=== PATIENT | male | born 1930 | race Hispanic/Latino ===

== ENCOUNTER 2018-04-12 00:31 | Inpatient (IN) | payer MEDICARE, OTHER ==
[2018-04-12] MEDS ORDERED: Sodium Chloride 0.9% 1,000 ML IV ONE ×2 (00:53→05:50)
--- NOTE | 2018-04-12 00:53 | C.PDOC ---
History Of Present Illness 87 year old male presents to the ED c/o nausea, vomit, and abdominal pain that started today. Patient reports symptoms started after he ate mussels and spinach for dinner tonight. Patient also c/o cough, able to speak in complete sentences. Patient denies fever, chills, diarrhea, CP, SOB, rash, sick contacts. Time Seen by Provider: 04/12/18 00:53 Chief Complaint (Nursing): Abdominal Pain History Per: Patient History/Exam Limitations: no limitations Onset/Duration Of Symptoms: Hrs Current Symptoms Are (Timing): Still Present Context: Food Severity: Moderate Pain Scale Rating Of: 5 Location Of Pain/Discomfort: Diffuse Radiation Of Pain To:: None Quality Of Discomfort: Dull, Cramping Associated Symptoms: Nausea, Vomiting. denies: Diarrhea, Urinary Symptoms Exacerbating Factors: Food Alleviating Factors: None Last Bowel Movement: Today Recent travel outside of the [place]: No Additional History Per: Family Past Medical History Reviewed: Historical Data, Nursing Documentation, Vital Signs Vital Signs: Last Vital Signs Temp 98.2 F 04/12/18 00:34 Pulse 108 H 04/12/18 00:34 Resp 20 04/12/18 00:34 BP 130/92 H 04/12/18 00:34 Pulse Ox 98 04/12/18 00:34 - Medical History PMH: Asthma, HTN Surgical History: Coronary Stent Family History: States: Unknown Family Hx - Social History Hx Alcohol Use: No Hx Substance Use: No - Immunization History Hx Tetanus Toxoid Vaccination: No Hx Influenza Vaccination: Yes Hx Pneumococcal Vaccination: No Review Of Systems Constitutional: Negative for: Fever, Chills ENT: Negative for: Throat Pain Cardiovascular: Negative for: Chest Pain, Palpitations Respiratory: Positive for: Cough. Negative for: Shortness of Breath Gastrointestinal: Positive for: Nausea, Vomiting, Abdominal Pain. Negative for: Diarrhea Genitourinary: Negative for: Dysuria Musculoskeletal: Negative for: Back Pain Skin: Negative for: Rash Neurological: Negative for: Weakness, Numbness, Headache Psych: Negative for: Anxiety Physical Exam - Physical Exam Appears: Non-toxic, In Acute Distress Skin: Warm, Dry Head: Normacephalic Eye(s): bilateral: Normal Inspection Oral Mucosa: Moist Neck: Supple Chest: Symmetrical Cardiovascular: Rhythm Regular Respiratory: No Rales, Rhonchi (scattered), No Wheezing Gastrointestinal/Abdominal: Bowel Sounds (active), Soft, Tenderness (diffuse mildly), No Guarding, No Rebound Back: Normal Inspection Extremity: Normal ROM Extremity: Bilateral: Atraumatic, Normal Color And Temperature, Normal ROM Pulses: Left Dorsalis Pedis: Normal, Right Dorsalis Pedis: Normal Neurological/Psych: Oriented x3, Normal Speech, Normal Cognition Gait: Steady ED Course And Treatment - Laboratory Results Result Diagrams: 04/12/18 01:09 04/12/18 01:09 ECG: Interpreted By Me, Viewed By Me ECG Rhythm: Sinus Rhythm (93), Nonspecific Changes (lahb,occ pvc's) O2 Sat by Pulse Oximetry: 98 (ON RA) Pulse Ox Interpretation: Normal - Radiology CXR: Interpreted by Me, Viewed By Me CXR Interpretation: Yes: Cardiomegaly. No: Infiltrates, Fracture, Pnemothorax - CT Scan/US CT abd/pelvis Other Rad Studies (CT/US): Read By Radiologist, Radiology Report Reviewed CT/US Interpretation: CT SCAN OF THE ABDOMEN AND PELVIS WITH CONTRAST. CLINICAL HISTORY: Hematemesis. TECHNIQUE: Multiple axial and coronal CT images were obtained through the abdomen and pelvis after administration of intravenous contrast material. COMMENTS: Bilateral basilar atelectatic pulmonary changes. Large hiatal hernia. Fluid-filled distended stomach. Cholelithiasis. Uncomplicated colonic diverticulosis. Fat containing umbilical hernia without incarceration. The liver is of uniform attenuation without mass or defect. There is no intra or extrahepatic biliary ductal dilatation. The spleen is normal. The gallbladder is within normal limits. The pancreas is of normal contour and attenuation characteristics. There is no evidence of adrenal mass. 3.5 cm left peripelvic megan;l cyst . Both kidneys demonstrate prompt and equal nephrograms. The kidneys are normal in size, shape and configuration. There is no evidence of renal or ureteral mass. No renal or ureteral calculi are identified. There is no hydroureter or hydronephrosis. No evidence for appendicitis. There is no bowel wall thickening. No evidence for small or large bowel obstruction. There is no evidence of abdominal ascites or lymphadenopathy. There is no evidence of intrinsic or extrinsic bladder mass. There is no pelvic ascites or lymphadenopathy. Images of the lung bases show no evidence of pleural or parenchymal mass. There are no pleural effusions. The bony structures are free of lytic or blastic lesions. IMPRESSION: Bilateral basilar atelectatic pulmonary changes. Large hiatal hernia. Fluid-filled distended stomach. Probably gastroparesis. Insertion of nasogastric tube is suggested to decompress the significantly distended stomach. Cholelithiasis. Uncomplicated colonic diverticulosis. Fat containing umbilical hernia without incarceration. . Electronically signed on Apr 12, 2018 4:57:57 AM EST by: Cindi Kirk M.D., Certified by ABR, MSK, Neuroradiology Progress Note: Plan: - Labs. - CXR. - Protonix 40 mg IVP. - IV fluids. - Zofran 4 mg IVP. - UA. While in the ED patient had an episode of coffee ground emesis. I've placed an 18 fr ngt right nare without any difficulty. pt tolerated the procedure well. Approx 500 cc of black stomach contets drained(heme +) Critical Care Time - Critical Care Note Total Time (in mins): 30 Documented critical care: time excludes all time spent performing seperately billable procedures. Disposition Discussed With : Kyle Woods Comment: accepted the pt on his service and took over the care at 5:17 AM Doctor Will See Patient In The: Hospital Counseled Patient/Family Regarding: Studies Performed, Diagnosis - Disposition Disposition: HOSPITALIZED Disposition Time: 00:53 Condition: FAIR Forms: [facility] (Martiniquais) - POA Present On Arrival: Poor Glycemic Control - Clinical Impression Clinical Impression: Abdominal pain, Nausea, Vomiting, Upper GI bleed - Scribe Statement The provider has reviewed the documentation as recorded by the Scribe Yehuda Damico All medical record entries made by the Scribe were at my direction and personally dictated by me. I have reviewed the chart and agree that the record accurately reflects my personal performance of the history, physical exam, medical decision making, and the department course for this patient. I have also personally directed, reviewed, and agree with the discharge instructions and disposition. Decision To Admit - Pt Status Changed To: Hospital Disposition Of: Inpatient - Admit Certification Admit to Inpatient:: After my assessment, the patient will require hospitalization for at least two midnights. This is because of the severity of symptoms shown, intensity of services needed, and/or the medical risk in this patient being treated as an outpatient. - InPatient: Physician Admission Certification:: After my assessment, the patient will require hospitalization for at least two midnights. This is because of the severity of symptoms shown, intensity of services needed, and/or the medical risk in this patient being treated as an outpatient. - . Bed Request Type: Telemetry Admitting Physician: Kyle Woods Patient Diagnosis: Abdominal pain, Nausea, Vomiting, Upper GI bleed
[2018-04-12] MEDS ORDERED: Sodium Chloride 0.9% 1,000 ML ONE (01:12)
[2018-04-12 01:22] LABS: BASO % 0.2 % (0.0-2.0); HEMOGLOBIN 13.7 g/dL (12.0-18.0); LYMPH # 0.6 K/uL (1.0-4.3); LYMPH % 3.2 % (20.0-40.0); MEAN CELL VOLUME 88.6 fL (80.0-94.0); MEAN CORPUSCULAR HEMOGLOBIN 29.8 pg (27.0-31.0); MEAN CORPUSCULAR HGB CONC 33.6 g/dL (33.0-37.0); MONO # 1.2 K/uL (0.0-0.8); MONO % 6.5 % (0.0-10.0); NEUT # 16.4 K/uL (1.8-7.0); NEUT % 90.1 % (50.0-75.0); PLATELET COUNT 334 K/uL (130-400); RED CELL DISTRIBUTION WIDTH 14.7 % (11.5-14.5); WHITE BLOOD COUNT 18.2 K/uL (4.8-10.8)
[2018-04-12 01:29] LABS: ALB/GLOB RATIO 1.4 (1.0-2.1); ALBUMIN 4.2 g/dL (3.5-5.0); ALT/SGPT 26 U/L (21-72); AST/SGOT 27 U/L (17-59); BLOOD UREA NITROGEN 38 mg/dL (9-20); GFR NON-AFRICAN AMERICAN 57; LIPASE 21 U/L (23-300)
[2018-04-12] MEDS: Albuterol-Ipratrop 3 mg / 0.5 (3 ml) UD IH SCH ×2 (01:45→02:01)
[2018-04-12] MEDS ORDERED: Albuterol-Ipratrop 3 mg / 0.5 (3 ml) UD ONE (02:01)
[2018-04-12 02:13] LABS: MONOCYTE 6 % (0-10); NEUTROPHIL 92 % (50-75); PLATELET ESTIMATE NORMAL (NORMAL); REACTIVE LYMPHOCYTES 2 % (0-0); TOTAL CELLS COUNTED 100
[2018-04-12 03:01] LABS: LYMPHOCYTE 0 % (20-40)
[2018-04-12] MEDS ORDERED: Piperacillin/Tazobact 3.375 gm 100 ML IVPB STA (03:12)
[2018-04-12] MEDS ORDERED: Iodixanol 320 MG/ML 100 ML BOTTLE IV ONE (03:51)
[2018-04-12] MEDS ORDERED: Piperacillin/Tazobact 3.375 gm 100 ML IVPB ONE (04:24)
[2018-04-12 07:03] LABS: INR 1.2; PROTHROMBIN TIME 12.6 SECONDS (9.7-12.2)
[2018-04-12] MEDS: Dextrose 5%/0.45% NS 1,000 ML IV SCH ×2 (07:07→18:00)
--- NOTE | 2018-04-12 07:27 | DS ---
I was called for GI consultation early this morning 04/12/2018. The patient is seen in the emergency room. Case discussed at length with the ER physician as well as the staff in the ER. All the available lab and radiology study results seen. This is an 87-year-old male, presented with nausea and vomiting, abdominal pain with reported hematemesis of coffee-ground material, measured about 1000 mL as per the ER statement. He was found to have leukocytosis of 18.2 with blood glucose level 151, BUN 38 but normal creatinine with CO2 content of 32 indicative of metabolic respiratory alkalosis. The patient has stable vital signs and the PT and PTT ordered by myself for potential upper endoscopy at a.m. IMPRESSION: 1. Upper gastrointestinal bleeding. 1. Known history of hypertension and bronchial asthma. 3. Leukocytosis, possibility of aspiration pneumonia was raised. 4. Official report of abdominal and pelvic CAT scan is still however pending in the computer. SUGGESTIONS: 1. Reglan IV. NG tube for gravity. 2. Flagyl IV. 3. Upper endoscopy at a.m. 4. Correct an underlying coagulopathy. Johann Guerra MD
[2018-04-12] MEDS: metroNIDAZOLE IV 500 mg/100 ml 500 MG/100 ML BAG IVPB SCH ×3 (07:35→22:37)
[2018-04-12 09:11] LABS: HEMOGLOBIN 12.8 g/dL (12.0-18.0); MEAN CELL VOLUME 89.3 fL (80.0-94.0); MEAN CORPUSCULAR HEMOGLOBIN 30.1 pg (27.0-31.0); MEAN CORPUSCULAR HGB CONC 33.7 g/dL (33.0-37.0); MEAN PLATELET VOLUME 7.8 fL (7.2-11.7); RBC 4.24 Mil/uL (4.40-5.90); RED CELL DISTRIBUTION WIDTH 15.1 % (11.5-14.5); WHITE BLOOD COUNT 17.6 K/uL (4.8-10.8)
--- NOTE | 2018-04-12 09:16 | CT ---
Date of service: 04/12/2018 PROCEDURE: CT Abdomen and Pelvis with contrast HISTORY: hematemesis COMPARISON: None available. TECHNIQUE: CT scan of the abdomen and pelvis was performed after administration of intravenous contrast. Oral contrast was not administered. Coronal and sagittal reformatted images were obtained. Contrast dose: 100 mL Visipaque 320 Radiation dose: Total exam DLP = 980.14 mGy-cm. This CT exam was performed using one or more of the following dose reduction techniques: Automated exposure control, adjustment of the mA and/or kV according to patient size, and/or use of iterative reconstruction technique. FINDINGS: LOWER THORAX: The visualized right lung is clear. There is compressive atelectasis in the left medial lung base. LIVER: Normal in size with homogeneous enhancement. Fatty liver. No gross lesion or ductal dilatation. GALLBLADDER AND BILE DUCTS: Small calcified gallstones without wall thickening or pericholecystic fluid. PANCREAS: Mild fatty atrophy of the pancreas. No gross lesion or ductal dilatation. SPLEEN: Normal in size and appearance. ADRENALS: No discrete nodule. KIDNEYS AND URETERS: Normal in size with homogeneous enhancement. No hydronephrosis. No solid mass. VASCULATURE: No aortic aneurysm. There are advanced aortic atherosclerotic calcifications present. BOWEL: Evaluation of the bowel is limited in the absence of oral contrast. There are fluid-filled mildly prominent small bowel loops. There is extensive colonic diverticulosis without CT evidence for acute diverticulitis. The colon is grossly normal in appearance. No bowel wall thickening or obstruction. APPENDIX: Normal appendix. PERITONEUM: No free fluid. No free air. LYMPH NODES: No enlarged lymph nodes. BLADDER: Well distended and normal in appearance. REPRODUCTIVE: The prostate gland is normal in size. BONES: No acute fracture. There is diffuse bone demineralization and multilevel degenerative changes in the spine. OTHER FINDINGS: The stomach is markedly distended and fluid-filled. There is a large sliding hiatal hernia with herniation of most of the stomach including the gastric cardia and body. There is a small fat containing umbilical hernia IMPRESSION: 1. Large sliding hiatal hernia with herniation of a large portion of stomach including fluid-filled distended gastric cardia and body.. 2. Fluid-filled mildly prominent small bowel loops may represent nonspecific acute infectious/inflammatory enteritis. No bowel obstruction. 3. Extensive colonic diverticulosis without CT evidence for acute diverticulitis. 4. Cholelithiasis. A preliminary report was provided by [facility] services. The final report is tagged to the PA review folder.
[2018-04-12 09:28] LABS: SQUAMOUS EPITHIAL < 1 /hpf (0-5); URINE BILIRUBIN NEGATIVE (NEGATIVE); URINE BLOOD NEGATIVE (NEGATIVE); URINE CLARITY Clear (Clear); URINE COLOR Yellow (YELLOW); URINE GLUCOSE (UA) NORMAL (Normal); URINE LEUKOCYTE ESTERASE NEG Leu/uL (Negative); URINE PROTEIN NEGATIVE (NEGATIVE); URINE UROBILINOGEN NORMAL mg/dL (0.2-1.0)
--- NOTE | 2018-04-12 10:07 | RAD ---
Date of service: 04/12/2018 HISTORY: Cough COMPARISON: No prior. TECHNIQUE: Chest PA and lateral FINDINGS: LINES AND TUBES: None. LUNG AND PLEURA: The lungs are well inflated and clear. No pleural effusion or pneumothorax. HEART AND MEDIASTINUM: Cardiomegaly. There are aortic atherosclerotic calcifications present. The hilar and mediastinal contours are within normal limits. SKELETAL STRUCTURES: The bony structures are within normal limits for the patient's age. VISUALIZED UPPER ABDOMEN: Normal. OTHER FINDINGS: None. IMPRESSION: No active pulmonary disease. Large hiatal hernia.
[2018-04-12 16:52] LABS: HEMOGLOBIN 12.1 g/dL (12.0-18.0); MEAN CELL VOLUME 90.1 fL (80.0-94.0); MEAN CORPUSCULAR HEMOGLOBIN 29.3 pg (27.0-31.0); MEAN CORPUSCULAR HGB CONC 32.5 g/dL (33.0-37.0); MEAN PLATELET VOLUME 7.9 fL (7.2-11.7); RBC 4.13 Mil/uL (4.40-5.90); RED CELL DISTRIBUTION WIDTH 14.9 % (11.5-14.5); WHITE BLOOD COUNT 14.6 K/uL (4.8-10.8)
[2018-04-12] MEDS ORDERED: Albuterol-Ipratrop 3 mg / 0.5 (3 ml) UD INH STA (20:53)
--- NOTE | 2018-04-12 22:23 | CP.PCM.HP ---
Past Patient History - Past Medical History & Family History Past Medical History?: Yes - Past Social History Smoking Status: Never Smoked - CARDIAC Hx Hypertension: Yes - PULMONARY Hx Asthma: Yes - NEUROLOGICAL Hx Neurological Disorder: No - HEENT Hx HEENT Problems: No - MUSCULOSKELETAL/RHEUMATOLOGICAL Hx Falls: No - GASTROINTESTINAL Hx Constipation: Yes - PSYCHIATRIC Hx Substance Use: No - SURGICAL HISTORY Hx Coronary Stent: Yes - ANESTHESIA Hx Anesthesia: Yes Hx Anesthesia Reactions: No Has any member of the family had a problem w/ anesthesia?: No Meds Allergies/Adverse Reactions: Allergies Allergy/AdvReac Type Severity Reaction Status Date / Time No Known Allergies Allergy Unverified 04/12/18 00:41 Results - Vital Signs Recent Vital Signs: Last Vital Signs Temp 98.5 F 04/12/18 07:36 Pulse 85 04/12/18 21:08 Resp 20 04/12/18 07:36 BP 104/55 L 04/12/18 07:36 Pulse Ox 98 04/12/18 07:36 - Labs Result Diagrams: 04/12/18 16:38 04/12/18 01:09 Labs: Laboratory Results - last 24 hr 04/12/18 04/12/18 04/12/18 01:09 01:09 01:40 WBC 18.2 H RBC 4.60 Hgb 13.7 Hct 40.8 MCV 88.6 MCH 29.8 MCHC 33.6 RDW 14.7 H Plt Count 334 MPV 8.0 Neut % (Auto) 90.1 H Lymph % (Auto) 3.2 L [place] % (Auto) 6.5 Eos % (Auto) 0.0 Baso % (Auto) 0.2 Neut # (Auto) 16.4 H Lymph # (Auto) 0.6 L [place] # (Auto) 1.2 H Eos # (Auto) 0.0 Baso # (Auto) 0.0 Neutrophils % (Manual) 92 H Lymphocytes % (Manual) 0 L Reactive Lymphs % 2 H Monocytes % (Manual) 6 Platelet Estimate Normal PT INR APTT Sodium 137 Potassium 3.7 Chloride 96 L Carbon Dioxide 32 H Anion Gap 13 BUN 38 H Creatinine 1.2 Est GFR ( Amer) > 60 Est GFR (Non-Af Amer) 57 Random Glucose 151 H Calcium 9.0 Total Bilirubin 0.8 AST 27 ALT 26 Alkaline Phosphatase 105 Total Protein 7.3 Albumin 4.2 Globulin 3.0 Albumin/Globulin Ratio 1.4 Lipase 21 L Carcinoembryonic Ag Urine Color Urine Clarity Urine pH Ur Specific Caro Urine Protein Urine Glucose (UA) Urine Ketones Urine Blood Urine Nitrate Urine Bilirubin Urine Urobilinogen Ur Leukocyte Esterase Urine WBC (Auto) Urine RBC (Auto) Ur Squamous Epith Cells Stool Occult Blood Blood Type O POSITIVE Antibody Screen Negative 04/12/18 04/12/18 04/12/18 04:14 06:45 09:09 WBC RBC Hgb Hct MCV MCH MCHC RDW Plt Count MPV Neut % (Auto) Lymph % (Auto) [place] % (Auto) Eos % (Auto) Baso % (Auto) Neut # (Auto) Lymph # (Auto) [place] # (Auto) Eos # (Auto) Baso # (Auto) Neutrophils % (Manual) Lymphocytes % (Manual) Reactive Lymphs % Monocytes % (Manual) Platelet Estimate PT 12.6 H INR 1.2 APTT 27 Sodium Potassium Chloride Carbon Dioxide Anion Gap BUN Creatinine Est GFR ( Amer) Est GFR (Non-Af Amer) Random Glucose Calcium Total Bilirubin AST ALT Alkaline Phosphatase Total Protein Albumin Globulin Albumin/Globulin Ratio Lipase Carcinoembryonic Ag Urine Color Yellow Urine Clarity Clear Urine pH 5.0 Ur Specific Caro 1.010 Urine Protein Negative Urine Glucose (UA) Normal Urine Ketones Negative Urine Blood Negative Urine Nitrate Negative Urine Bilirubin Negative Urine Urobilinogen Normal Ur Leukocyte Esterase Neg Urine WBC (Auto) < 1 Urine RBC (Auto) < 1 Ur Squamous Epith Cells < 1 Stool Occult Blood Positive H Blood Type Antibody Screen 04/12/18 04/12/18 04/12/18 09:09 09:09 16:38 WBC 17.6 H 14.6 H RBC 4.24 L 4.13 L Hgb 12.8 12.1 Hct 37.9 37.2 MCV 89.3 90.1 MCH 30.1 29.3 MCHC 33.7 32.5 L RDW 15.1 H 14.9 H Plt Count 283 248 MPV 7.8 7.9 Neut % (Auto) Lymph % (Auto) [place] % (Auto) Eos % (Auto) Baso % (Auto) Neut # (Auto) Lymph # (Auto) [place] # (Auto) Eos # (Auto) Baso # (Auto) Neutrophils % (Manual) Lymphocytes % (Manual) Reactive Lymphs % Monocytes % (Manual) Platelet Estimate PT INR APTT Sodium Potassium Chloride Carbon Dioxide Anion Gap BUN Creatinine Est GFR ( Amer) Est GFR (Non-Af Amer) Random Glucose Calcium Total Bilirubin AST ALT Alkaline Phosphatase Total Protein Albumin Globulin Albumin/Globulin Ratio Lipase Carcinoembryonic Ag 2.6 Urine Color Urine Clarity Urine pH Ur Specific Caro Urine Protein Urine Glucose (UA) Urine Ketones Urine Blood Urine Nitrate Urine Bilirubin Urine Urobilinogen Ur Leukocyte Esterase Urine WBC (Auto) Urine RBC (Auto) Ur Squamous Epith Cells Stool Occult Blood Blood Type Antibody Screen
[2018-04-13] MEDS: Dextrose 5%/0.45% NS 1,000 ML IV SCH ×3 (00:59→18:00)
[2018-04-13] MEDS: Albuterol-Ipratrop 3 mg / 0.5 (3 ml) UD INH SCH ×3 (01:32→19:15)
[2018-04-13 02:02] LABS: HEMOGLOBIN 11.7 g/dL (12.0-18.0); MEAN CELL VOLUME 89.5 fL (80.0-94.0); MEAN CORPUSCULAR HEMOGLOBIN 29.8 pg (27.0-31.0); MEAN CORPUSCULAR HGB CONC 33.2 g/dL (33.0-37.0); MEAN PLATELET VOLUME 7.8 fL (7.2-11.7); RBC 3.94 Mil/uL (4.40-5.90); RED CELL DISTRIBUTION WIDTH 14.8 % (11.5-14.5); WHITE BLOOD COUNT 10.8 K/uL (4.8-10.8)
--- NOTE | 2018-04-13 02:52 | HP ---
CHIEF COMPLAINT: Nausea, vomiting, abdominal pain x1 day. HISTORY OF PRESENT ILLNESS: This is an 87-year-old elderly male who is poor historian and unable to give enough information but according to record, he has history of asthma, hypertension, and coronary artery disease, status post stent. He came in because of abdominal pain which is diffuse with abdominal distention for an unknown amount of time; although the patient links this to him eating mussels and spinach on the day of the admission. According to the patient, he has cough. He denies any shortness of breath. He denies any fever, chills. He denies any diarrhea, chest pain, shortness of breath, rash, or skin tags. The patient denies any dysuria, hematuria or pyuria. He denies any history of nocturia. He denies any history of urgency, hesitancy. The patient denies any history of prior abdominal problem. He denies any hip pain, neck pain or leg pain. He denies any tingling, numbness or paresthesias. He denies any history of fever, . PAST MEDICAL HISTORY: Asthma, hypertension, coronary artery disease, status post stent. ALLERGIES: UNKNOWN. CURRENT MEDICATIONS: At home, aspirin. FAMILY HISTORY: Noncontributory. PHYSICAL EXAMINATION: GENERAL: An elderly male who is a poor historian, complying with the question. VITAL SIGNS: Blood pressure 103/59, pulse 80, respiratory rate 22, and temperature 98.5. SKIN: No rashes, no bruises, no purpura. HEENT: Atraumatic and normocephalic. Negative pallor. Negative jaundice. Extraocular movements are intact. NECK: Supple. No JVD. No lymph nodes. No thyromegaly. CHEST WALL: Bilateral symmetrical expansion. No deformity. LUNGS: Clear. No rales, no rhonchi. CARDIOVASCULAR SYSTEM: S1 and S2, regular. No heave, no thrill. ABDOMEN: Distended. Bowel sounds are diminished and is very diffusely tender. RECTAL: Enlarged prostate. EXTREMITIES: No clubbing, cyanosis, or edema. CENTRAL NERVOUS SYSTEM: Awake, alert, and oriented x3. ASSESSMENT: 1. Rule out small bowel obstruction. 2. Diverticulosis, rule out diverticulitis. 3. Large hiatal hernia. 4. Dehydration. PLAN: Admit. Detailed orders are written. Seen and examined. Kyle Woods MD
--- NOTE | 2018-04-13 05:39 | CP.PCM.CON ---
History of Present Illness - History of Present Illness History of Present Illness: Surgery Consult Note for Dr. Haas 87 year old male, past medical history significant for hypertension and asthma, consulted for small bowel obstruction. Patient states he came into the emergency department with nausea, vomiting and abdominal pain. In the ED, he was noted to have coffee ground emesis for which an NGT was placed that had an initial output of 850cc. GI was consulted who eventually removed the NGT and scheduled patient for an EGD to be done 04/13. Last bowel movement was 3-4 days ago. Denies passing flatus. Cannot recall if he has had a colonoscopy or EGD done in the past. Patient admits to a cough. Denies f/c, abdominal pain, n/v/d, SOB, CP, palpitations, headaches, dizziness, or urinary symptoms. PMH: See above PSH: Coronary stents, hernia repair FH: Noncontributory SH: Denies tobacco, alcohol, drugs ALL: NKDA Meds: See MAR Review of Systems - Constitutional Constitutional: absent: Chills, Fever - EENT Eyes: absent: Blurred Vision, Change in Vision Nose/Mouth/Throat: absent: Nasal Congestion, Nasal Discharge - Cardiovascular Cardiovascular: absent: Chest Pain, Dyspnea - Respiratory Respiratory: Cough. absent: Dyspnea - Gastrointestinal Gastrointestinal: absent: Abdominal Pain, Nausea, Vomiting - Genitourinary Genitourinary: absent: Difficulty Urinating, Dysuria - Musculoskeletal Musculoskeletal: absent: Back Pain, Neck Pain - Integumentary Integumentary: absent: Bleeding Lesions, New Lesions - Neurological Neurological: absent: Confusion, Dizziness, Headaches - Psychiatric Psychiatric: absent: Anxiety, Depression Past Patient History - Past Medical History & Family History Past Medical History?: Yes - Past Social History Smoking Status: Never Smoked - CARDIAC Hx Hypertension: Yes - PULMONARY Hx Asthma: Yes - NEUROLOGICAL Hx Neurological Disorder: No - HEENT Hx HEENT Problems: No - MUSCULOSKELETAL/RHEUMATOLOGICAL Hx Falls: No - GASTROINTESTINAL Hx Constipation: Yes - PSYCHIATRIC Hx Substance Use: No - SURGICAL HISTORY Hx Coronary Stent: Yes - ANESTHESIA Hx Anesthesia: Yes Hx Anesthesia Reactions: No Has any member of the family had a problem w/ anesthesia?: No Meds Allergies/Adverse Reactions: Allergies Allergy/AdvReac Type Severity Reaction Status Date / Time No Known Allergies Allergy Unverified 04/12/18 00:41 - Medications Medications: Current Medications Albuterol/Ipratropium (Duoneb 3 Mg/0.5 Mg (3 Ml) Ud) 3 ml INH RQ6 [place] Last Admin: 04/13/18 01:32 Dose: Not Given Dextrose/Sodium Chloride (Dextrose 5%/0.45% Ns 1000 Ml) 1,000 mls @ 80 mls/hr IV .[id number] [place] Last Admin: 04/13/18 00:59 Dose: 80 mls/hr Metronidazole (Flagyl) 500 mg in 100 mls @ 100 mls/hr IVPB Q8H [facility]; Protocol Last Admin: 04/12/18 22:37 Dose: 100 mls/hr Ceftriaxone Sodium 1 gm/ (Sodium Chloride) 100 mls @ 100 mls/hr IVPB DAILY [facility]; Protocol Last Admin: 04/12/18 09:23 Dose: 100 mls/hr Metoclopramide HCl (Reglan) 5 mg IVP Q6H [place] Last Admin: 04/13/18 03:58 Dose: 5 mg Pantoprazole Sodium (Protonix Inj) 40 mg IVP Q12H [facility] Last Admin: 04/12/18 21:58 Dose: 40 mg Pneumococcal Polyvalent Vaccine (Pneumovax 23 Vaccine) 0.5 ml IM .ONCE ONE Stop: 04/15/18 10:01 Physical Exam - Constitutional Appears: Well, Non-toxic, No Acute Distress - Head Exam Head Exam: ATRAUMATIC, NORMAL INSPECTION, NORMOCEPHALIC - Eye Exam Eye Exam: EOMI - ENT Exam ENT Exam: Mucous Membranes Dry - Respiratory Exam Respiratory Exam: NORMAL BREATHING PATTERN. absent: Respiratory Distress - Cardiovascular Exam Cardiovascular Exam: REGULAR RHYTHM. absent: Tachycardia - GI/Abdominal Exam GI & Abdominal Exam: Normal Bowel Sounds, Soft. absent: Distended, Guarding, Rebound, Tenderness - Neurological Exam Neurological exam: Alert - Psychiatric Exam Psychiatric exam: Normal Affect, Normal Mood - Skin Skin Exam: Dry, Intact, Normal Color, Warm Results - Vital Signs Recent Vital Signs: Last Vital Signs Temp 98.4 F 04/12/18 23:45 Pulse 76 04/12/18 23:45 Resp 20 04/12/18 23:45 BP 133/83 04/12/18 23:45 Pulse Ox 95 04/12/18 23:45 - Labs Result Diagrams: 04/13/18 02:00 04/12/18 01:09 Labs: Laboratory Results - last 24 hr 04/12/18 04/12/18 04/12/18 06:45 09:09 09:09 WBC 17.6 H RBC 4.24 L Hgb 12.8 Hct 37.9 MCV 89.3 MCH 30.1 MCHC 33.7 RDW 15.1 H Plt Count 283 MPV 7.8 PT 12.6 H INR 1.2 APTT 27 Carcinoembryonic Ag Urine Color Yellow Urine Clarity Clear Urine pH 5.0 Ur Specific [place] 1.010 Urine Protein Negative Urine Glucose (UA) Normal Urine Ketones Negative Urine Blood Negative Urine Nitrate Negative Urine Bilirubin Negative Urine Urobilinogen Normal Ur Leukocyte Esterase Neg Urine WBC (Auto) < 1 Urine RBC (Auto) < 1 Ur Squamous Epith Cells < 1 04/12/18 04/12/18 04/13/18 09:09 16:38 02:00 WBC 14.6 H 10.8 RBC 4.13 L 3.94 L Hgb 12.1 11.7 L Hct 37.2 35.3 MCV 90.1 89.5 MCH 29.3 29.8 MCHC 32.5 L 33.2 RDW 14.9 H 14.8 H Plt Count 248 230 MPV 7.9 7.8 PT INR APTT Carcinoembryonic Ag 2.6 Urine Color Urine Clarity Urine pH Ur Specific [place] Urine Protein Urine Glucose (UA) Urine Ketones Urine Blood Urine Nitrate Urine Bilirubin Urine Urobilinogen Ur Leukocyte Esterase Urine WBC (Auto) Urine RBC (Auto) Ur Squamous Epith Cells Assessment & Plan - Assessment and Plan (Free Text) Assessment: 87M w/ upper GI bleed CT scan shows large sliding hiatal hernia, no bowel obstruction Plan: EGD scheduled for this morning - f/u pathology F/u GI recommendations Continue to monitor for nausea/vomiting AM labs IVF Antiemetics and analgesics PRN Medical management per primary team Further recommendations per Dr. Samina Armas PGY1
[2018-04-13] MEDS ORDERED: Benzocaine/Menthol (Cepacol) Lozenge MT PRN (05:46)
[2018-04-13] MEDS: metroNIDAZOLE IV 500 mg/100 ml 500 MG/100 ML BAG IVPB SCH ×3 (08:05→22:37)
[2018-04-13] MEDS ORDERED: Lactated Ringer's 1,000 ML IV ONE (10:40)
[2018-04-13] MEDS ORDERED: Bisacodyl 5mg EC Tab PO ONE (10:56)
[2018-04-13] MEDS ORDERED: Albuterol-Ipratrop 3 mg / 0.5 (3 ml) UD INH STA ×2 (11:05→11:19)
[2018-04-13] MEDS ORDERED: Etomidate 20 mg/10ml Inj IV ONE (11:23)
[2018-04-13 11:37] LABS: HEMOGLOBIN 10.9 g/dL (12.0-18.0); MEAN CELL VOLUME 89.4 fL (80.0-94.0); MEAN CORPUSCULAR HEMOGLOBIN 30.3 pg (27.0-31.0); MEAN CORPUSCULAR HGB CONC 33.9 g/dL (33.0-37.0); RBC 3.6 Mil/uL (4.40-5.90); RED CELL DISTRIBUTION WIDTH 14.5 % (11.5-14.5); WHITE BLOOD COUNT 9.6 K/uL (4.8-10.8)
--- NOTE | 2018-04-13 12:40 | RAD ---
HISTORY: CONGESTION S/P GENERAL ANESTHESIA COMPARISON: Chest x-ray performed 04/12/18 TECHNIQUE: Chest, one view. FINDINGS: Examination limited by habitus. LUNGS: Retrocardiac air-fluid level consistent with large hiatal hernia. Bibasilar atelectasis. Suspect small left pleural effusion. No definite pneumothorax. Please note that chest x-ray has limited sensitivity for the detection of pulmonary masses. CARDIOVASCULAR: Cardiomegaly. Ectatic aorta. Atherosclerotic calcifications present. OSSEOUS STRUCTURES: Degenerative changes. VISUALIZED UPPER ABDOMEN: Unremarkable. OTHER FINDINGS: None. IMPRESSION: Retrocardiac air-fluid level consistent with large hiatal hernia. Bibasilar atelectasis. Suspect small left pleural effusion. Cardiomegaly.
[2018-04-13] MEDS: Magnesium Citrate Oral SOL (300 ml) PO SCH ×2 (13:23→17:51)
--- NOTE | 2018-04-13 21:20 | CARD ---
APPROVED REPORT Date of service: 04/12/2018 EKG Measurement Heart [id number] <Conclusion> Sinus rhythm with occasional premature ventricular complexes Possible Left atrial enlargement Left posterior fascicular block ST & T wave abnormality, consider anterolateral ischemia Prolonged QT Abnormal ECG
--- NOTE | 2018-04-13 22:37 | CP.PCM.PN ---
Subjective - Subjective Subjective: dictated Objective - Vital Signs/Intake and Output Vital Signs (last 24 hours): Temp Pulse Resp BP Pulse Ox 98.1 F 84 20 111/66 93 L 04/13/18 15:11 04/13/18 16:00 04/13/18 15:11 04/13/18 15:11 04/13/18 15:11 Intake and Output: 04/13/18 04/14/18 18:59 06:59 Intake Total 640 Output Total 300 300 Balance -300 340 - Medications Medications: Current Medications Albuterol/Ipratropium (Duoneb 3 Mg/0.5 Mg (3 Ml) Ud) 3 ml INH RQ6 [place] Last Admin: 04/13/18 19:15 Dose: 3 ml Benzocaine/Menthol (Cepacol Sore Throat) 1 maulik MT Q6H PRN PRN Reason: Sore Throat Dextrose/Sodium Chloride (Dextrose 5%/0.45% Ns 1000 Ml) 1,000 mls @ 80 mls/hr IV .[id number] [place] Last Admin: 04/13/18 18:00 Dose: 80 mls/hr Metronidazole (Flagyl) 500 mg in 100 mls @ 100 mls/hr IVPB Q8H [place]; Protocol Last Admin: 04/13/18 22:37 Dose: 100 mls/hr Ceftriaxone Sodium 1 gm/ (Sodium Chloride) 100 mls @ 100 mls/hr IVPB DAILY [place]; Protocol Last Admin: 04/13/18 13:18 Dose: 100 mls/hr Magnesium Citrate (Citrate Of Mag) 60 ml PO BID [place] Stop: 04/14/18 18:01 Last Admin: 04/13/18 17:51 Dose: 60 ml Metoclopramide HCl (Reglan) 5 mg IVP Q6H [place] Last Admin: 04/13/18 21:36 Dose: 5 mg Pantoprazole Sodium (Protonix Inj) 40 mg IVP Q12H [place] Last Admin: 04/13/18 21:36 Dose: 40 mg Pneumococcal Polyvalent Vaccine (Pneumovax 23 Vaccine) 0.5 ml IM .ONCE ONE Stop: 04/15/18 10:01 - Labs Labs: 04/13/18 11:33 04/12/18 01:09 PT 12.6 SECONDS (9.7-12.2) H 04/12/18 06:45 INR 1.2 04/12/18 06:45 APTT 27 SECONDS (21-34) 04/12/18 06:45
[2018-04-14] MEDS: Albuterol-Ipratrop 3 mg / 0.5 (3 ml) UD INH SCH ×5 (01:03→19:15)
--- NOTE | 2018-04-14 03:55 | PN ---
DATE: 04/13/2018 SUBJECTIVE: The patient, Cyrus Rinaldi underwent endoscopy with GI and the patient was found to have clotted blood in the stomach. There is no apparent lesion. His H and H is stable after an initial drop, mostly likely with IV fluids. His stool was positive for occult blood. He is for colonoscopy. He denies any fever or chills. His esophagogastroduodenoscopy showed a large hiatal hernia which was pushed into his chest wall cavity. PHYSICAL EXAMINATION: GENERAL: The patient denies any shortness of breath. He is feeling better. VITAL SIGNS: Blood pressure is 111/66, pulse 87, respiratory rate 20, temperature 98.1. LUNGS: Clear. No rales. No rhonchi. Again, he had bowel sounds in the chest, because the hiatal hernia. CARDIOVASCULAR SYSTEM: S1 and S2 regular. ABDOMEN: Distended. ASSESSMENT: 1. A large hiatal hernia. 2. Rule out gastrointestinal bleed. 3. Dehydration. 4. Anemia due to gastrointestinal bleed. PLAN: Colonoscopy in the a.m. Monitor patient. Kyle Woods MD
[2018-04-14] MEDS: metroNIDAZOLE IV 500 mg/100 ml 500 MG/100 ML BAG IVPB SCH ×3 (06:54→22:48)
[2018-04-14 07:38] LABS: BASO % 0.1 % (0.0-2.0); HEMOGLOBIN 11.4 g/dL (12.0-18.0); LYMPH # 0.4 K/uL (1.0-4.3); MEAN CELL VOLUME 88.9 fL (80.0-94.0); MEAN CORPUSCULAR HEMOGLOBIN 30.5 pg (27.0-31.0); MEAN CORPUSCULAR HGB CONC 34.3 g/dL (33.0-37.0); MEAN PLATELET VOLUME 8.2 fL (7.2-11.7); MONO # 0.8 K/uL (0.0-0.8); MONO % 6.3 % (0.0-10.0); NEUT # 10.8 K/uL (1.8-7.0); NEUT % 90.6 % (50.0-75.0); PLATELET COUNT 274 K/uL (130-400); RBC 3.74 Mil/uL (4.40-5.90); RED CELL DISTRIBUTION WIDTH 15.1 % (11.5-14.5); WHITE BLOOD COUNT 11.9 K/uL (4.8-10.8)
[2018-04-14 08:48] LABS: LYMPHOCYTE 3 % (20-40); MONOCYTE 2 % (0-10); NEUTROPHIL 95 % (50-75); PLATELET ESTIMATE NORMAL (NORMAL); TOTAL CELLS COUNTED 100
--- NOTE | 2018-04-14 09:10 | PN ---
DATE: 04/14/2018 LOCATION: 660, bed B. SUBJECTIVE: A 78-year-old male seen and examined in rounds without significant clinical changes or reported active bleeding. Appeared to be more awake, alert, and oriented. Reported to have PVC on telemetry with intermittent period of dry cough. The patient is still n.p.o. for now. No reported nausea or vomiting. The entire chart is reviewed. Today's lab showed white blood cells of 11.9, hemoglobin 11.4, hematocrit 32.2 with normal platelet count. Rest of lab results still pending. Yesterday chest x-ray done, official report is seen with bibasilar atelectasis and possible small left pleural effusion with cardiomegaly. PHYSICAL EXAMINATION: GENERAL: An 87-year-old male, afebrile with pulse of 72, respiratory rate 18 to 20, blood pressure 122/66. HEENT: Pale dry oral mucous membrane. Nonicteric sclerae LUNGS: Few scattered crepitation. Decreased air entry at bases. HEART: Positive S1 and S2. ABDOMEN: Soft with mild generalized tenderness. No mass or organomegaly. No rebound tenderness or guarding. EXTREMITIES: Without significant edema, clubbing, or cyanosis. NEUROLOGIC: No reported new neurological deficits, sensory or motor. IMPRESSION: 1. Upper gastrointestinal bleeding, source of which is unclear so far. 2. 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 3. Known history of bronchial asthma, hypertension, coronary artery disease status post cardiac stent insertion. 4. Anemia most likely secondary to above. SUGGESTIONS: 1. Agree with your plan. 2. Antireflux measure. 3. Repeat upper endoscopy after adequate preparation. Further recommendation to follow. Johann Guerra MD
--- NOTE | 2018-04-14 10:31 | CP.PCM.PN ---
Subjective - Date & Time of Evaluation Date of Evaluation: 04/14/18 Time of Evaluation: 10:28 - Subjective Subjective: Vascular Surgery Progress Note for Dr. Haas 87M seen and evaluated at bedside this morning. Patient states he has been having black colored diarrhea since last night. He continues to have a cough. Denies f/c, n/v/d, SOB, CP, or urinary symptoms. Objective - Vital Signs/Intake and Output Vital Signs (last 24 hours): Temp Pulse Resp BP Pulse Ox 97.3 F L 98 H 20 155/90 H 96 04/14/18 07:00 04/14/18 07:00 04/14/18 07:00 04/14/18 07:00 04/14/18 07:00 Intake and Output: 04/14/18 04/14/18 06:59 18:59 Intake Total 640 760 Output Total 300 Balance 340 760 - Medications Medications: Current Medications Albuterol/Ipratropium (Duoneb 3 Mg/0.5 Mg (3 Ml) Ud) 3 ml INH RQ6 [place] Last Admin: 04/14/18 07:45 Dose: Not Given Benzocaine/Menthol (Cepacol Sore Throat) 1 maulik MT Q6H PRN PRN Reason: Sore Throat Dextrose/Sodium Chloride (Dextrose 5%/0.45% Ns 1000 Ml) 1,000 mls @ 80 mls/hr IV .[id number] [place] Last Admin: 04/13/18 18:00 Dose: 80 mls/hr Metronidazole (Flagyl) 500 mg in 100 mls @ 100 mls/hr IVPB Q8H [place]; Protocol Last Admin: 04/14/18 06:54 Dose: 100 mls/hr Ceftriaxone Sodium 1 gm/ (Sodium Chloride) 100 mls @ 100 mls/hr IVPB DAILY [place]; Protocol Last Admin: 04/13/18 13:18 Dose: 100 mls/hr Magnesium Citrate (Citrate Of Mag) 60 ml PO BID [place] Stop: 04/14/18 18:01 Last Admin: 04/13/18 17:51 Dose: 60 ml Metoclopramide HCl (Reglan) 5 mg IVP Q6H [place] Last Admin: 04/14/18 03:36 Dose: 5 mg Pantoprazole Sodium (Protonix Inj) 40 mg IVP Q12H [place] Last Admin: 04/13/18 21:36 Dose: 40 mg Pneumococcal Polyvalent Vaccine (Pneumovax 23 Vaccine) 0.5 ml IM .ONCE ONE Stop: 04/15/18 10:01 - Labs Labs: 04/14/18 07:33 04/12/18 01:09 PT 12.6 SECONDS (9.7-12.2) H 04/12/18 06:45 INR 1.2 04/12/18 06:45 APTT 27 SECONDS (21-34) 04/12/18 06:45 - Constitutional Appears: Well, Non-toxic, No Acute Distress - Eye Exam Eye Exam: EOMI - ENT Exam ENT Exam: Mucous Membranes Moist - Respiratory Exam Respiratory Exam: NORMAL BREATHING PATTERN. absent: Respiratory Distress - GI/Abdominal Exam GI & Abdominal Exam: Soft, Normal Bowel Sounds. absent: Tenderness - Neurological Exam Neurological Exam: Alert, Awake - Psychiatric Exam Psychiatric exam: Normal Affect, Normal Mood - Skin Skin Exam: Dry, Intact, Normal Color, Warm Assessment and Plan - Assessment and Plan (Free Text) Assessment: 87M w/ GI bleed Plan: F/u repeat EGD ADAT per GI Medical management per primary team No surgical intervention indicated at this time Please reconsult as needed Josue Armas PGY1
[2018-04-14] MEDS ORDERED: Lactated Ringer's 1,000 ML IV ONE (10:50)
[2018-04-14] MEDS ORDERED: Propofol 10 mg/ml Inj (20 ML) ONE (10:51)
[2018-04-14] MEDS ORDERED: Lidocaine Hydrochloride 5 ML INJ ONE (10:53)
[2018-04-14] MEDS ORDERED: Albuterol HFA 90 mcg/actuation (8 g) ONE (10:53)
[2018-04-14] MEDS ORDERED: Magnesium Citrate Oral SOL (300 ml) PO ONE (13:30)
[2018-04-14] MEDS: Dextrose 5%/0.45% NS 1,000 ML IV SCH ×3 (14:07→19:57)
[2018-04-14] MEDS: Magnesium Citrate Oral SOL (300 ml) PO SCH (18:10)
[2018-04-14] MEDS: guaiFENesin 600 mg ER Tab PO SCH (19:56)
--- NOTE | 2018-04-14 21:29 | CP.PCM.PN ---
Subjective - Date & Time of Evaluation Date of Evaluation: 04/14/18 Time of Evaluation: 07:00 - Subjective Subjective: dictated Objective - Vital Signs/Intake and Output Vital Signs (last 24 hours): Temp Pulse Resp BP Pulse Ox 97.3 F L 100 H 20 145/76 99 04/14/18 15:00 04/14/18 16:00 04/14/18 15:00 04/14/18 15:00 04/14/18 15:00 Intake and Output: 04/14/18 04/15/18 18:59 06:59 Intake Total 760 Balance 760 - Medications Medications: Current Medications Albuterol/Ipratropium (Duoneb 3 Mg/0.5 Mg (3 Ml) Ud) 3 ml INH RQ6 [place] Last Admin: 04/14/18 19:15 Dose: 3 ml Benzocaine/Menthol (Cepacol Sore Throat) 1 maulik MT Q6H PRN PRN Reason: Sore Throat Guaifenesin (Mucinex [place]) 600 mg PO BID [place] Last Admin: 04/14/18 19:56 Dose: 600 mg Dextrose/Sodium Chloride (Dextrose 5%/0.45% Ns 1000 Ml) 1,000 mls @ 80 mls/hr IV .[id number] [place] Last Admin: 04/14/18 19:57 Dose: 80 mls/hr Metronidazole (Flagyl) 500 mg in 100 mls @ 100 mls/hr IVPB Q8H [place]; Protocol Last Admin: 04/14/18 14:34 Dose: 100 mls/hr Ceftriaxone Sodium 1 gm/ (Sodium Chloride) 100 mls @ 100 mls/hr IVPB DAILY [place]; Protocol Last Admin: 04/13/18 13:18 Dose: 100 mls/hr Metoclopramide HCl (Reglan) 5 mg IVP Q6H [place] Last Admin: 04/14/18 21:13 Dose: 5 mg Pantoprazole Sodium (Protonix Inj) 40 mg IVP Q12H [place] Last Admin: 04/14/18 21:13 Dose: 40 mg Pneumococcal Polyvalent Vaccine (Pneumovax 23 Vaccine) 0.5 ml IM .ONCE ONE Stop: 04/15/18 10:01 - Labs Labs: 04/14/18 07:33 04/12/18 01:09 PT 12.6 SECONDS (9.7-12.2) H 04/12/18 06:45 INR 1.2 04/12/18 06:45 APTT 27 SECONDS (21-34) 04/12/18 06:45
--- NOTE | 2018-04-15 01:02 | PN ---
DATE: 04/14/2018 SUBJECTIVE: The patient Rinaldi is mild shortness of breath. He has slight congestion. The patient had endotracheal intubation yesterday. The patient was seen by GI and the patient is for colonoscopy. The patient denies any fever, chills or rigors. His endoscopy did show a large hiatal hernia all the way up in the chest. PHYSICAL EXAMINATION: VITAL SIGNS: Blood pressure is 145/76, heart rate 57, respiratory rate 20, and temperature 97.3. LUNGS: Bilateral decreased air entry. CARDIOVASCULAR SYSTEM: S1 and S2 regular. ABDOMEN: Soft. ASSESSMENT: 1. Anemia, gastrointestinal bleed. 2. Hypertension. 3. Upper respiratory infection. PLAN: Continue current plan of care. Colonoscopy. Monitor patient. Kyle Woods MD
[2018-04-15] MEDS: Albuterol-Ipratrop 3 mg / 0.5 (3 ml) UD INH SCH ×4 (01:35→19:42)
[2018-04-15] MEDS: Dextrose 5%/0.45% NS 1,000 ML IV SCH (02:10)
[2018-04-15] MEDS: metroNIDAZOLE IV 500 mg/100 ml 500 MG/100 ML BAG IVPB SCH ×3 (06:34→22:54)
[2018-04-15 07:44] LABS: HEMOGLOBIN 11.8 g/dL (12.0-18.0); MEAN CELL VOLUME 88.9 fL (80.0-94.0); MEAN CORPUSCULAR HGB CONC 33.7 g/dL (33.0-37.0); MEAN PLATELET VOLUME 7.9 fL (7.2-11.7); RBC 3.93 Mil/uL (4.40-5.90); WHITE BLOOD COUNT 8.2 K/uL (4.8-10.8)
[2018-04-15 08:31] LABS: ALB/GLOB RATIO 1.2 (1.0-2.1); ALBUMIN 3.7 g/dL (3.5-5.0); ALT/SGPT 19 U/L (21-72); AST/SGOT 44 U/L (17-59); BLOOD UREA NITROGEN 16 mg/dL (9-20); CALCIUM 8.5 mg/dl (8.6-10.4); GFR NON-AFRICAN AMERICAN > 60
[2018-04-15] MEDS ORDERED: Pneumococcal 23-Valent Vaccine IM ONE (10:00)
[2018-04-15] MEDS ORDERED: Albuterol HFA 90 mcg/actuation (8 g) ONE ×2 (11:53→12:30)
[2018-04-15] MEDS ORDERED: Etomidate 20 mg/10ml Inj IV ONE (11:54)
[2018-04-15] MEDS ORDERED: Succinylcholine Chloride 20 mg/ml Syr (5 ml) IV ONE (11:55)
[2018-04-15] MEDS: guaiFENesin 600 mg ER Tab PO SCH ×2 (11:56→17:10)
[2018-04-15] MEDS ORDERED: Labetalol 25mg/5ml Syringe ONE ×2 (12:06→12:45)
[2018-04-15] MEDS ORDERED: Labetalol 5 mg/ml Inj 20ML IV PRN (12:23)
[2018-04-15] MEDS ORDERED: Albuterol-Ipratrop 3 mg / 0.5 (3 ml) UD ONE (12:39)
[2018-04-15] MEDS ORDERED: Albuterol-Ipratrop 3 mg / 0.5 (3 ml) UD INH STA (16:00)
--- NOTE | 2018-04-15 23:04 | CP.PCM.PN ---
Subjective - Date & Time of Evaluation Date of Evaluation: 04/15/18 Time of Evaluation: 23:04 - Subjective Subjective: dictated Objective - Vital Signs/Intake and Output Vital Signs (last 24 hours): Temp Pulse Resp BP Pulse Ox 97.1 F L 68 20 147/82 95 04/15/18 15:12 04/15/18 16:00 04/15/18 15:12 04/15/18 15:12 04/15/18 15:12 Intake and Output: 04/15/18 04/16/18 18:59 06:59 Intake Total 300 640 Balance 300 640 - Medications Medications: Current Medications Albuterol/Ipratropium (Duoneb 3 Mg/0.5 Mg (3 Ml) Ud) 3 ml INH RQ6 [place] Last Admin: 04/15/18 19:42 Dose: 3 ml Benzocaine/Menthol (Cepacol Sore Throat) 1 maulik MT Q6H PRN PRN Reason: Sore Throat Last Admin: 04/15/18 21:18 Dose: 1 maulik Guaifenesin (Mucinex [place]) 600 mg PO BID [place] Last Admin: 04/15/18 17:10 Dose: 600 mg Metronidazole (Flagyl) 500 mg in 100 mls @ 100 mls/hr IVPB Q8H [place]; Protocol Last Admin: 04/15/18 22:54 Dose: 100 mls/hr Ceftriaxone Sodium 1 gm/ (Sodium Chloride) 100 mls @ 100 mls/hr IVPB DAILY [place]; Protocol Last Admin: 04/15/18 07:22 Dose: Not Given Labetalol HCl (Trandate) 10 mg IV PRN PRN PRN Reason: Diastolic blood pressure Last Admin: 04/15/18 12:44 Dose: 5 mg Metoclopramide HCl (Reglan) 5 mg IVP Q6H [place] Last Admin: 04/15/18 21:18 Dose: 5 mg Pantoprazole Sodium (Protonix Inj) 40 mg IVP Q12H [place] Last Admin: 04/15/18 21:18 Dose: 40 mg - Labs Labs: 04/15/18 07:36 04/15/18 07:36 PT 12.6 SECONDS (9.7-12.2) H 04/12/18 06:45 INR 1.2 04/12/18 06:45 APTT 27 SECONDS (21-34) 04/12/18 06:45
[2018-04-16] MEDS: Albuterol-Ipratrop 3 mg / 0.5 (3 ml) UD INH SCH ×5 (01:29→20:03)
--- NOTE | 2018-04-16 02:52 | PN ---
DATE: 04/15/2018 SUBJECTIVE: Status post colonoscopy. Findings are noted. He is afebrile. No shortness of breath. No chest pain. No nausea, vomiting. PHYSICAL EXAMINATION: VITAL SIGNS: Blood pressure 147/82, pulse 67, respiratory rate 20, temperature 97.1. LUNGS: Clear. No rales. No rhonchi. CARDIOVASCULAR SYSTEM: S1 and S2, regular. No heave. No thrill. ABDOMEN: Soft, nontender. Bowel sounds are positive. ASSESSMENT: 1. Large hiatal hernia. 2. Hypokalemia. 3. Hypertension. 4. Status post small bowel obstruction, resolved. PLAN: Continue current medications. Status post colonoscopy. Monitor the patient. Kyle Woods MD
[2018-04-16] MEDS: metroNIDAZOLE IV 500 mg/100 ml 500 MG/100 ML BAG IVPB SCH ×3 (06:31→22:58)
[2018-04-16] MEDS: guaiFENesin 600 mg ER Tab PO SCH ×2 (09:27→18:09)
[2018-04-16 11:37] LABS: BLOOD UREA NITROGEN 12 mg/dL (9-20); CALCIUM 8.7 mg/dl (8.6-10.4); GFR NON-AFRICAN AMERICAN > 60
[2018-04-16] MEDS ORDERED: Potassium Chloride 20 mEq/15 ml LIQ UD PO ONE (14:20)
[2018-04-16] MEDS ORDERED: MethylPREDNISolone 40 mg Vial IVP ONE (14:21)
--- NOTE | 2018-04-16 15:22 | CP.PCM.PN ---
Subjective - Date & Time of Evaluation Date of Evaluation: 04/16/18 Time of Evaluation: 15:20 - Subjective Subjective: Patient looks good, standing at side of bed, speaking with friend. He is tolerating his liquid diet. He had small non-bloody BM. Objective - Vital Signs/Intake and Output Vital Signs (last 24 hours): Temp Pulse Resp BP Pulse Ox 97.3 F L 83 20 153/90 H 97 04/16/18 07:00 04/16/18 07:00 04/16/18 07:00 04/16/18 09:27 04/16/18 07:00 Intake and Output: 04/16/18 04/16/18 06:59 18:59 Intake Total 860 Output Total 800 Balance 60 - Medications Medications: Current Medications Albuterol/Ipratropium (Duoneb 3 Mg/0.5 Mg (3 Ml) Ud) 3 ml INH RQ6 [place] Last Admin: 04/16/18 13:30 Dose: 3 ml Benzocaine/Menthol (Cepacol Sore Throat) 1 maulik MT Q6H PRN PRN Reason: Sore Throat Last Admin: 04/15/18 21:18 Dose: 1 maulik Guaifenesin (Mucinex La) 600 mg PO BID [place] Last Admin: 04/16/18 09:27 Dose: 600 mg Metronidazole (Flagyl) 500 mg in 100 mls @ 100 mls/hr IVPB Q8H [place]; Protocol Last Admin: 04/16/18 06:31 Dose: 100 mls/hr Ceftriaxone Sodium 1 gm/ (Sodium Chloride) 100 mls @ 100 mls/hr IVPB DAILY [place]; Protocol Last Admin: 04/16/18 09:28 Dose: 100 mls/hr Labetalol HCl (Trandate) 10 mg IV PRN PRN PRN Reason: Diastolic blood pressure Last Admin: 04/15/18 12:44 Dose: 5 mg Methylprednisolone (Solu-Medrol) 20 mg IVP Q12 [place] Stop: 04/18/18 22:01 Metoclopramide HCl (Reglan) 5 mg IVP Q6H [place] Last Admin: 04/16/18 14:18 Dose: 5 mg Metoprolol Tartrate (Lopressor) 25 mg PO BID [place] Last Admin: 04/16/18 09:27 Dose: 25 mg Montelukast Sodium (Singulair) 10 mg PO HS [place] Pantoprazole Sodium (Protonix Inj) 40 mg IVP Q12H [facility] Last Admin: 04/16/18 09:29 Dose: 40 mg Potassium Chloride (Potassium Chloride Oral Soln) 20 meq PO DAILY [facility] Stop: 04/19/18 22:01 - Labs Labs: 04/15/18 07:36 04/16/18 11:05 PT 12.6 SECONDS (9.7-12.2) H 04/12/18 06:45 INR 1.2 04/12/18 06:45 APTT 27 SECONDS (21-34) 04/12/18 06:45 - Constitutional Appears: Non-toxic, No Acute Distress - Head Exam Head Exam: NORMAL INSPECTION, NORMOCEPHALIC - Eye Exam Eye Exam: EOMI, Normal appearance - ENT Exam ENT Exam: Mucous Membranes Moist, Normal Exam - Respiratory Exam Respiratory Exam: Clear to Ausculation Bilateral, NORMAL BREATHING PATTERN - Cardiovascular Exam Cardiovascular Exam: REGULAR RHYTHM, +S1, +S2 - GI/Abdominal Exam GI & Abdominal Exam: Soft, Normal Bowel Sounds. absent: Tenderness - Extremities Exam Extremities Exam: Full ROM, Normal Inspection - Neurological Exam Neurological Exam: Alert, Awake, Oriented x3 - Psychiatric Exam Psychiatric exam: Normal Affect, Normal Mood - Skin Skin Exam: Normal Color, Warm Assessment and Plan - Assessment and Plan (Free Text) Assessment: #Large hiatal hernia, likely type III, symptomatic #Vomiting, resolved #Esophagitis, gastritis, duodenitis PLAN: -Continue liquid diet, tolerating. -I advised to avoid meats or tough/chewy foods (spinach, muscles). Only liquids and soft food (applesauce, mashed potatotes, yogurt) -Symptomatic, type 3 hernia, may benefit from surgical evaluation. -Continue PPI daily for GERD management. Case discussed with Dr. Whyte, see attestation.
--- NOTE | 2018-04-16 20:40 | CP.PCM.PN ---
Subjective - Date & Time of Evaluation Date of Evaluation: 04/16/18 Time of Evaluation: 09:23 - Subjective Subjective: dictated Objective - Vital Signs/Intake and Output Vital Signs (last 24 hours): Temp Pulse Resp BP Pulse Ox 97.6 F 77 22 130/81 95 04/16/18 16:00 04/16/18 16:00 04/16/18 16:00 04/16/18 18:09 04/16/18 16:00 - Medications Medications: Current Medications Albuterol/Ipratropium (Duoneb 3 Mg/0.5 Mg (3 Ml) Ud) 3 ml INH RQ6 [place] Last Admin: 04/16/18 20:03 Dose: 3 ml Benzocaine/Menthol (Cepacol Sore Throat) 1 maulik MT Q6H PRN PRN Reason: Sore Throat Last Admin: 04/15/18 21:18 Dose: 1 maulik Guaifenesin (Mucinex La) 600 mg PO BID [facility] Last Admin: 04/16/18 18:09 Dose: 600 mg Metronidazole (Flagyl) 500 mg in 100 mls @ 100 mls/hr IVPB Q8H [facility]; Protocol Last Admin: 04/16/18 16:25 Dose: 100 mls/hr Ceftriaxone Sodium 1 gm/ (Sodium Chloride) 100 mls @ 100 mls/hr IVPB DAILY [facility]; Protocol Last Admin: 04/16/18 09:28 Dose: 100 mls/hr Labetalol HCl (Trandate) 10 mg IV PRN PRN PRN Reason: Diastolic blood pressure Last Admin: 04/15/18 12:44 Dose: 5 mg Methylprednisolone (Solu-Medrol) 20 mg IVP Q12 [place] Stop: 04/18/18 22:01 Metoclopramide HCl (Reglan) 5 mg IVP Q6H [facility] Last Admin: 04/16/18 14:18 Dose: 5 mg Metoprolol Tartrate (Lopressor) 25 mg PO BID [facility] Last Admin: 04/16/18 18:09 Dose: 25 mg Montelukast Sodium (Singulair) 10 mg PO HS [facility] Pantoprazole Sodium (Protonix Inj) 40 mg IVP DAILY [facility] Potassium Chloride (Potassium Chloride Oral Soln) 20 meq PO DAILY [facility] Stop: 04/19/18 22:01 - Labs Labs: 04/15/18 07:36 04/16/18 11:05 PT 12.6 SECONDS (9.7-12.2) H 04/12/18 06:45 INR 1.2 04/12/18 06:45 APTT 27 SECONDS (21-34) 04/12/18 06:45
[2018-04-16] MEDS: Potassium Chloride 20 mEq/15 ml LIQ UD PO SCH (21:09)
[2018-04-16] MEDS: MethylPREDNISolone 40 mg Vial IVP SCH (21:09)
[2018-04-17] MEDS: Albuterol-Ipratrop 3 mg / 0.5 (3 ml) UD INH SCH ×3 (01:38→13:30)
--- NOTE | 2018-04-17 01:59 | PN ---
DATE: 04/16/2018 SUBJECTIVE: The patient is for repeat colonoscopy and endoscopy. He is feeling better. He is not short of breath. He denies any nausea or vomiting. PHYSICAL EXAMINATION: VITAL SIGNS: Blood pressure 130/81, pulse 77, respiratory rate 22, and temperature 97.6. LUNGS: Clear. Decreased air entry. CARDIOVASCULAR SYSTEM: S1 and S2 are regular. ABDOMEN: Soft. ASSESSMENT: 1. Hypokalemia, potassium chloride supplementation. 2. Large hiatal hernia where the most of the portion of stomach is in the chest. 3. Anemia. 4. Hypertension. PLAN: Medical management. Colonoscopy, endoscopy, and then possible discharge. Kyle Woods MD
[2018-04-17] MEDS: metroNIDAZOLE IV 500 mg/100 ml 500 MG/100 ML BAG IVPB SCH ×2 (06:40→15:30)
[2018-04-17 08:00] VITALS: PULSE 64; RESP 18; TEMP 97.6; O2SAT 99
[2018-04-17 08:21] LABS: BLOOD UREA NITROGEN 13 mg/dL (9-20); CALCIUM 9.1 mg/dl (8.6-10.4); GFR NON-AFRICAN AMERICAN > 60
[2018-04-17] MEDS: Potassium Chloride 20 mEq/15 ml LIQ UD PO SCH (08:59)
[2018-04-17] MEDS: guaiFENesin 600 mg ER Tab PO SCH ×2 (08:59→17:43)
[2018-04-17] MEDS: MethylPREDNISolone 40 mg Vial IVP SCH (09:00)
--- NOTE | 2018-04-17 17:16 | CP.PCM.PN ---
Objective - Vital Signs/Intake and Output Vital Signs (last 24 hours): Temp Pulse Resp BP Pulse Ox 97.6 F 64 18 130/80 99 04/17/18 07:00 04/17/18 07:00 04/17/18 07:00 04/17/18 09:00 04/17/18 07:00 Intake and Output: 04/17/18 04/17/18 06:59 18:59 Intake Total 340 500 Balance 340 500 - Medications Medications: Current Medications Albuterol/Ipratropium (Duoneb 3 Mg/0.5 Mg (3 Ml) Ud) 3 ml INH RQ6 [place] Last Admin: 04/17/18 13:30 Dose: 3 ml Benzocaine/Menthol (Cepacol Sore Throat) 1 maulik MT Q6H PRN PRN Reason: Sore Throat Last Admin: 04/15/18 21:18 Dose: 1 maulik Guaifenesin (Mucinex La) 600 mg PO BID [facility] Last Admin: 04/17/18 08:59 Dose: 600 mg Metronidazole (Flagyl) 500 mg in 100 mls @ 100 mls/hr IVPB Q8H [facility]; Protocol Last Admin: 04/17/18 06:40 Dose: 100 mls/hr Ceftriaxone Sodium 1 gm/ (Sodium Chloride) 100 mls @ 100 mls/hr IVPB DAILY [facility]; Protocol Last Admin: 04/17/18 09:12 Dose: 100 mls/hr Labetalol HCl (Trandate) 10 mg IV PRN PRN PRN Reason: Diastolic blood pressure Last Admin: 04/15/18 12:44 Dose: 5 mg Methylprednisolone (Solu-Medrol) 20 mg IVP Q12 [place] Stop: 04/18/18 22:01 Last Admin: 04/17/18 09:00 Dose: 20 mg Metoclopramide HCl (Reglan) 5 mg IVP Q6H [facility] Last Admin: 04/17/18 14:16 Dose: 5 mg Metoprolol Tartrate (Lopressor) 25 mg PO BID [facility] Last Admin: 04/17/18 09:00 Dose: 25 mg Montelukast Sodium (Singulair) 10 mg PO HS [facility] Last Admin: 04/16/18 21:10 Dose: 10 mg Pantoprazole Sodium (Protonix Inj) 40 mg IVP DAILY [facility] Last Admin: 04/17/18 09:08 Dose: 40 mg Potassium Chloride (Potassium Chloride Oral Soln) 20 meq PO DAILY [place] Stop: 04/19/18 22:01 Last Admin: 04/17/18 08:59 Dose: 20 meq - Labs Labs: 04/15/18 07:36 04/17/18 07:16 PT 12.6 SECONDS (9.7-12.2) H 04/12/18 06:45 INR 1.2 04/12/18 06:45 APTT 27 SECONDS (21-34) 04/12/18 06:45 Assessment and Plan - Assessment and Plan (Free Text) Assessment: 87 YEAR old male admitted with upper GI bleed, s/p EGD large hiatus hernia, seen and examined. Tolerated soft diet, cleared by DR Whyte, discussed with DR Woods , plan to discharge home today. Advised to continue with liquid and soft diet only. Advised to follow up with PMD in 1 week.
[2018-04-17 17:44] VITALS: BP 126/70
--- NOTE | 2018-04-17 19:02 | CP.PCM.PN ---
Subjective - Date & Time of Evaluation Date of Evaluation: 04/17/18 Time of Evaluation: 19:40 - Subjective Subjective: dictated Objective - Vital Signs/Intake and Output Vital Signs (last 24 hours): Temp Pulse Resp BP Pulse Ox 97.6 F 64 18 126/70 99 04/17/18 07:00 04/17/18 07:00 04/17/18 07:00 04/17/18 17:43 04/17/18 07:00 Intake and Output: 04/17/18 04/18/18 18:59 06:59 Intake Total 500 Balance 500 - Medications Medications: Current Medications Albuterol/Ipratropium (Duoneb 3 Mg/0.5 Mg (3 Ml) Ud) 3 ml INH RQ6 [place] Last Admin: 04/17/18 13:30 Dose: 3 ml Benzocaine/Menthol (Cepacol Sore Throat) 1 maulik MT Q6H PRN PRN Reason: Sore Throat Last Admin: 04/15/18 21:18 Dose: 1 maulik Guaifenesin (Mucinex La) 600 mg PO BID [facility] Last Admin: 04/17/18 17:43 Dose: 600 mg Metronidazole (Flagyl) 500 mg in 100 mls @ 100 mls/hr IVPB Q8H [place]; Protocol Last Admin: 04/17/18 15:30 Dose: Not Given Ceftriaxone Sodium 1 gm/ (Sodium Chloride) 100 mls @ 100 mls/hr IVPB DAILY [place]; Protocol Last Admin: 04/17/18 09:12 Dose: 100 mls/hr Labetalol HCl (Trandate) 10 mg IV PRN PRN PRN Reason: Diastolic blood pressure Last Admin: 04/15/18 12:44 Dose: 5 mg Methylprednisolone (Solu-Medrol) 20 mg IVP Q12 [place] Stop: 04/18/18 22:01 Last Admin: 04/17/18 09:00 Dose: 20 mg Metoclopramide HCl (Reglan) 5 mg IVP Q6H [place] Last Admin: 04/17/18 14:16 Dose: 5 mg Metoprolol Tartrate (Lopressor) 25 mg PO BID [place] Last Admin: 04/17/18 17:43 Dose: 25 mg Montelukast Sodium (Singulair) 10 mg PO HS [facility] Last Admin: 04/16/18 21:10 Dose: 10 mg Pantoprazole Sodium (Protonix Inj) 40 mg IVP DAILY [facility] Last Admin: 04/17/18 09:08 Dose: 40 mg Potassium Chloride (Potassium Chloride Oral Soln) 20 meq PO DAILY [place] Stop: 04/19/18 22:01 Last Admin: 04/17/18 08:59 Dose: 20 meq - Labs Labs: 04/15/18 07:36 04/17/18 07:16 PT 12.6 SECONDS (9.7-12.2) H 04/12/18 06:45 INR 1.2 04/12/18 06:45 APTT 27 SECONDS (21-34) 04/12/18 06:45
--- NOTE | 2018-04-18 04:07 | DS ---
DISCHARGE DIAGNOSES: 1. Abdominal pain, gastritis. 2. Anemia due to gastrointestinal blood loss. 3. Hypokalemia. HOSPITAL COURSE: This is an 87-year-old white male with a history of COPD. He came in because of abdominal pain, nausea, and vomiting. Initially, there was a situation of small bowel obstruction. Later on, the patient improved, and the patient was started on Protonix, IV fluids, and the patient underwent an EGD and a colonoscopy. CT of the abdomen showed a large hiatal hernia extending into the chest. The patient had bowel loops with fluid levels, and the patient had diverticulosis and cholelithiasis. The patient was admitted to the floor, and then, the patient underwent EGD and colonoscopy. The patient improved, and he was being discharged with outpatient followup. Condition upon discharge, stable. PHYSICAL EXAMINATION: VITAL SIGNS: Blood pressure 134/80, pulse 64, respiratory rate 18, and temperature 97.6. LUNGS: Decreased air entry. CARDIOVASCULAR SYSTEM: S1, S2, regular. ABDOMEN: Soft, nontender. Bowel sounds are positive. LABORATORY DATA: The patient's WBC 8.2, hemoglobin 11.8, hematocrit 35, and platelets 307. Sodium 136, potassium 4.2, chloride 99, bicarb 31, BUN 13, and creatinine 0.8. CONDITION UPON DISCHARGE: Stable. Kyle Woods MD
== END 2018-04-17 19:52 | disposition home or self-care (01) | DRG 378 ==
LOC: C.ER 00:31 → C.9E 05:16 → C.6T 06:50
PROVIDERS: ADMIT Internal Medicine; ATTEND Internal Medicine
PROC: 0DJ08ZZ Inspection of Upper Intestinal Tract, Via Natural or Artificial Opening Endoscopic (ICD-10-PCS; 2018-04-13)
PROC: 0DJ08ZZ Inspection of Upper Intestinal Tract, Via Natural or Artificial Opening Endoscopic (ICD-10-PCS; 2018-04-14)
PROC: 0DC68ZZ Extirpation of Matter from Stomach, Via Natural or Artificial Opening Endoscopic (ICD-10-PCS; principal; 2018-04-15 11:52)
DX: K92.2 Gastrointestinal hemorrhage, unspecified (principal); D62 Acute posthemorrhagic anemia; D68.9 Coagulation defect, unspecified; J98.11 Atelectasis; E87.3 Alkalosis; K44.0 Diaphragmatic hernia with obstruction, without gangrene; K31.89 Other diseases of stomach and duodenum; E87.6 Hypokalemia; E86.0 Dehydration; I10 Essential (primary) hypertension; Z95.5 Presence of coronary angioplasty implant and graft; K21.0 Gastro-esophageal reflux disease with esophagitis; I25.10 Atherosclerotic heart disease of native coronary artery without angina pectoris; J45.909 Unspecified asthma, uncomplicated; J06.9 Acute upper respiratory infection, unspecified

== ENCOUNTER 2018-04-18 02:23 | Inpatient (IN) | payer MEDICARE, OTHER ==
[2018-04-18] MEDS ORDERED: Albuterol-Ipratrop 3 mg / 0.5 (3 ml) UD ONE ×2 (02:38→12:55)
[2018-04-18] MEDS ORDERED: Albuterol 0.083% Inhal Sol (2.5 mg/3 mL) UD INH STA (03:21)
[2018-04-18] MEDS ORDERED: Albuterol-Ipratrop 3 mg / 0.5 (3 ml) UD IH STA (03:21)
[2018-04-18 03:33] LABS: BASO % 0.2 % (0.0-2.0); HEMOGLOBIN 12.8 g/dL (12.0-18.0); LYMPH # 0.9 K/uL (1.0-4.3); LYMPH % 6.7 % (20.0-40.0); MEAN CELL VOLUME 88.5 fL (80.0-94.0); MEAN CORPUSCULAR HEMOGLOBIN 29.9 pg (27.0-31.0); MEAN CORPUSCULAR HGB CONC 33.8 g/dL (33.0-37.0); MEAN PLATELET VOLUME 8.1 fL (7.2-11.7); MONO % 7.9 % (0.0-10.0); NEUT # 10.9 K/uL (1.8-7.0); NEUT % 85.2 % (50.0-75.0); PLATELET COUNT 418 K/uL (130-400); RBC 4.27 Mil/uL (4.40-5.90); RED CELL DISTRIBUTION WIDTH 14.7 % (11.5-14.5); WHITE BLOOD COUNT 12.8 K/uL (4.8-10.8)
[2018-04-18 03:38] LABS: INR 1.2
[2018-04-18 04:01] LABS: ALB/GLOB RATIO 1.4 (1.0-2.1); ALBUMIN 4.1 g/dL (3.5-5.0); ALT/SGPT 26 U/L (21-72); AST/SGOT 30 U/L (17-59); BLOOD UREA NITROGEN 18 mg/dL (9-20); CALCIUM 9.2 mg/dl (8.6-10.4); GFR NON-AFRICAN AMERICAN > 60
[2018-04-18 04:04] LABS: LYMPHOCYTE 7 % (20-40); MONOCYTE 8 % (0-10); NEUTROPHIL 85 % (50-75); PLATELET ESTIMATE NORMAL (NORMAL); TOTAL CELLS COUNTED 100
[2018-04-18] MEDS ORDERED: Albuterol 0.083% Inhal Sol (2.5 mg/3 mL) UD IH STA (05:55)
[2018-04-18] MEDS ORDERED: Magnesium Sulfate 1 gm in D5W 1 GM/100 ML BAG IV STA (05:55)
--- NOTE | 2018-04-18 06:03 | C.PDOC ---
History Of Present Illness 87 year old male discharged yesterday after being admitted for 5 days for upper GI bleed presents today with wheezing and SOB that began today. Denies chest pain, nausea, vomiting, or fever. Chief Complaint (Nursing): Shortness Of Breath History Per: Patient History/Exam Limitations: no limitations Onset/Duration Of Symptoms: Hrs Current Symptoms Are (Timing): Still Present Current Respiratory Medications: See Home Med List Associated Symptoms: Other (SOB, Wheezing. No nausea or vomiting.). denies: Fever, Chest Pain Recent travel outside of the [place]: No Past Medical History Reviewed: Historical Data, Nursing Documentation, Vital Signs Vital Signs: Last Vital Signs Temp 97.6 F 04/18/18 02:40 Pulse 86 04/18/18 03:01 Resp 20 04/18/18 03:01 BP 156/93 H 04/18/18 03:01 Pulse Ox 96 04/18/18 03:01 - Medical History PMH: Asthma, HTN Surgical History: Coronary Stent Family History: States: Unknown Family Hx - Social History Hx Alcohol Use: No Hx Substance Use: No - Immunization History Hx Tetanus Toxoid Vaccination: No Hx Influenza Vaccination: Yes Hx Pneumococcal Vaccination: No Review Of Systems Constitutional: Negative for: Fever, Chills Cardiovascular: Negative for: Chest Pain, Palpitations Respiratory: Positive for: Shortness of Breath, Wheezing Gastrointestinal: Negative for: Nausea, Vomiting Neurological: Negative for: Weakness, Numbness Physical Exam - Physical Exam Appears: Non-toxic Skin: Normal Color, Warm, Dry Head: Atraumatic, Normacephalic Eye(s): bilateral: Normal Inspection Oral Mucosa: Moist Neck: Normal, Supple Chest: Symmetrical, No Tenderness Cardiovascular: Rhythm Regular Respiratory: No Rales, No Rhonchi, Wheezing Gastrointestinal/Abdominal: Soft, No Tenderness Neurological/Psych: Oriented x3, Normal Speech ED Course And Treatment - Laboratory Results Result Diagrams: 04/18/18 03:29 04/18/18 03:29 Lab Results: PT 13.0 SECONDS (9.7-12.2) H 04/18/18 03:29 INR 1.2 04/18/18 03:29 APTT 33 SECONDS (21-34) 04/18/18 03:29 Total Bilirubin 0.4 mg/dL (0.2-1.3) 04/18/18 03:29 AST 30 U/L (17-59) 04/18/18 03:29 ALT 26 U/L (21-72) 04/18/18 03:29 Alkaline Phosphatase 89 U/L (38-126) 04/18/18 03:29 Total Protein 7.0 g/dL (6.3-8.3) 04/18/18 03:29 Albumin 4.1 g/dL (3.5-5.0) 04/18/18 03:29 Globulin 2.9 gm/dL (2.2-3.9) 04/18/18 03:29 Albumin/Globulin Ratio 1.4 (1.0-2.1) 04/18/18 03:29 ECG: Interpreted By Me, Viewed By Me ECG Rhythm: Sinus Rhythm ECG Interpretation: Normal Interpretation Of ECG: PVCs right axis deviation Rate From EC O2 Sat by Pulse Oximetry: 96 (Room air) Pulse Ox Interpretation: Normal Progress Note: Patient given albuterol, duoneb, and solumedrol, however, patient still wheezing. Discussed with Dr. Ramires who will accept patient to telemetry. Disposition - Disposition Disposition: HOSPITALIZED Disposition Time: 06:02 Condition: FAIR - Clinical Impression Clinical Impression: COPD exacerbation, Chronic congestive heart failure - PA / CERTIFIED OPTICIAN / Resident Statement MD/DO has reviewed & agrees with the documentation as recorded. - Scribe Statement The provider has reviewed the documentation as recorded by the Scribabe Kiser All medical record entries made by the Scribe were at my direction and personally dictated by me. I have reviewed the chart and agree that the record accurately reflects my personal performance of the history, physical exam, medical decision making, and the department course for this patient. I have also personally directed, reviewed, and agree with the discharge instructions and disposition. Decision To Admit - Pt Status Changed To: Hospital Disposition Of: Observation - . Bed Request Type: Telemetry Admitting Physician: Comfort Ramires Patient Diagnosis: COPD exacerbation, Chronic congestive heart failure
[2018-04-18] MEDS ORDERED: Magnesium Sulfate 1 gm in D5W 1 GM/100 ML BAG IVPB ONE (07:04)
[2018-04-18] MEDS: Albuterol-Ipratrop 3 mg / 0.5 (3 ml) UD INH SCH (12:50)
--- NOTE | 2018-04-18 13:30 | CP.PCM.HP ---
History of Present Illness - History of Present Illness History of Present Illness: pt came in to ed for sob cough hemoptysis and vomited coffe ground blood Present on Admission - Present on Admission Any Indicators Present on Admission: No Review of Systems - Review of Systems Systems not reviewed;Unavailable: Acuity of Condition - Constitutional Constitutional: Fatigue - EENT Eyes: As Per HPI Ears: As Per HPI Nose/Mouth/Throat: As Per HPI - Cardiovascular Cardiovascular: Chest Pain, Diaphoresis, Dyspnea, Dyspnea on Exertion - Respiratory Respiratory: Cough, Dyspnea, Hemoptysis, Dyspnea on Exertion, Wheezing, Chest Congestion, Pain with Coughing - Gastrointestinal Gastrointestinal: As Per HPI, Hematemesis - Genitourinary Genitourinary: As Per HPI - Reproductive: Male Reproductive:Male: As Per HPI - Musculoskeletal Musculoskeletal: As Per HPI - Integumentary Integumentary: As Per HPI - Neurological Neurological: As Per HPI - Psychiatric Psychiatric: As Per HPI - Endocrine Endocrine: As Per HPI - Hematologic/Lymphatic Hematologic: As Per HPI Past Patient History - Infectious Disease Hx of Infectious Diseases: None - Past Medical History & Family History Past Medical History?: Yes - Past Social History Smoking Status: Never Smoked - CARDIAC Hx Hypertension: Yes - PULMONARY Hx Asthma: Yes - NEUROLOGICAL Hx Neurological Disorder: No - HEENT Hx HEENT Problems: No - MUSCULOSKELETAL/RHEUMATOLOGICAL Hx Falls: No - GASTROINTESTINAL Hx Constipation: Yes - PSYCHIATRIC Hx Substance Use: No - SURGICAL HISTORY Hx Coronary Stent: Yes - ANESTHESIA Hx Anesthesia: Yes Hx Anesthesia Reactions: No Meds Allergies/Adverse Reactions: Allergies Allergy/AdvReac Type Severity Reaction Status Date / Time No Known Allergies Allergy Unverified 04/18/18 02:43 Physical Exam - Constitutional Appears: In Acute Distress - Head Exam Head Exam: ATRAUMATIC - Eye Exam Eye Exam: Normal appearance Pupil Exam: PERRL - ENT Exam ENT Exam: Mucous Membranes Moist - Neck Exam Neck exam: Positive for: Normal Inspection - Respiratory Exam Respiratory Exam: Decreased Breath Sounds, Rales, Wheezes - Cardiovascular Exam Cardiovascular Exam: Tachycardia - GI/Abdominal Exam GI & Abdominal Exam: Normal Bowel Sounds - Extremities Exam Extremities exam: Positive for: normal inspection - Back Exam Back exam: NORMAL INSPECTION - Neurological Exam Neurological exam: Oriented x3 - Psychiatric Exam Psychiatric exam: Normal Affect - Skin Skin Exam: Normal Color Results - Vital Signs Recent Vital Signs: Last Vital Signs Temp 98.1 F 04/18/18 10:30 Pulse 83 04/18/18 13:06 Resp 20 04/18/18 13:06 BP 137/78 04/18/18 13:06 Pulse Ox 95 04/18/18 13:06 - Labs Result Diagrams: 04/18/18 03:29 04/18/18 03:29 Labs: Laboratory Results - last 24 hr 04/18/18 04/18/18 04/18/18 03:29 03:29 03:29 WBC 12.8 H D RBC 4.27 L Hgb 12.8 Hct 37.7 MCV 88.5 MCH 29.9 MCHC 33.8 RDW 14.7 H Plt Count 418 H D MPV 8.1 Neut % (Auto) 85.2 H Lymph % (Auto) 6.7 L [place] % (Auto) 7.9 Eos % (Auto) 0.0 Baso % (Auto) 0.2 Neut # (Auto) 10.9 H Lymph # (Auto) 0.9 L [place] # (Auto) 1.0 H Eos # (Auto) 0.0 Baso # (Auto) 0.0 Neutrophils % (Manual) 85 H Lymphocytes % (Manual) 7 L Monocytes % (Manual) 8 Platelet Estimate Normal PT 13.0 H INR 1.2 APTT 33 Sodium 135 Potassium 3.9 Chloride 94 L Carbon Dioxide 31 H Anion Gap 14 BUN 18 Creatinine 0.9 Est GFR ( Amer) > 60 Est GFR (Non-Af Amer) > 60 Random Glucose 124 H Calcium 9.2 Total Bilirubin 0.4 AST 30 ALT 26 Alkaline Phosphatase 89 Total Protein 7.0 Albumin 4.1 Globulin 2.9 Albumin/Globulin Ratio 1.4 Assessment & Plan - Assessment and Plan (Free Text) Assessment: ac bronchitis ac exa copd hemoptisis vomiting blood Plan: admit possible icu - Date & Time Date: 04/18/18 Time: 13:33
[2018-04-18 13:48] LABS: ABG ALLEN TEST POS; ARTERIAL BLOOD GAS HCO3 35.1 mmol/L (21-28); ARTERIAL BLOOD GAS O2 SAT 99.5 % (95-98); ARTERIAL BLOOD GAS PCO2 35 mm/Hg (35-45); ARTERIAL BLOOD GAS PH 7.61 (7.35-7.45); ARTERIAL BLOOD GAS PO2 104 mm/Hg (80-100); ARTERIAL BLOOD GAS TCO2 36.3 mmol/L (22-28)
[2018-04-18 14:21] LABS: HEMOGLOBIN 12.4 g/dL (12.0-18.0); LYMPH # 0.4 K/uL (1.0-4.3); LYMPH % 1.9 % (20.0-40.0); MEAN CELL VOLUME 88.3 fL (80.0-94.0); MEAN CORPUSCULAR HEMOGLOBIN 30.4 pg (27.0-31.0); MEAN CORPUSCULAR HGB CONC 34.4 g/dL (33.0-37.0); MEAN PLATELET VOLUME 7.7 fL (7.2-11.7); MONO # 0.6 K/uL (0.0-0.8); MONO % 2.8 % (0.0-10.0); NEUT # 19.8 K/uL (1.8-7.0); NEUT % 95.3 % (50.0-75.0); PLATELET COUNT 386 K/uL (130-400); RBC 4.09 Mil/uL (4.40-5.90); RED CELL DISTRIBUTION WIDTH 14.7 % (11.5-14.5)
[2018-04-18] MEDS ORDERED: Dextrose 5%/0.9% NS 1,000 ML IV ONE (14:21)
[2018-04-18 14:23] LABS: WHITE BLOOD COUNT 20.8 K/uL (4.8-10.8)
[2018-04-18 14:36] LABS: ALB/GLOB RATIO 1.4 (1.0-2.1); ALBUMIN 3.8 g/dL (3.5-5.0); ALT/SGPT 27 U/L (21-72); AST/SGOT 29 U/L (17-59); BLOOD UREA NITROGEN 21 mg/dL (9-20); CALCIUM 8.8 mg/dl (8.6-10.4); GFR NON-AFRICAN AMERICAN > 60
[2018-04-18] MEDS: Dextrose 5%/0.9% NS 1,000 ML IV SCH (14:44)
[2018-04-18 15:13] LABS: LYMPHOCYTE 2 % (20-40); MONOCYTE 3 % (0-10); NEUTROPHIL 95 % (50-75); TOTAL CELLS COUNTED 100
[2018-04-18 15:14] LABS: ANISOCYTOSIS SLIGHT; OVALOCYTES SLIGHT; PLATELET ESTIMATE NORMAL (NORMAL)
--- NOTE | 2018-04-18 17:12 | RAD ---
Date of service: 04/18/2018 HISTORY: SOB COMPARISON: Comparison chest 04/13/2018 comparison also made with chest CT scan abdomen pelvis 04/12/2018 which imaged both lung bases. FINDINGS: LUNGS: No active pulmonary disease. PLEURA: No significant pleural effusion identified, no pneumothorax apparent. CARDIOVASCULAR: Mild moderate aortic atherosclerotic calcification present. Large cardiac silhouette however this is likely due to a very large hiatal hernia which is seen to better advantage on prior CT scan of the abdomen and pelvis. Suspect minor left basilar atelectasis. OSSEOUS STRUCTURES: No significant abnormalities. VISUALIZED UPPER ABDOMEN: Normal. OTHER FINDINGS: None. IMPRESSION: Large hiatal hernia. Suspect mild left basilar atelectasis.
[2018-04-18] MEDS: Bisacodyl 5mg EC Tab PO SCH (18:05)
[2018-04-19] MEDS: Albuterol-Ipratrop 3 mg / 0.5 (3 ml) UD INH SCH ×6 (00:56→19:00)
[2018-04-19 07:56] LABS: HEMOGLOBIN 10.8 g/dL (12.0-18.0); MEAN CELL VOLUME 89.3 fL (80.0-94.0); MEAN CORPUSCULAR HEMOGLOBIN 28.5 pg (27.0-31.0); MEAN CORPUSCULAR HGB CONC 31.9 g/dL (33.0-37.0); MEAN PLATELET VOLUME 7.8 fL (7.2-11.7); RBC 3.8 Mil/uL (4.40-5.90); RED CELL DISTRIBUTION WIDTH 15.1 % (11.5-14.5); WHITE BLOOD COUNT 11.8 K/uL (4.8-10.8)
--- NOTE | 2018-04-19 08:17 | PN ---
DATE: 04/19/2018 LOCATION: 657, bed A. SUBJECTIVE: This is an 87-year-old male, seen again initially for GI consultation in the ER on due to recurrent episodes of nausea and vomiting of coffee-ground material with some shortness of breath, reexamined again today without reported active bleeding this morning with intermittent period of shortness of breath and mild chest discomfort and no palpitation and no chills or fever. The entire chart is reviewed including but not limited to the most recent lab and radiology study results and today's lab results showed blood glucose level of 122. Rest of the lab is still pending, but reported to have leukocytosis of 20.8 which could be secondary to also acute bronchitis, possible early aspiration pneumonia and/or steroid induced. PHYSICAL EXAMINATION: GENERAL: An 87-year-old male, awake, alert and oriented. VITAL SIGNS: Afebrile with pulse of 66, respiratory rate 20 to 22, blood pressure 136/64. HEENT: Showed pale dry oral mucoid membrane mildly, nonicteric sclerae. LUNGS: Few scattered crepitation with decreased air entry at bases. HEART: Positive S1 and S2. ABDOMEN: Soft with slight distention. No mass or organomegaly. No rebound tenderness or guarding. EXTREMITIES: Without significant edema, clubbing or cyanosis. NEUROLOGIC: No reported new neurological deficits, sensory or motor. IMPRESSION: 1. Recurrent hematemesis. 2. Peptic ulcer disease with large hiatus hernia diagnosed endoscopically very recently with retained foreign body, food in the gastric cavity, removed endoscopically. 3. Known history of hypertension, bronchial asthma, coronary artery disease, status post cardiac stent insertion. 4. The possibility of aspiration pneumonia with re-exacerbation of his chronic obstructive pulmonary disease was raised. SUGGESTIONS: 1. Agree with your plan. 2. IV antibiotics for the following 3 to 5 days. 3. The patient may repeat upper endoscopy if there is recurrent episode of nausea and vomiting. 4. Keep n.p.o. for now except oral medication. 5. Further recommendation to follow. Johann Guerra MD
[2018-04-19] MEDS: metroNIDAZOLE IV 500 mg/100 ml 500 MG/100 ML BAG IVPB SCH ×3 (08:37→22:32)
[2018-04-19] MEDS: Bisacodyl 5mg EC Tab PO SCH (09:57)
[2018-04-19] MEDS: MethylPREDNISolone 40 mg Vial IVP SCH (10:04)
--- NOTE | 2018-04-19 10:17 | CP.PCM.PN ---
Subjective - Date & Time of Evaluation Date of Evaluation: 04/19/18 Time of Evaluation: 10:15 - Subjective Subjective: pt has difficulty breathing had nonsustained vt in moniter Objective - Vital Signs/Intake and Output Vital Signs (last 24 hours): Temp Pulse Resp BP Pulse Ox 98.0 F 75 18 135/83 96 04/19/18 07:00 04/19/18 07:00 04/19/18 07:00 04/19/18 09:57 04/19/18 07:00 Intake and Output: 04/19/18 04/19/18 06:59 18:59 Intake Total 450 Output Total 450 Balance 0 - Medications Medications: Current Medications Albuterol/Ipratropium (Duoneb 3 Mg/0.5 Mg (3 Ml) Ud) 3 ml INH RQ4 [place] Last Admin: 04/19/18 07:38 Dose: 3 ml Bisacodyl (Dulcolax) 10 mg PO DAILY [facility] Last Admin: 04/19/18 09:57 Dose: 10 mg Dextrose/Sodium Chloride (Dextrose 5%/0.9% Ns 1000 Ml) 1,000 mls @ 50 mls/hr IV .Q20H [place] Last Admin: 04/18/18 14:44 Dose: 50 mls/hr Metronidazole (Flagyl) 500 mg in 100 mls @ 100 mls/hr IVPB Q8H [facility]; Protocol Last Admin: 04/19/18 08:37 Dose: 100 mls/hr Ceftriaxone Sodium 1 gm/ (Sodium Chloride) 100 mls @ 100 mls/hr IVPB DAILY [facility]; Protocol Last Admin: 04/19/18 10:01 Dose: 100 mls/hr Methylprednisolone (Solu-Medrol) 40 mg IVP DAILY [facility] Last Admin: 04/19/18 10:04 Dose: 40 mg Metoclopramide HCl (Reglan) 5 mg IVPB Q6H [place] Last Admin: 04/19/18 08:32 Dose: 5 mg Metoprolol Tartrate (Lopressor) 25 mg PO BID [place] Last Admin: 04/19/18 09:57 Dose: 25 mg Montelukast Sodium (Singulair) 10 mg PO HS [facility] Last Admin: 04/18/18 21:41 Dose: 10 mg Pantoprazole Sodium (Protonix Inj) 40 mg IVP Q12H [place] Last Admin: 04/19/18 03:05 Dose: 40 mg - Labs Labs: 04/19/18 07:46 04/18/18 14:18 PT 13.0 SECONDS (9.7-12.2) H 04/18/18 03:29 INR 1.2 04/18/18 03:29 APTT 33 SECONDS (21-34) 04/18/18 03:29 - Constitutional Appears: In Acute Distress - Head Exam Head Exam: ATRAUMATIC - Eye Exam Eye Exam: Normal appearance Pupil Exam: NORMAL ACCOMODATION - ENT Exam ENT Exam: Mucous Membranes Moist - Neck Exam Neck Exam: Full ROM - Respiratory Exam Respiratory Exam: Accessory Muscle Use, Decreased Breath Sounds, Prolonged Expiratory Phase, Rales - Cardiovascular Exam Cardiovascular Exam: REGULAR RHYTHM Additional comments: vt - GI/Abdominal Exam GI & Abdominal Exam: Normal Bowel Sounds - Extremities Exam Extremities Exam: Normal Capillary Refill - Back Exam Back Exam: NORMAL INSPECTION - Neurological Exam Neurological Exam: Awake, Oriented x3 - Psychiatric Exam Psychiatric exam: Normal Affect - Skin Skin Exam: Pallor Assessment and Plan - Assessment and Plan (Free Text) Assessment: copd exacerbation aneamia s/p vomiting blood s/p hemoptysis Plan: cont med cardiology and pulmonary cons
[2018-04-19 12:53] LABS: INR 1.1; PROTHROMBIN TIME 12.3 SECONDS (9.7-12.2)
--- NOTE | 2018-04-19 13:04 | CP.PCM.CON ---
History of Present Illness - History of Present Illness History of Present Illness: 87 y/o male with Hx of COPD is admitted with GI bleed, dyspnea and wheezing. Patient is awake and alert and reports intermittent dyspnea, cough, chest tightness and wheezing. Pt denies fever and chills. Review of Systems - Review of Systems All systems: reviewed and no additional remarkable complaints except (mentioned in HPI) Past Patient History - Infectious Disease Hx of Infectious Diseases: None - Past Medical History & Family History Past Medical History?: Yes - Past Social History Smoking Status: Never Smoked - CARDIAC Hx Hypertension: Yes - PULMONARY Hx Asthma: Yes - NEUROLOGICAL Hx Neurological Disorder: No - HEENT Hx HEENT Problems: No - MUSCULOSKELETAL/RHEUMATOLOGICAL Hx Falls: No - GASTROINTESTINAL Hx Constipation: Yes - PSYCHIATRIC Hx Substance Use: No - SURGICAL HISTORY Hx Coronary Stent: Yes - ANESTHESIA Hx Anesthesia: Yes Hx Anesthesia Reactions: No Meds Allergies/Adverse Reactions: Allergies Allergy/AdvReac Type Severity Reaction Status Date / Time No Known Allergies Allergy Unverified 04/18/18 02:43 - Medications Medications: Current Medications Albuterol/Ipratropium (Duoneb 3 Mg/0.5 Mg (3 Ml) Ud) 3 ml INH RQ4 [place] Last Admin: 04/19/18 07:38 Dose: 3 ml Bisacodyl (Dulcolax) 10 mg PO DAILY [facility] Last Admin: 04/19/18 09:57 Dose: 10 mg Dextrose/Sodium Chloride (Dextrose 5%/0.9% Ns 1000 Ml) 1,000 mls @ 50 mls/hr IV .Q20H [place] Last Admin: 04/18/18 14:44 Dose: 50 mls/hr Metronidazole (Flagyl) 500 mg in 100 mls @ 100 mls/hr IVPB Q8H [place]; Protocol Last Admin: 04/19/18 08:37 Dose: 100 mls/hr Ceftriaxone Sodium 1 gm/ (Sodium Chloride) 100 mls @ 100 mls/hr IVPB DAILY [facility]; Protocol Last Admin: 04/19/18 10:01 Dose: 100 mls/hr Methylprednisolone (Solu-Medrol) 40 mg IVP DAILY [facility] Last Admin: 04/19/18 10:04 Dose: 40 mg Metoclopramide HCl (Reglan) 5 mg IVPB Q6H [facility] Last Admin: 04/19/18 08:32 Dose: 5 mg Metoprolol Tartrate (Lopressor) 25 mg PO BID [facility] Last Admin: 04/19/18 09:57 Dose: 25 mg Montelukast Sodium (Singulair) 10 mg PO HS [facility] Last Admin: 04/18/18 21:41 Dose: 10 mg Pantoprazole Sodium (Protonix Inj) 40 mg IVP Q12H [facility] Last Admin: 04/19/18 03:05 Dose: 40 mg Physical Exam - Head Exam Head Exam: NORMAL INSPECTION - Eye Exam Eye Exam: Normal appearance - ENT Exam ENT Exam: Mucous Membranes Moist - Respiratory Exam Respiratory Exam: Clear to Auscultation Bilateral - Cardiovascular Exam Cardiovascular Exam: REGULAR RHYTHM, +S1, +S2 - GI/Abdominal Exam GI & Abdominal Exam: Normal Bowel Sounds, Soft - Extremities Exam Extremities exam: Positive for: normal inspection Results - Vital Signs Recent Vital Signs: Last Vital Signs Temp 98.0 F 04/19/18 07:00 Pulse 75 04/19/18 07:00 Resp 18 04/19/18 07:00 BP 135/83 04/19/18 09:57 Pulse Ox 96 04/19/18 07:00 - Labs Result Diagrams: 04/19/18 07:46 04/18/18 14:18 Labs: Laboratory Results - last 24 hr 04/18/18 04/18/18 04/18/18 13:44 14:18 14:18 WBC 20.8 H D RBC 4.09 L Hgb 12.4 Hct 36.1 MCV 88.3 MCH 30.4 MCHC 34.4 RDW 14.7 H Plt Count 386 MPV 7.7 Neut % (Auto) 95.3 H Lymph % (Auto) 1.9 L Rhea % (Auto) 2.8 Eos % (Auto) 0.0 Baso % (Auto) 0.0 Neut # (Auto) 19.8 H Lymph # (Auto) 0.4 L Rhea # (Auto) 0.6 Eos # (Auto) 0.0 Baso # (Auto) 0.0 Neutrophils % (Manual) 95 H Lymphocytes % (Manual) 2 L Monocytes % (Manual) 3 Platelet Estimate Normal Anisocytosis (manual) Slight Ovalocytes Slight PT INR APTT Puncture Site Rra pCO2 35 pO2 104 H HCO3 35.1 H ABG pH 7.61 H* ABG Total CO2 36.3 H ABG O2 Saturation 99.5 H ABG Base Excess 13.0 H Ricardo Test Pos ABG Potassium 3.3 L A-a O2 Difference 2.0 Respiratory Index 0 Sodium 135.0 136 Chloride 100.0 92 L Glucose 124 H Lactate 1.4 FiO2 21.0 Crit Value Called To Dr adam Crit Value Called By Jorge L nunez tail end rider Crit Value Read Back Y Blood Gas Notified Time 1347 Potassium 3.5 L Carbon Dioxide 35 H Anion Gap 13 BUN 21 H Creatinine 1.0 Est GFR ( Amer) > 60 Est GFR (Non-Af Amer) > 60 POC Glucose (mg/dL) Random Glucose 134 H Calcium 8.8 Total Bilirubin 0.5 AST 29 ALT 27 Alkaline Phosphatase 82 Total Protein 6.6 Albumin 3.8 Globulin 2.8 Albumin/Globulin Ratio 1.4 Amylase Lipase Arterial Blood Potassium 3.3 L 04/19/18 04/19/18 04/19/18 06:11 07:46 11:54 WBC 11.8 H RBC 3.80 L Hgb 10.8 L Hct 34.0 L MCV 89.3 MCH 28.5 MCHC 31.9 L RDW 15.1 H Plt Count 335 MPV 7.8 Neut % (Auto) Lymph % (Auto) Rhea % (Auto) Eos % (Auto) Baso % (Auto) Neut # (Auto) Lymph # (Auto) Rhea # (Auto) Eos # (Auto) Baso # (Auto) Neutrophils % (Manual) Lymphocytes % (Manual) Monocytes % (Manual) Platelet Estimate Anisocytosis (manual) Ovalocytes PT 12.3 H INR 1.1 APTT 28 D Puncture Site pCO2 pO2 HCO3 ABG pH ABG Total CO2 ABG O2 Saturation ABG Base Excess Ricardo Test ABG Potassium A-a O2 Difference Respiratory Index Sodium Chloride Glucose Lactate FiO2 Crit Value Called To Crit Value Called By Crit Value Read Back Blood Gas Notified Time Potassium Carbon Dioxide Anion Gap BUN Creatinine Est GFR ( Amer) Est GFR (Non-Af Amer) POC Glucose (mg/dL) 102 Random Glucose Calcium Total Bilirubin AST ALT Alkaline Phosphatase Total Protein Albumin Globulin Albumin/Globulin Ratio Amylase Lipase Arterial Blood Potassium 04/19/18 04/19/18 11:54 12:04 WBC RBC Hgb Hct MCV MCH MCHC RDW Plt Count MPV Neut % (Auto) Lymph % (Auto) Rhea % (Auto) Eos % (Auto) Baso % (Auto) Neut # (Auto) Lymph # (Auto) Rhea # (Auto) Eos # (Auto) Baso # (Auto) Neutrophils % (Manual) Lymphocytes % (Manual) Monocytes % (Manual) Platelet Estimate Anisocytosis (manual) Ovalocytes PT INR APTT Puncture Site pCO2 pO2 HCO3 ABG pH ABG Total CO2 ABG O2 Saturation ABG Base Excess Ricardo Test ABG Potassium A-a O2 Difference Respiratory Index Sodium Chloride Glucose Lactate FiO2 Crit Value Called To Crit Value Called By Crit Value Read Back Blood Gas Notified Time Potassium Carbon Dioxide Anion Gap BUN Creatinine Est GFR ( Amer) Est GFR (Non-Af Amer) POC Glucose (mg/dL) 121 H Random Glucose Calcium Total Bilirubin AST ALT Alkaline Phosphatase Total Protein Albumin Globulin Albumin/Globulin Ratio Amylase 43 Lipase 28 Arterial Blood Potassium Assessment & Plan (1) COPD exacerbation Status: Acute - Assessment and Plan (Free Text) Plan: Continue IV steroids Duo nebs GI w/u is in progress O2 supplementation DVT/GI prophalaxis
--- NOTE | 2018-04-19 14:56 | CP.PCM.CON ---
History of Present Illness - History of Present Illness History of Present Illness: CC: Shortness of breath HPI: 87 year old man with PUD. Presents with several days of worsening shortness of breath. Associated with hematemasis. Worse with exertion. Improves with rest. Occurs in the context of lower extremity edema. Past Patient History - Infectious Disease Hx of Infectious Diseases: None - Past Medical History & Family History Past Medical History?: Yes - Past Social History Smoking Status: Never Smoked - CARDIAC Hx Hypertension: Yes - PULMONARY Hx Asthma: Yes - NEUROLOGICAL Hx Neurological Disorder: No - HEENT Hx HEENT Problems: No - MUSCULOSKELETAL/RHEUMATOLOGICAL Hx Falls: No - GASTROINTESTINAL Hx Constipation: Yes - PSYCHIATRIC Hx Substance Use: No - SURGICAL HISTORY Hx Coronary Stent: Yes - ANESTHESIA Hx Anesthesia: Yes Hx Anesthesia Reactions: No Meds Allergies/Adverse Reactions: Allergies Allergy/AdvReac Type Severity Reaction Status Date / Time No Known Allergies Allergy Unverified 04/18/18 02:43 - Medications Medications: Current Medications Albuterol/Ipratropium (Duoneb 3 Mg/0.5 Mg (3 Ml) Ud) 3 ml INH RQ4 [facility] Last Admin: 04/19/18 13:59 Dose: 3 ml Bisacodyl (Dulcolax) 10 mg PO DAILY [facility] Last Admin: 04/19/18 09:57 Dose: 10 mg Dextrose/Sodium Chloride (Dextrose 5%/0.9% Ns 1000 Ml) 1,000 mls @ 50 mls/hr IV .Q20H [facility] Last Admin: 04/18/18 14:44 Dose: 50 mls/hr Metronidazole (Flagyl) 500 mg in 100 mls @ 100 mls/hr IVPB Q8H [facility]; Protocol Last Admin: 04/19/18 08:37 Dose: 100 mls/hr Ceftriaxone Sodium 1 gm/ (Sodium Chloride) 100 mls @ 100 mls/hr IVPB DAILY [facility]; Protocol Last Admin: 04/19/18 10:01 Dose: 100 mls/hr Methylprednisolone (Solu-Medrol) 40 mg IVP DAILY [facility] Last Admin: 04/19/18 10:04 Dose: 40 mg Metoclopramide HCl (Reglan) 5 mg IVPB Q6H [facility] Last Admin: 04/19/18 14:32 Dose: 5 mg Metoprolol Tartrate (Lopressor) 25 mg PO BID [facility] Last Admin: 04/19/18 09:57 Dose: 25 mg Montelukast Sodium (Singulair) 10 mg PO HS [facility] Last Admin: 04/18/18 21:41 Dose: 10 mg Pantoprazole Sodium (Protonix Inj) 40 mg IVP Q12H [facility] Last Admin: 04/19/18 14:43 Dose: 40 mg Physical Exam - Constitutional Appears: Well, Non-toxic, Chronically Ill - Head Exam Head Exam: ATRAUMATIC, NORMAL INSPECTION - Eye Exam Eye Exam: PERRL. absent: Scleral icterus - ENT Exam ENT Exam: Mucous Membranes Dry, Normal External Ear Exam - Neck Exam Neck exam: Positive for: Full Rom. Negative for: Thyromegaly - Respiratory Exam Respiratory Exam: Rhonchi, Wheezes, NORMAL BREATHING PATTERN - Cardiovascular Exam Cardiovascular Exam: REGULAR RHYTHM, JVD, +S1, +S2, Systolic Murmur Additional comments: 1+ LE edema - GI/Abdominal Exam GI & Abdominal Exam: Normal Bowel Sounds. absent: Organomegaly - Neurological Exam Neurological exam: CN II-XII Intact, Oriented x3 - Psychiatric Exam Psychiatric exam: Normal Affect, Normal Mood Results - Vital Signs Recent Vital Signs: Last Vital Signs Temp 98.0 F 04/19/18 07:00 Pulse 61 04/19/18 07:47 Resp 18 04/19/18 07:00 BP 135/83 04/19/18 09:57 Pulse Ox 96 04/19/18 07:47 - Labs Result Diagrams: 04/19/18 07:46 04/18/18 14:18 Labs: Laboratory Results - last 24 hr 04/18/18 04/19/18 04/19/18 14:18 06:11 07:46 WBC 11.8 H RBC 3.80 L Hgb 10.8 L Hct 34.0 L MCV 89.3 MCH 28.5 MCHC 31.9 L RDW 15.1 H Plt Count 335 MPV 7.8 Neutrophils % (Manual) 95 H Lymphocytes % (Manual) 2 L Monocytes % (Manual) 3 Platelet Estimate Normal Anisocytosis (manual) Slight Ovalocytes Slight PT INR APTT POC Glucose (mg/dL) 102 Amylase Lipase Carcinoembryonic Ag CA 19-9 Antigen 04/19/18 04/19/18 04/19/18 11:54 11:54 12:04 WBC RBC Hgb Hct MCV MCH MCHC RDW Plt Count MPV Neutrophils % (Manual) Lymphocytes % (Manual) Monocytes % (Manual) Platelet Estimate Anisocytosis (manual) Ovalocytes PT 12.3 H INR 1.1 APTT 28 D POC Glucose (mg/dL) 121 H Amylase 43 Lipase 28 Carcinoembryonic Ag 1.9 CA 19-9 Antigen 30.4 - EKG Data EKG Interpreted by: Myself EKG shows normal: Sinus rhythm Rate: Normal - Imaging and Cardiology Chest x-ray Status: Image reviewed by me (Poor inspirtory effort, pulmonary vascular congestion ) Assessment & Plan - Assessment and Plan (Free Text) Assessment: 87 year old man with COPD exacerbation on solumdedrol, bronchodilators, abx Acute diastolic CHF measure filling pressures with 2D echo, calcuate EF He will benefit from lasix to maintain euvolemia Metabolic alkalosis due to chronic CO2 retention so can add diamox to assist in diuresis PUD schedule for GI work follow up, PPI
[2018-04-19 16:24] VITALS: RESP 20
[2018-04-19] MEDS ORDERED: Potassium Chloride 20 mEq ER Tab PO ONE (22:00)
[2018-04-20] MEDS: Albuterol-Ipratrop 3 mg / 0.5 (3 ml) UD INH SCH ×8 (00:35→23:58)
[2018-04-20] MEDS: metroNIDAZOLE IV 500 mg/100 ml 500 MG/100 ML BAG IVPB SCH ×3 (06:32→22:37)
[2018-04-20] MEDS: Dextrose 5%/0.9% NS 1,000 ML IV SCH (06:32)
--- NOTE | 2018-04-20 09:05 | CP.PCM.CON ---
History of Present Illness - History of Present Illness History of Present Illness: Patient states that he is still short of breath today, not back at baseline, loud wheezes on b/l lung dawson. He is pending pulmonary and cardiology evaluation. Plan to do EGD tomorrow once pulmonary status is improved. Past Patient History - Infectious Disease Hx of Infectious Diseases: None - Past Medical History & Family History Past Medical History?: Yes - Past Social History Smoking Status: Never Smoked - CARDIAC Hx Hypertension: Yes - PULMONARY Hx Asthma: Yes - NEUROLOGICAL Hx Neurological Disorder: No - HEENT Hx HEENT Problems: No - MUSCULOSKELETAL/RHEUMATOLOGICAL Hx Falls: No - GASTROINTESTINAL Hx Constipation: Yes - PSYCHIATRIC Hx Substance Use: No - SURGICAL HISTORY Hx Coronary Stent: Yes - ANESTHESIA Hx Anesthesia: Yes Hx Anesthesia Reactions: No Meds Allergies/Adverse Reactions: Allergies Allergy/AdvReac Type Severity Reaction Status Date / Time No Known Allergies Allergy Unverified 04/18/18 02:43 - Medications Medications: Current Medications Albuterol/Ipratropium (Duoneb 3 Mg/0.5 Mg (3 Ml) Ud) 3 ml INH RQ4 [place] Last Admin: 04/20/18 07:28 Dose: 3 ml Bisacodyl (Dulcolax) 10 mg PO DAILY [place] Last Admin: 04/19/18 09:57 Dose: 10 mg Dextrose/Sodium Chloride (Dextrose 5%/0.9% Ns 1000 Ml) 1,000 mls @ 50 mls/hr IV .Q20H [place] Last Admin: 04/20/18 06:32 Dose: 50 mls/hr Metronidazole (Flagyl) 500 mg in 100 mls @ 100 mls/hr IVPB Q8H [place]; Protocol Last Admin: 04/20/18 06:32 Dose: 100 mls/hr Ceftriaxone Sodium 1 gm/ (Sodium Chloride) 100 mls @ 100 mls/hr IVPB DAILY [facility]S AT [facility]; Protocol Last Admin: 04/19/18 10:01 Dose: 100 mls/hr Methylprednisolone (Solu-Medrol) 40 mg IVP DAILY [facility] Last Admin: 04/19/18 10:04 Dose: 40 mg Metoclopramide HCl (Reglan) 5 mg IVPB Q6H [place] Last Admin: 04/20/18 08:30 Dose: 5 mg Metoprolol Tartrate (Lopressor) 25 mg PO BID [facility] Last Admin: 04/19/18 17:39 Dose: 25 mg Montelukast Sodium (Singulair) 10 mg PO HS [facility] Last Admin: 04/19/18 21:29 Dose: 10 mg Pantoprazole Sodium (Protonix Inj) 40 mg IVP Q12H [facility] Last Admin: 04/20/18 02:53 Dose: 40 mg Results - Vital Signs Recent Vital Signs: Last Vital Signs Temp 97.9 F 04/20/18 07:00 Pulse 99 H 04/20/18 07:00 Resp 20 04/20/18 07:00 BP 137/88 04/20/18 07:00 Pulse Ox 95 04/20/18 07:00 - Labs Result Diagrams: 04/19/18 07:46 04/18/18 14:18 Labs: Laboratory Results - last 24 hr 04/19/18 04/19/18 04/19/18 11:54 11:54 12:04 PT 12.3 H INR 1.1 APTT 28 D POC Glucose (mg/dL) 121 H Amylase 43 Lipase 28 Carcinoembryonic Ag 1.9 CA 19-9 Antigen 30.4
--- NOTE | 2018-04-20 09:33 | PN ---
DATE: 04/17/2018 LOCATION: 660, bed B. SUBJECTIVE: This is an 87-year-old male, post upper endoscopy with removal of a foreign body, tolerating oral intake well. The entire chart is reviewed including but not limited to most recent lab and radiology study results, current and the previous medication list, current and the previous medical events. Case discussed with the staff at length. The patient appeared to be awake, alert and oriented, reporting a small bowel movement last night. Today's lab results showed CO2 content of 31 indicative of respiratory alkalosis. Blood glucose level 126. PHYSICAL EXAMINATION: GENERAL: An 87-year-old male, awake, alert, oriented. VITAL SIGNS: Afebrile with pulse of 60, respiratory rate 20 to 22, blood pressure of 132/74. HEENT: Showed pale dry mucoid membranes. Nonicteric sclerae. LUNGS: Few scattered crepitation. Decreased air entry at bases. HEART: Positive S1 and S2. ABDOMEN: Soft with slight distention. No mass or organomegaly. No rebound tenderness or guarding. EXTREMITIES: Without significant clubbing, cyanosis or edema. NEUROLOGIC: No reported new neurological deficits, sensory or motor. IMPRESSION: 1. 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 2. Recent history of gastrointestinal bleeding. 3. Gastric foreign body. 4. Anemia, mild, secondary to above most likely. 5. Known history of bronchial asthma and hypertension. 6. Known history of coronary artery disease, status post cardiac stent insertion. SUGGESTIONS: 1. Continue current management. 2. Antireflux measure. 3. Advance diet gradually. 4. Further recommendation to follow. Johann Guerra MD
[2018-04-20] MEDS: Bisacodyl 5mg EC Tab PO SCH (10:07)
[2018-04-20] MEDS: MethylPREDNISolone 40 mg Vial IVP SCH (10:23)
[2018-04-20] MEDS ORDERED: Potassium Chloride 20 mEq/15 ml LIQ UD PO ONE (11:00)
--- NOTE | 2018-04-20 11:50 | PN ---
DATE: 04/20/2018 LOCATION: 657, bed A. SUBJECTIVE: This is an 87-year-old male who was seen initially for GI consultation on 04/18/2018, re-examined again today in the endoscopy room for potential upper endoscopy; however, due to the patient's mild wheezing and shortness of breath, there was a great concern from the anesthesia staff to perform the procedure today for which the procedure had to be canceled and to be rescheduled for a.m. after an adequate preparation. The patient had no reported active bleeding this morning and no nausea or vomiting. PHYSICAL EXAMINATION: GENERAL: An 87-year-old male. VITAL SIGNS: Afebrile with pulse of 94, respiratory rate 20 to 22, blood pressure 134/86. HEENT: Showed pale dry oral mucoid membrane, nonicteric sclerae. LUNGS: Few scattered crepitation, decreased air entry at bases. There was some scattered crepitations with mild wheezing bilaterally at both lungs with some with air entry HEART: Positive S1 and S2. ABDOMEN: Soft with mild generalized tenderness. No mass or organomegaly. No rebound tenderness or guarding. EXTREMITIES: Without edema, clubbing or cyanosis. NEUROLOGIC: No reported new neurological deficits, sensory or motor. LABORATORY DATA: Today's lab results still pending. However, the latest blood results showed leukocytosis of 11.8, hemoglobin 10.8, hematocrit 34. IMPRESSION: 1. Recurrent hematemesis with peptic ulcer disease and large hiatal hernia. 2. Re-exacerbation of peptic ulcer disease. 3. Re-exacerbation of bronchial asthma. 4. Anemia, secondary to above. 5. Known history of hypertension, coronary artery disease, status post cardiac stent insertion. 6. Possibility aspiration pneumonia again was raised. SUGGESTIONS: 1. Agree with your plan. 2. Please get upper endoscopy in a.m. 3. Followup with pulmonary consultation request and treatment. Johann Guerra MD
--- NOTE | 2018-04-20 11:55 | CARD ---
APPROVED REPORT Date of service: 04/18/2018 EKG Measurement Heart [id number] <Conclusion> Sinus rhythm with premature supraventricular complexes and with occasional premature ventricular complexes Possible Left atrial enlargement Right axis deviation Pulmonary disease pattern Abnormal ECG
--- NOTE | 2018-04-20 12:50 | CARD ---
APPROVED REPORT Date of service: 04/20/2018 EXAM: Two-dimensional and M-mode echocardiogram with Doppler and color Doppler. Other Information Quality : TDSRhythm : INDICATION Congestive Heart Failure COPD 2D DIMENSIONS IVSd0.8 (0.7-1.1cm)LVDd5.1 (3.9-5.9cm) LVOT Diameter2.4 (1.8-2.4cm)PWd0.8 (0.7-1.1cm) LA Telfrv99 (18-58mL)LVDs3.5 (2.5-4.0cm) FS (%) 31.4 %LVEF (%)59.0 (>50%) LVEF (Sethi's)60.02 % M-Mode DIMENSIONS Left Atrium (MM)2.81 (2.5-4.0cm)IVSd1.04 (0.7-1.1cm) Aortic Root3.71 (2.2-3.7cm)LVDd5.07 (4.0-5.6cm) Aortic Cusp Exc.0.87 (1.5-2.0cm)PWd0.85 (0.7-1.1cm) FS (%) 39 %LVDs3.09 (2.0-3.8cm) LVEF (%)69 (>50%) Aortic Valve AoV Peak Otgjzbxu674.0cm/sAoV VTI56.4cmAO Peak GR.31mmHg LVOT Peak Jvbavpqp101.2cm/sLVOT VTI20.34cmAO Mean GR.19mmHg BRIGHT (VMAX)1.53do8PWA (VTI)1.64cm2 Mitral Valve MV E Opkujoic62.3cm/sMV A Zmcswvwx761.8cm/sE/A ratio0.7 TDI Lateral E' Peak V4.48cm/sMedial E' Peak V3.64cm/sE/Lateral E'17.5 E/Medial E'21.5 Tricuspid Valve TR Peak Qufxjpsx381mj/sTR Peak Gr.33gnQsYLWZ86tmPc LEFT VENTRICLE The left ventricle is normal size. There is normal left ventricular wall thickness. Left ventricle systolic function is normal. The Ejection Fraction is 60-65%. There is normal LV segmental wall motion. Transmitral Doppler flow pattern is Grade I-abnormal relaxation pattern. There is no ventricular septal defect visualized. RIGHT VENTRICLE The right ventricle is normal size. The right ventricular systolic function is normal. ATRIA The left atrium is mildly dilated. The right atrium size is normal. AORTIC VALVE The aortic valve is mildly to moderately sclerotic. The aortic valve is tri-cuspid. No aortic regurgitation is present. There is mild valvular aortic stenosis. Calculated aortic valve area is 1.4 cm2 with maximum pressure gradient of 33 mmHg and mean pressure gradient of 20 mmHg. MITRAL VALVE Mitral annular calcification is mild. There is no evidence of mitral valve prolapse. Mitral regurgitation is mild. 2 jets TRICUSPID VALVE The tricuspid valve is normal in structure. There is trace to mild tricuspid regurgitation. Right ventricular systolic pressure is estimated at 30-40 mmHg. There is mild pulmonary hypertension. PULMONIC VALVE The pulmonary valve is normal in structure. There is trace pulmonic valvular regurgitation. GREAT VESSELS The aortic root is mildly enlarged. 3.8 cm The ascending aorta is Mildly dilated. 3.7 cm The IVC is normal in size and collapses >50% with inspiration. PERICARDIAL EFFUSION There is no pericardial effusion. <Conclusion> Left ventricle systolic function is normal. The Ejection Fraction is 60-65%. Transmitral Doppler flow pattern is Grade I-abnormal relaxation pattern. There is mild valvular aortic stenosis. Mitral regurgitation is mild. 2 jets There is mild pulmonary hypertension.
--- NOTE | 2018-04-20 16:28 | CP.PCM.PN ---
Subjective - Date & Time of Evaluation Date of Evaluation: 04/20/18 Time of Evaluation: 14:00 - Subjective Subjective: Patient seen today c/o sob with minimal activity and cough , patient scheduled for EGD today and cancelled secondary to severe wheezing and sob plan for EGD in am if pul. condition improved Objective - Vital Signs/Intake and Output Vital Signs (last 24 hours): Temp Pulse Resp BP Pulse Ox 97.6 F 74 20 122/77 98 04/20/18 15:00 04/20/18 15:00 04/20/18 15:00 04/20/18 15:00 04/20/18 15:00 - Medications Medications: Current Medications Albuterol/Ipratropium (Duoneb 3 Mg/0.5 Mg (3 Ml) Ud) 3 ml INH RQ4 [facility] Last Admin: 04/20/18 15:22 Dose: 3 ml Bisacodyl (Dulcolax) 10 mg PO DAILY [facility] Last Admin: 04/20/18 10:07 Dose: 10 mg Furosemide (Lasix) 20 mg IVP DAILY [facility] Dextrose/Sodium Chloride (Dextrose 5%/0.9% Ns 1000 Ml) 1,000 mls @ 50 mls/hr IV .Q20H [facility] Last Admin: 04/20/18 06:32 Dose: 50 mls/hr Metronidazole (Flagyl) 500 mg in 100 mls @ 100 mls/hr IVPB Q8H [facility]; Protocol Last Admin: 04/20/18 06:32 Dose: 100 mls/hr Ceftriaxone Sodium 1 gm/ (Sodium Chloride) 100 mls @ 100 mls/hr IVPB DAILY [facility]; Protocol Last Admin: 04/20/18 10:22 Dose: 100 mls/hr Methylprednisolone (Solu-Medrol) 40 mg IVP DAILY [facility] Last Admin: 04/20/18 10:23 Dose: 40 mg Metoclopramide HCl (Reglan) 5 mg IVPB Q6H [facility] Last Admin: 04/20/18 14:05 Dose: 5 mg Metoprolol Tartrate (Lopressor) 25 mg PO BID [facility] Last Admin: 04/20/18 10:23 Dose: 25 mg Montelukast Sodium (Singulair) 10 mg PO HS [facility] Last Admin: 04/19/18 21:29 Dose: 10 mg Pantoprazole Sodium (Protonix Inj) 40 mg IVP Q12H [facility] Last Admin: 04/20/18 14:05 Dose: 40 mg - Labs Labs: 04/19/18 07:46 04/18/18 14:18 PT 12.3 SECONDS (9.7-12.2) H 04/19/18 11:54 INR 1.1 04/19/18 11:54 APTT 28 SECONDS (21-34) D 04/19/18 11:54 Assessment and Plan - Assessment and Plan (Free Text) Assessment: A/P 87 year old male re admitted after being admitted for 5 days for upper GI bleed with wheezing and SOB patient started on on solumedrol and neb. treatment pt was scheduled for EGD today and cancelled secondary to sob and wheezing and scheduled for tmw pending pul. status cardiology seen patient today , recommends [facility] And ordered D/w Dr. huynh patient require inpatient admission due to co morbidities
--- NOTE | 2018-04-20 19:26 | CP.PCM.PN ---
Subjective - Date & Time of Evaluation Date of Evaluation: 04/20/18 Time of Evaluation: 19:26 - Subjective Subjective: Pt is seen and examined Events noted EGD postponed due to wheezing No wheezing at present time Objective - Vital Signs/Intake and Output Vital Signs (last 24 hours): Temp Pulse Resp BP Pulse Ox 97.6 F 82 20 142/97 H 95 04/20/18 15:00 04/20/18 16:00 04/20/18 15:00 04/20/18 18:03 04/20/18 16:00 - Medications Medications: Current Medications Albuterol/Ipratropium (Duoneb 3 Mg/0.5 Mg (3 Ml) Ud) 3 ml INH RQ4 [facility] Last Admin: 04/20/18 15:22 Dose: 3 ml Bisacodyl (Dulcolax) 10 mg PO DAILY [facility] Last Admin: 04/20/18 10:07 Dose: 10 mg Fluticasone/Vilanterol (Breo Ellipta 200-25 Mcg Inh) 1 puff INH RQD [facility] Furosemide (Lasix) 20 mg IVP DAILY [facility] Last Admin: 04/20/18 18:03 Dose: 20 mg Dextrose/Sodium Chloride (Dextrose 5%/0.9% Ns 1000 Ml) 1,000 mls @ 50 mls/hr IV .Q20H [facility] Last Admin: 04/20/18 06:32 Dose: 50 mls/hr Metronidazole (Flagyl) 500 mg in 100 mls @ 100 mls/hr IVPB Q8H [facility]; Protocol Last Admin: 04/20/18 16:34 Dose: 100 mls/hr Ceftriaxone Sodium 1 gm/ (Sodium Chloride) 100 mls @ 100 mls/hr IVPB DAILY [facility]; Protocol Last Admin: 04/20/18 10:22 Dose: 100 mls/hr Methylprednisolone (Solu-Medrol) 40 mg IVP DAILY [facility] Last Admin: 04/20/18 10:23 Dose: 40 mg Metoclopramide HCl (Reglan) 5 mg IVPB Q6H [place] Last Admin: 04/20/18 19:21 Dose: 5 mg Metoprolol Tartrate (Lopressor) 25 mg PO BID [facility] Last Admin: 04/20/18 18:03 Dose: 25 mg Montelukast Sodium (Singulair) 10 mg PO HS [facility] Last Admin: 04/19/18 21:29 Dose: 10 mg Pantoprazole Sodium (Protonix Inj) 40 mg IVP Q12H [place] Last Admin: 04/20/18 14:05 Dose: 40 mg - Labs Labs: 04/19/18 07:46 04/18/18 14:18 PT 12.3 SECONDS (9.7-12.2) H 04/19/18 11:54 INR 1.1 04/19/18 11:54 APTT 28 SECONDS (21-34) D 04/19/18 11:54 - Head Exam Head Exam: NORMAL INSPECTION - Eye Exam Eye Exam: Normal appearance - ENT Exam ENT Exam: Mucous Membranes Moist - Respiratory Exam Respiratory Exam: Rhonchi - Cardiovascular Exam Cardiovascular Exam: REGULAR RHYTHM, +S1, +S2 - GI/Abdominal Exam GI & Abdominal Exam: Soft, Normal Bowel Sounds - Extremities Exam Extremities Exam: Normal Inspection - Neurological Exam Neurological Exam: Alert, Oriented x3 Assessment and Plan (1) COPD exacerbation Status: Acute - Assessment and Plan (Free Text) Plan: Continue IV steroids Add Breo Ellipta 200/25 mcg 1 P QD Bronchodilators O2 supplementation DVT/GI prophalaxis
[2018-04-21] MEDS: Dextrose 5%/0.9% NS 1,000 ML IV SCH (02:54)
[2018-04-21] MEDS: Albuterol-Ipratrop 3 mg / 0.5 (3 ml) UD INH SCH ×6 (03:17→23:46)
[2018-04-21] MEDS: metroNIDAZOLE IV 500 mg/100 ml 500 MG/100 ML BAG IVPB SCH ×3 (07:57→23:18)
[2018-04-21 08:04] LABS: BLOOD UREA NITROGEN 17 mg/dL (9-20); CALCIUM 8.5 mg/dl (8.6-10.4); GFR NON-AFRICAN AMERICAN > 60
[2018-04-21] MEDS: Bisacodyl 5mg EC Tab PO SCH (09:45)
[2018-04-21] MEDS: MethylPREDNISolone 40 mg Vial IVP SCH (09:59)
--- NOTE | 2018-04-21 10:34 | CP.PCM.PN ---
Subjective - Date & Time of Evaluation Date of Evaluation: 04/21/18 Time of Evaluation: 10:30 - Subjective Subjective: Patient appears comfortable this AM. No vomiting yesterday, tolerating diet. No bleeding. No complaints. Objective - Vital Signs/Intake and Output Vital Signs (last 24 hours): Temp Pulse Resp BP Pulse Ox 97.4 F L 57 L 20 121/68 94 L 04/21/18 07:10 04/21/18 07:10 04/21/18 07:10 04/21/18 09:55 04/21/18 07:10 Intake and Output: 04/21/18 04/21/18 06:59 18:59 Intake Total 770 Output Total 450 Balance 320 - Medications Medications: Current Medications Albuterol/Ipratropium (Duoneb 3 Mg/0.5 Mg (3 Ml) Ud) 3 ml INH RQ4 [place] Last Admin: 04/21/18 07:49 Dose: 3 ml Bisacodyl (Dulcolax) 10 mg PO DAILY [facility] Last Admin: 04/21/18 09:45 Dose: Not Given Fluticasone/Vilanterol (Breo Ellipta 200-25 Mcg Inh) 1 puff INH RQD [place] Furosemide (Lasix) 20 mg IVP DAILY [facility] Dextrose/Sodium Chloride (Dextrose 5%/0.9% Ns 1000 Ml) 1,000 mls @ 50 mls/hr IV .Q20H [facility] Last Admin: 04/21/18 02:54 Dose: Not Given Metronidazole (Flagyl) 500 mg in 100 mls @ 100 mls/hr IVPB Q8H [facility]; Protocol Last Admin: 04/21/18 07:57 Dose: 100 mls/hr Ceftriaxone Sodium 1 gm/ (Sodium Chloride) 100 mls @ 100 mls/hr IVPB DAILY [facility]; Protocol Last Admin: 04/21/18 09:36 Dose: 100 mls/hr Methylprednisolone (Solu-Medrol) 40 mg IVP DAILY [facility] Last Admin: 04/21/18 09:59 Dose: 40 mg Metoclopramide HCl (Reglan) 5 mg IVPB Q6H [facility] Last Admin: 04/21/18 07:55 Dose: 5 mg Metoprolol Tartrate (Lopressor) 25 mg PO BID [facility] Last Admin: 04/21/18 09:34 Dose: 25 mg Montelukast Sodium (Singulair) 10 mg PO HS [facility] Last Admin: 04/20/18 21:36 Dose: 10 mg Pantoprazole Sodium (Protonix Inj) 40 mg IVP Q12H [facility] Last Admin: 04/21/18 02:55 Dose: 40 mg - Labs Labs: 04/19/18 07:46 04/21/18 07:43 PT 12.3 SECONDS (9.7-12.2) H 04/19/18 11:54 INR 1.1 04/19/18 11:54 APTT 28 SECONDS (21-34) D 04/19/18 11:54 - Constitutional Appears: Non-toxic, No Acute Distress - Head Exam Head Exam: ATRAUMATIC, NORMAL INSPECTION - Eye Exam Eye Exam: EOMI, Normal appearance - Respiratory Exam Respiratory Exam: Clear to Ausculation Bilateral, NORMAL BREATHING PATTERN - Cardiovascular Exam Cardiovascular Exam: REGULAR RHYTHM, +S1, +S2 - GI/Abdominal Exam GI & Abdominal Exam: Soft, Normal Bowel Sounds. absent: Tenderness - Extremities Exam Extremities Exam: Normal Inspection. absent: Pedal Edema - Neurological Exam Neurological Exam: Alert, Awake, Oriented x3 - Psychiatric Exam Psychiatric exam: Normal Affect, Normal Mood - Skin Skin Exam: Normal Color, Warm Assessment and Plan - Assessment and Plan (Free Text) Assessment: #Large hiatal hernia, likely type III, symptomatic #Vomiting, resolved #Esophagitis, gastritis, duodenitis PLAN: -Continue liquid diet, tolerating. -I advised to avoid meats or tough/chewy foods (spinach, muscles). Only liquids and soft food (applesauce, mashed potatotes, yogurt) -Symptomatic, type 3 hernia, may benefit from surgical evaluation. -Continue PPI daily for GERD management. -Monitor Hb. No obvious active bleeding. -No planned endoscopic procedures at that time. Case discussed with Dr. Whyte, see attestation.
--- NOTE | 2018-04-21 10:43 | CP.PCM.PN ---
Subjective - Date & Time of Evaluation Date of Evaluation: 04/21/18 Time of Evaluation: 10:40 - Subjective Subjective: PT STILL COUGHING HAD AN EPISODE OF [place] SEEN TODAY BY DR PRATT Objective - Vital Signs/Intake and Output Vital Signs (last 24 hours): Temp Pulse Resp BP Pulse Ox 97.4 F L 57 L 20 121/68 94 L 04/21/18 07:10 04/21/18 07:10 04/21/18 07:10 04/21/18 09:55 04/21/18 07:10 Intake and Output: 04/21/18 04/21/18 06:59 18:59 Intake Total 770 Output Total 450 Balance 320 - Medications Medications: Current Medications Albuterol/Ipratropium (Duoneb 3 Mg/0.5 Mg (3 Ml) Ud) 3 ml INH RQ4 [facility] Last Admin: 04/21/18 07:49 Dose: 3 ml Bisacodyl (Dulcolax) 10 mg PO DAILY [facility] Last Admin: 04/21/18 09:45 Dose: Not Given Fluticasone/Vilanterol (Breo Ellipta 200-25 Mcg Inh) 1 puff INH RQD [facility] Furosemide (Lasix) 20 mg IVP DAILY [facility] Dextrose/Sodium Chloride (Dextrose 5%/0.9% Ns 1000 Ml) 1,000 mls @ 50 mls/hr IV .Q20H [place] Last Admin: 04/21/18 02:54 Dose: Not Given Metronidazole (Flagyl) 500 mg in 100 mls @ 100 mls/hr IVPB Q8H [facility]; Protocol Last Admin: 04/21/18 07:57 Dose: 100 mls/hr Ceftriaxone Sodium 1 gm/ (Sodium Chloride) 100 mls @ 100 mls/hr IVPB DAILY [facility]; Protocol Last Admin: 04/21/18 09:36 Dose: 100 mls/hr Methylprednisolone (Solu-Medrol) 40 mg IVP DAILY [facility] Last Admin: 04/21/18 09:59 Dose: 40 mg Metoclopramide HCl (Reglan) 5 mg IVPB Q6H [facility] Last Admin: 04/21/18 07:55 Dose: 5 mg Metoprolol Tartrate (Lopressor) 25 mg PO BID [facility] Last Admin: 04/21/18 09:34 Dose: 25 mg Montelukast Sodium (Singulair) 10 mg PO HS [facility] Last Admin: 04/20/18 21:36 Dose: 10 mg Pantoprazole Sodium (Protonix Inj) 40 mg IVP Q12H [facility] Last Admin: 04/21/18 02:55 Dose: 40 mg - Labs Labs: 04/19/18 07:46 04/21/18 07:43 PT 12.3 SECONDS (9.7-12.2) H 04/19/18 11:54 INR 1.1 04/19/18 11:54 APTT 28 SECONDS (21-34) D 04/19/18 11:54 - Head Exam Head Exam: ATRAUMATIC - Eye Exam Eye Exam: Normal appearance Pupil Exam: NORMAL ACCOMODATION - ENT Exam ENT Exam: Normal Exam - Neck Exam Neck Exam: Normal Inspection - Respiratory Exam Respiratory Exam: Decreased Breath Sounds, Rales, Wheezes - Cardiovascular Exam Cardiovascular Exam: REGULAR RHYTHM - GI/Abdominal Exam GI & Abdominal Exam: Normal Bowel Sounds - Exam Exam: NORMAL INSPECTION - Extremities Exam Extremities Exam: Full ROM - Back Exam Back Exam: NORMAL INSPECTION - Neurological Exam Neurological Exam: Awake, Oriented x3 - Psychiatric Exam Psychiatric exam: Normal Affect - Skin Skin Exam: Normal Color Assessment and Plan - Assessment and Plan (Free Text) Assessment: EX COPD AC BRONCHITIS [place]
[2018-04-21 11:14] LABS: BASO % 0.3 % (0.0-2.0); EOS % 0.1 % (0.0-4.0); HEMOGLOBIN 12.4 g/dL (12.0-18.0); LYMPH # 1.2 K/uL (1.0-4.3); LYMPH % 22.1 % (20.0-40.0); NEUT # 3.6 K/uL (1.8-7.0); RED CELL DISTRIBUTION WIDTH 15.6 % (11.5-14.5)
[2018-04-21 11:19] LABS: MEAN CORPUSCULAR HGB CONC 32.7 g/dL (33.0-37.0); MEAN PLATELET VOLUME 10.5 fL (7.2-11.7); MONO # 0.7 K/uL (0.0-0.8); NEUT % 65.5 % (50.0-75.0); NRBC % 0.3 % (0.0-2.0); RBC 4.42 Mil/uL (4.40-5.90)
[2018-04-21] MEDS: Fluticasone-Vilanterol 200/25mcg Diskus INH SCH (11:19)
[2018-04-21 11:21] LABS: MEAN CELL VOLUME 85.9 fL (80.0-94.0); WHITE BLOOD COUNT 5.5 K/uL (4.8-10.8)
--- NOTE | 2018-04-21 13:30 | CP.PCM.PN ---
Subjective - Date & Time of Evaluation Date of Evaluation: 04/21/18 Time of Evaluation: 13:28 - Subjective Subjective: No CP No SOB + edema in legs No wheeze, fevers or chills Objective - Vital Signs/Intake and Output Vital Signs (last 24 hours): Temp Pulse Resp BP Pulse Ox 97.4 F L 57 L 20 121/68 94 L 04/21/18 07:10 04/21/18 07:10 04/21/18 07:10 04/21/18 09:55 04/21/18 07:10 Intake and Output: 04/21/18 04/21/18 06:59 18:59 Intake Total 770 Output Total 450 Balance 320 - Medications Medications: Current Medications Albuterol/Ipratropium (Duoneb 3 Mg/0.5 Mg (3 Ml) Ud) 3 ml INH RQ4 [facility] Last Admin: 04/21/18 11:17 Dose: 3 ml Bisacodyl (Dulcolax) 10 mg PO DAILY [facility] Last Admin: 04/21/18 09:45 Dose: Not Given Fluticasone/Vilanterol (Breo Ellipta 200-25 Mcg Inh) 1 puff INH RQD [facility] Last Admin: 04/21/18 11:19 Dose: Not Given Furosemide (Lasix) 20 mg IVP DAILY [facility] Dextrose/Sodium Chloride (Dextrose 5%/0.9% Ns 1000 Ml) 1,000 mls @ 50 mls/hr IV .Q20H [facility] Last Admin: 04/21/18 02:54 Dose: Not Given Metronidazole (Flagyl) 500 mg in 100 mls @ 100 mls/hr IVPB Q8H [facility]; Protocol Last Admin: 04/21/18 07:57 Dose: 100 mls/hr Ceftriaxone Sodium 1 gm/ (Sodium Chloride) 100 mls @ 100 mls/hr IVPB DAILY [facility]; Protocol Last Admin: 04/21/18 09:36 Dose: 100 mls/hr Methylprednisolone (Solu-Medrol) 40 mg IVP DAILY [facility] Last Admin: 04/21/18 09:59 Dose: 40 mg Metoclopramide HCl (Reglan) 5 mg IVPB Q6H [facility] Last Admin: 04/21/18 07:55 Dose: 5 mg Metoprolol Tartrate (Lopressor) 25 mg PO BID [facility] Last Admin: 04/21/18 09:34 Dose: 25 mg Montelukast Sodium (Singulair) 10 mg PO HS [facility] Last Admin: 04/20/18 21:36 Dose: 10 mg Pantoprazole Sodium (Protonix Inj) 40 mg IVP Q12H [facility] Last Admin: 04/21/18 02:55 Dose: 40 mg - Labs Labs: 04/21/18 11:04 04/21/18 07:43 PT 12.3 SECONDS (9.7-12.2) H 04/19/18 11:54 INR 1.1 04/19/18 11:54 APTT 28 SECONDS (21-34) D 04/19/18 11:54 - Constitutional Appears: No Acute Distress - Head Exam Head Exam: ATRAUMATIC, NORMAL INSPECTION, NORMOCEPHALIC - Eye Exam Eye Exam: EOMI, Normal appearance. absent: Scleral icterus - ENT Exam ENT Exam: Mucous Membranes Moist, Normal Oropharynx - Neck Exam Neck Exam: Full ROM, Thyromegaly. absent: Tenderness - Respiratory Exam Respiratory Exam: Clear to Ausculation Bilateral, Rhonchi, NORMAL BREATHING PATTERN. absent: Rales, Wheezes - Cardiovascular Exam Cardiovascular Exam: REGULAR RHYTHM, +S1, +S2. absent: JVD, Murmur - GI/Abdominal Exam GI & Abdominal Exam: Soft. absent: Tenderness - Extremities Exam Extremities Exam: Full ROM, Pedal Edema (2+ mid galo to ankle) - Neurological Exam Neurological Exam: Alert, Awake, Oriented x3 - Psychiatric Exam Psychiatric exam: Normal Affect, Normal Mood - Skin Skin Exam: Normal Color, Warm Assessment and Plan - Assessment and Plan (Free Text) Assessment: 87 year old man with COPD exacerbation on solumdedrol, bronchodilators, abx Echo done: images reviewed by me: Normal LVEF, stage 1 DD, mild MR, TR, PI, mild LVH, normal wall motion, Mild with Vmax 1.9 m/s. > Continue supportive care for COPD bronchitis: clinically improved > Inc lasix to 20mg IV BID for better diuresis > NSVT: Mg was low replace and re-eval, continue metoprolol > No additional cardiac w/u needed at present, other than medical therapy. > PUD w/u if appropriate
[2018-04-21] MEDS ORDERED: Magnesium Sulfate 1 gm in D5W 1 GM/100 ML BAG IVPB ONE (13:45)
--- NOTE | 2018-04-21 15:26 | CP.PCM.PN ---
Subjective - Date & Time of Evaluation Date of Evaluation: 04/21/18 Time of Evaluation: 15:24 - Subjective Subjective: Patient seen and examined Overnight events noted Objective - Vital Signs/Intake and Output Vital Signs (last 24 hours): Temp Pulse Resp BP Pulse Ox 97.4 F L 57 L 20 121/68 94 L 04/21/18 07:10 04/21/18 07:10 04/21/18 07:10 04/21/18 09:55 04/21/18 07:10 Intake and Output: 04/21/18 04/21/18 06:59 18:59 Intake Total 770 Output Total 450 Balance 320 - Medications Medications: Current Medications Albuterol/Ipratropium (Duoneb 3 Mg/0.5 Mg (3 Ml) Ud) 3 ml INH RQ4 [facility] Last Admin: 04/21/18 11:17 Dose: 3 ml Bisacodyl (Dulcolax) 10 mg PO DAILY [facility] Last Admin: 04/21/18 09:45 Dose: Not Given Fluticasone/Vilanterol (Breo Ellipta 200-25 Mcg Inh) 1 puff INH RQD [place] Last Admin: 04/21/18 11:19 Dose: Not Given Furosemide (Lasix) 20 mg IVP ONCE ONE Stop: 04/21/18 18:01 Metronidazole (Flagyl) 500 mg in 100 mls @ 100 mls/hr IVPB Q8H [facility]; Protocol Last Admin: 04/21/18 07:57 Dose: 100 mls/hr Ceftriaxone Sodium 1 gm/ (Sodium Chloride) 100 mls @ 100 mls/hr IVPB DAILY [facility]; Protocol Last Admin: 04/21/18 09:36 Dose: 100 mls/hr Methylprednisolone (Solu-Medrol) 40 mg IVP DAILY [facility] Last Admin: 04/21/18 09:59 Dose: 40 mg Metoclopramide HCl (Reglan) 5 mg IVPB Q6H [facility] Last Admin: 04/21/18 07:55 Dose: 5 mg Metoprolol Tartrate (Lopressor) 25 mg PO BID [facility] Last Admin: 04/21/18 09:34 Dose: 25 mg Montelukast Sodium (Singulair) 10 mg PO HS [facility] Last Admin: 04/20/18 21:36 Dose: 10 mg Pantoprazole Sodium (Protonix Inj) 40 mg IVP Q12H [facility] Last Admin: 04/21/18 02:55 Dose: 40 mg - Labs Labs: 04/21/18 11:04 04/21/18 07:43 PT 12.3 SECONDS (9.7-12.2) H 04/19/18 11:54 INR 1.1 04/19/18 11:54 APTT 28 SECONDS (21-34) D 04/19/18 11:54 - Head Exam Head Exam: NORMAL INSPECTION - Eye Exam Eye Exam: Normal appearance - ENT Exam ENT Exam: Mucous Membranes Moist - Respiratory Exam Respiratory Exam: Clear to Ausculation Bilateral - Cardiovascular Exam Cardiovascular Exam: REGULAR RHYTHM, +S1, +S2 - GI/Abdominal Exam GI & Abdominal Exam: Soft, Normal Bowel Sounds - Extremities Exam Extremities Exam: Normal Inspection - Neurological Exam Neurological Exam: Alert, Oriented x3 Assessment and Plan (1) COPD exacerbation Status: Acute - Assessment and Plan (Free Text) Plan: Bronchodilators Breo Ellipta Cardiology and GI workup in progress Oxygen supplementation as needed DVT/GI prophylax
[2018-04-22] MEDS: Albuterol-Ipratrop 3 mg / 0.5 (3 ml) UD INH SCH ×5 (03:25→20:29)
[2018-04-22] MEDS: metroNIDAZOLE IV 500 mg/100 ml 500 MG/100 ML BAG IVPB SCH ×3 (08:05→22:36)
[2018-04-22] MEDS: MethylPREDNISolone 40 mg Vial IVP SCH (10:19)
[2018-04-22] MEDS: Bisacodyl 5mg EC Tab PO SCH (10:20)
[2018-04-22] MEDS: Fluticasone-Vilanterol 200/25mcg Diskus INH SCH (11:43)
--- NOTE | 2018-04-22 12:35 | CP.PCM.PN ---
Subjective - Date & Time of Evaluation Date of Evaluation: 04/22/18 Time of Evaluation: 12:32 - Subjective Subjective: pt seen and examined his chest is very congested still coughing sobhas new skin rsh buttocks Objective - Vital Signs/Intake and Output Vital Signs (last 24 hours): Temp Pulse Resp BP Pulse Ox 98.8 F 69 20 140/86 100 04/22/18 07:40 04/22/18 07:40 04/22/18 07:40 04/22/18 10:19 04/22/18 07:40 - Medications Medications: Current Medications Albuterol/Ipratropium (Duoneb 3 Mg/0.5 Mg (3 Ml) Ud) 3 ml INH RQ4 [facility] Last Admin: 04/22/18 11:42 Dose: 3 ml Bisacodyl (Dulcolax) 10 mg PO DAILY [facility] Last Admin: 04/22/18 10:20 Dose: 10 mg Fluticasone/Vilanterol (Breo Ellipta 200-25 Mcg Inh) 1 puff INH RQD [facility] Last Admin: 04/22/18 11:43 Dose: Not Given Hydrocortisone (Cortizone 0.5% Cream) 1 applic TOP BID [facility] Metronidazole (Flagyl) 500 mg in 100 mls @ 100 mls/hr IVPB Q8H [facility]; Protocol Last Admin: 04/22/18 08:05 Dose: 100 mls/hr Ceftriaxone Sodium 1 gm/ (Sodium Chloride) 100 mls @ 100 mls/hr IVPB DAILY [facility]; Protocol Last Admin: 04/22/18 10:20 Dose: 100 mls/hr Methylprednisolone (Solu-Medrol) 40 mg IVP DAILY [facility] Last Admin: 04/22/18 10:19 Dose: 40 mg Metoclopramide HCl (Reglan) 5 mg IVPB Q6H [facility] Last Admin: 04/22/18 10:19 Dose: 5 mg Metoprolol Tartrate (Lopressor) 25 mg PO BID [facility] Last Admin: 04/22/18 10:19 Dose: 25 mg Montelukast Sodium (Singulair) 10 mg PO HS [facility] Last Admin: 04/21/18 21:26 Dose: 10 mg Pantoprazole Sodium (Protonix Inj) 40 mg IVP Q12H [facility] Last Admin: 04/22/18 02:38 Dose: 40 mg - Labs Labs: 04/21/18 11:04 04/21/18 07:43 PT 12.3 SECONDS (9.7-12.2) H 04/19/18 11:54 INR 1.1 04/19/18 11:54 APTT 28 SECONDS (21-34) D 04/19/18 11:54 - Constitutional Appears: Non-toxic - Head Exam Head Exam: ATRAUMATIC - Eye Exam Eye Exam: Normal appearance Pupil Exam: NORMAL ACCOMODATION - ENT Exam ENT Exam: Mucous Membranes Moist - Respiratory Exam Respiratory Exam: Decreased Breath Sounds, Rales, Wheezes - Cardiovascular Exam Cardiovascular Exam: REGULAR RHYTHM - GI/Abdominal Exam GI & Abdominal Exam: Normal Bowel Sounds - Rectal Exam Rectal Exam: NORMAL INSPECTION - Extremities Exam Extremities Exam: Normal Inspection - Back Exam Additional comments: new red rash both buttocks - Neurological Exam Neurological Exam: Alert, Awake, Normal Gait, Oriented x3 - Psychiatric Exam Psychiatric exam: Normal Affect - Skin Skin Exam: Pallor Assessment and Plan - Assessment and Plan (Free Text) Assessment: acexa copd brochitis Plan: will order ct chest
--- NOTE | 2018-04-22 12:51 | CP.PCM.PN ---
Subjective - Date & Time of Evaluation Date of Evaluation: 04/22/18 Time of Evaluation: 12:48 - Subjective Subjective: Still congestion and bronchitic cough No fevers or chills still edema in ankles b/l no CP Objective - Vital Signs/Intake and Output Vital Signs (last 24 hours): Temp Pulse Resp BP Pulse Ox 98.8 F 69 20 140/86 100 04/22/18 07:40 04/22/18 07:40 04/22/18 07:40 04/22/18 10:19 04/22/18 07:40 - Medications Medications: Current Medications Albuterol/Ipratropium (Duoneb 3 Mg/0.5 Mg (3 Ml) Ud) 3 ml INH RQ4 [facility] Last Admin: 04/22/18 11:42 Dose: 3 ml Bisacodyl (Dulcolax) 10 mg PO DAILY [facility] Last Admin: 04/22/18 10:20 Dose: 10 mg Fluticasone/Vilanterol (Breo Ellipta 200-25 Mcg Inh) 1 puff INH RQD [facility] Last Admin: 04/22/18 11:43 Dose: Not Given Hydrocortisone (Cortizone 0.5% Cream) 1 applic TOP BID [facility] Metronidazole (Flagyl) 500 mg in 100 mls @ 100 mls/hr IVPB Q8H [facility]; Protocol Last Admin: 04/22/18 08:05 Dose: 100 mls/hr Ceftriaxone Sodium 1 gm/ (Sodium Chloride) 100 mls @ 100 mls/hr IVPB DAILY [facility]; Protocol Last Admin: 04/22/18 10:20 Dose: 100 mls/hr Methylprednisolone (Solu-Medrol) 40 mg IVP DAILY [facility] Last Admin: 04/22/18 10:19 Dose: 40 mg Metoclopramide HCl (Reglan) 5 mg IVPB Q6H [facility] Last Admin: 04/22/18 10:19 Dose: 5 mg Metoprolol Tartrate (Lopressor) 25 mg PO BID [facility] Last Admin: 04/22/18 10:19 Dose: 25 mg Montelukast Sodium (Singulair) 10 mg PO HS [facility] Last Admin: 04/21/18 21:26 Dose: 10 mg Pantoprazole Sodium (Protonix Inj) 40 mg IVP Q12H [facility] Last Admin: 04/22/18 02:38 Dose: 40 mg - Labs Labs: 04/21/18 11:04 04/21/18 07:43 PT 12.3 SECONDS (9.7-12.2) H 04/19/18 11:54 INR 1.1 04/19/18 11:54 APTT 28 SECONDS (21-34) D 04/19/18 11:54 - Constitutional Appears: No Acute Distress - Head Exam Head Exam: ATRAUMATIC, NORMAL INSPECTION, NORMOCEPHALIC - Eye Exam Eye Exam: EOMI, Normal appearance. absent: Scleral icterus - ENT Exam ENT Exam: Mucous Membranes Moist, Normal Oropharynx - Respiratory Exam Respiratory Exam: Decreased Breath Sounds (bases b/l), NORMAL BREATHING PATTERN. absent: Rales, Wheezes - Cardiovascular Exam Cardiovascular Exam: REGULAR RHYTHM, +S1, +S2. absent: +S4, Murmur - GI/Abdominal Exam GI & Abdominal Exam: Soft, Normal Bowel Sounds. absent: Tenderness, Organomegaly - Extremities Exam Extremities Exam: Normal Inspection, Pedal Edema (ankle edema 2+ B/L). absent: Calf Tenderness - Neurological Exam Neurological Exam: Alert, Awake, Oriented x3 - Skin Skin Exam: Normal Color, Warm Assessment and Plan - Assessment and Plan (Free Text) Assessment: 87 year old man with COPD exacerbation on solumdedrol, bronchodilators, abx Echo done: images reviewed by me: Normal LVEF, stage 1 DD, mild MR, TR, PI, mild LVH, normal wall motion, Mild with Vmax 1.9 m/s. > Continue supportive care for COPD bronchitis: clinically improved still congested with reduced BS at base > Inc lasix to 20mg IV BID for better diuresis > NSVT: Mg was low replace and re-eval, continue metoprolol : ----> Keep Mg .2.0 > No additional cardiac w/u needed at present, other than medical therapy. > GI w/u , GI prophylaxis > f/u CY chest results
--- NOTE | 2018-04-22 14:02 | CT ---
Date of service: 04/22/2018 PROCEDURE: CT Chest without contrast HISTORY: r/o aspiration / cough/ sob COMPARISON: Not available TECHNIQUE: Contiguous axial images were obtained through the chest without intravenous contrast enhancement. Sagittal and coronal reconstructions were performed. Radiation dose (DLP): 304.53 mGy-cm. This CT exam was performed using one or more of the following dose reduction techniques: Automated exposure control, adjustment of the mA and/or kV according to patient size, and/or use of iterative reconstruction technique. FINDINGS: LUNGS: Left lower lobe subsegmental atelectasis secondary to mass effect from hiatal hernia. Multifocal small patchy opacities in left upper lobe, nonspecific. Possible early pneumonia. Follow-up advised no infiltrate elsewhere. No pulmonary mass. MEDIASTINUM: No evidence of thoracic aortic aneurysm. Cardiomegaly. Coronary arterial calcification. No pericardial effusion. Main pulmonary artery unremarkable. No vascular congestion. No lymphadenopathy. There is atherosclerotic calcification of the thoracic aorta. There is a large paraesophageal hiatal hernia posterior to the heart. PLEURA: No pleural fluid. No pneumothorax. BONES: No fracture. No destructive lesion. UPPER ABDOMEN: Grossly unremarkable. OTHER FINDINGS: None. IMPRESSION: Multifocal patchy opacities in left upper lobe. Possible early pneumonia large hiatal hernia. Left lower lobe subsegmental atelectasis secondary to this hiatal hernia. No other acute abnormality.
--- NOTE | 2018-04-22 15:13 | CP.PCM.PN ---
Objective - Vital Signs/Intake and Output Vital Signs (last 24 hours): Temp Pulse Resp BP Pulse Ox 98.8 F 69 20 136/87 100 04/22/18 07:40 04/22/18 07:40 04/22/18 07:40 04/22/18 13:23 04/22/18 07:40 - Medications Medications: Current Medications Acetaminophen (Tylenol 325mg Tab) 650 mg PO Q6 PRN PRN Reason: Headache Albuterol/Ipratropium (Duoneb 3 Mg/0.5 Mg (3 Ml) Ud) 3 ml INH RQ4 [place] Last Admin: 04/22/18 11:42 Dose: 3 ml Bisacodyl (Dulcolax) 10 mg PO DAILY [facility] Last Admin: 04/22/18 10:20 Dose: 10 mg Fluticasone/Vilanterol (Breo Ellipta 200-25 Mcg Inh) 1 puff INH RQD [place] Last Admin: 04/22/18 11:43 Dose: Not Given Furosemide (Lasix) 20 mg IVP BID [facility] Last Admin: 04/22/18 13:23 Dose: 20 mg Hydrocortisone (Cortizone 0.5% Cream) 1 applic TOP BID [facility] Metronidazole (Flagyl) 500 mg in 100 mls @ 100 mls/hr IVPB Q8H [place]; Protocol Last Admin: 04/22/18 14:53 Dose: 100 mls/hr Ceftriaxone Sodium 1 gm/ (Sodium Chloride) 100 mls @ 100 mls/hr IVPB DAILY [facility]; Protocol Last Admin: 04/22/18 10:20 Dose: 100 mls/hr Azithromycin 500 mg/ Sodium (Chloride) 250 mls @ 250 mls/hr IVPB DAILY@1800 [place]; Protocol Methylprednisolone (Solu-Medrol) 40 mg IVP DAILY [facility] Last Admin: 04/22/18 10:19 Dose: 40 mg Metoclopramide HCl (Reglan) 5 mg IVPB Q6H [place] Last Admin: 04/22/18 10:19 Dose: 5 mg Metoprolol Tartrate (Lopressor) 25 mg PO BID [facility] Last Admin: 04/22/18 10:19 Dose: 25 mg Montelukast Sodium (Singulair) 10 mg PO HS [facility] Last Admin: 04/21/18 21:26 Dose: 10 mg Pantoprazole Sodium (Protonix Inj) 40 mg IVP Q12H [place] Last Admin: 04/22/18 02:38 Dose: 40 mg - Labs Labs: 04/21/18 11:04 04/21/18 07:43 PT 12.3 SECONDS (9.7-12.2) H 04/19/18 11:54 INR 1.1 04/19/18 11:54 APTT 28 SECONDS (21-34) D 04/19/18 11:54 Assessment and Plan (1) COPD exacerbation Status: Acute
[2018-04-22] MEDS: Azithromycin 500 MG in Sodium Chloride 0.9% 250 ML IVPB SCH (17:33)
--- NOTE | 2018-04-22 17:55 | PN ---
DATE: 04/22/2018 LOCATION: 657, bed A. SUBJECTIVE: This is an 87-year-old male, seen and examined in rounds without significant clinical changes or reported active bleeding this morning. Somewhat tolerating oral intake, but is still inadequate. The entire chart is reviewed including but not limited to the most recent lab and radiology study results, current and the previous medication list, current and the previous medical events and the latest CBC reported to be within normal limit as well as cancer markers as well as lipase, amylase level reported to be normal. The patient had chest CT scan today, official report is still pending. PHYSICAL EXAMINATION: GENERAL: An 87-year-old male, awake, alert. VITAL SIGNS: Afebrile with pulse of 72, respiratory rate 20-22, blood pressure of 136/78. HEENT: Showed pale dry oral mucoid membrane. Nonicteric sclerae. LUNGS: Few scattered crepitation. Decreased air entry at bases. HEART: Positive S1 and S2. ABDOMEN: Soft with slight distention and mild generalized tenderness. No mass or organomegaly. No rebound tenderness or guarding. EXTREMITIES: Without significant clubbing, cyanosis or edema. NEUROLOGIC: No reported new neurological deficit, sensory or motor. IMPRESSION: 1. Recent history of nausea and vomiting of coffee-ground material with re-exacerbation of peptic ulcer disease associated with large hiatus hernia. 2. Re-exacerbation of chronic obstructive pulmonary disease. 3. Recent history of anemia, most likely secondary to above. 4. Known history of, but not limited to, hypertension, coronary artery disease status post cardiac stent insertion as well as aspiration pneumonia by recent history . SUGGESTIONS: 1. Continue current management. 2. Repeat stool for occult blood. 3. Antireflux measure. 4. Further recommendations to follow. Johann Guerra MD
[2018-04-23] MEDS: Albuterol-Ipratrop 3 mg / 0.5 (3 ml) UD INH SCH ×7 (00:17→23:49)
[2018-04-23] MEDS: metroNIDAZOLE IV 500 mg/100 ml 500 MG/100 ML BAG IVPB SCH ×3 (06:54→22:46)
[2018-04-23 07:41] LABS: BLOOD UREA NITROGEN 15 mg/dL (9-20); CALCIUM 8.2 mg/dl (8.6-10.4); GFR NON-AFRICAN AMERICAN > 60
[2018-04-23] MEDS: Fluticasone-Vilanterol 200/25mcg Diskus INH SCH (07:58)
[2018-04-23] MEDS: MethylPREDNISolone 40 mg Vial IVP SCH (09:15)
[2018-04-23] MEDS: Bisacodyl 5mg EC Tab PO SCH (09:16)
--- NOTE | 2018-04-23 10:31 | CP.PCM.PN ---
Subjective - Date & Time of Evaluation Date of Evaluation: 04/23/18 Time of Evaluation: 10:31 - Subjective Subjective: + Cough No fevers VZV rash back (contact precautions) NO CP LE compression stockings on edema improved Objective - Vital Signs/Intake and Output Vital Signs (last 24 hours): Temp Pulse Resp BP Pulse Ox 97.8 F 73 20 115/67 95 04/23/18 07:05 04/23/18 08:40 04/23/18 07:05 04/23/18 09:15 04/23/18 07:05 Intake and Output: 04/23/18 04/23/18 06:59 18:59 Intake Total 120 Balance 120 - Medications Medications: Current Medications Acetaminophen (Tylenol 325mg Tab) 650 mg PO Q6 PRN PRN Reason: Headache Last Admin: 04/22/18 15:14 Dose: 650 mg Albuterol/Ipratropium (Duoneb 3 Mg/0.5 Mg (3 Ml) Ud) 3 ml INH RQ4 [facility] Last Admin: 04/23/18 07:58 Dose: 3 ml Bisacodyl (Dulcolax) 10 mg PO DAILY [facility] Last Admin: 04/23/18 09:16 Dose: 10 mg Fluticasone/Vilanterol (Breo Ellipta 200-25 Mcg Inh) 1 puff INH RQD [facility] Last Admin: 04/23/18 07:58 Dose: Not Given Furosemide (Lasix) 20 mg IVP BID [facility] Last Admin: 04/23/18 09:15 Dose: 20 mg Hydrocortisone (Cortizone 0.5% Cream) 1 applic TOP BID [facility] Last Admin: 04/23/18 10:25 Dose: 1 applic Metronidazole (Flagyl) 500 mg in 100 mls @ 100 mls/hr IVPB Q8H [facility]; Protocol Last Admin: 04/23/18 06:54 Dose: 100 mls/hr Ceftriaxone Sodium 1 gm/ (Sodium Chloride) 100 mls @ 100 mls/hr IVPB DAILY [facility]; Protocol Last Admin: 04/23/18 09:14 Dose: 100 mls/hr Azithromycin 500 mg/ Sodium (Chloride) 250 mls @ 250 mls/hr IVPB DAILY@1800 [place]; Protocol Last Admin: 04/22/18 17:33 Dose: 250 mls/hr Methylprednisolone (Solu-Medrol) 40 mg IVP DAILY [facility] Last Admin: 04/23/18 09:15 Dose: 40 mg Metoclopramide HCl (Reglan) 5 mg IVPB Q6H [facility] Last Admin: 04/23/18 09:15 Dose: 5 mg Metoprolol Tartrate (Lopressor) 25 mg PO BID [facility] Last Admin: 04/23/18 09:15 Dose: 25 mg Montelukast Sodium (Singulair) 10 mg PO HS [facility] Last Admin: 04/22/18 21:08 Dose: 10 mg Pantoprazole Sodium (Protonix Inj) 40 mg IVP Q12H [facility] Last Admin: 04/23/18 06:31 Dose: Not Given - Labs Labs: 04/21/18 11:04 04/23/18 07:00 PT 12.3 SECONDS (9.7-12.2) H 04/19/18 11:54 INR 1.1 04/19/18 11:54 APTT 28 SECONDS (21-34) D 04/19/18 11:54 - Constitutional Appears: No Acute Distress - Head Exam Head Exam: ATRAUMATIC, NORMAL INSPECTION, NORMOCEPHALIC - Eye Exam Eye Exam: EOMI, Normal appearance. absent: Scleral icterus - ENT Exam ENT Exam: Mucous Membranes Moist - Neck Exam Neck Exam: Full ROM, Normal Inspection. absent: Tenderness - Respiratory Exam Respiratory Exam: Rhonchi, NORMAL BREATHING PATTERN. absent: Clear to Ausculation Bilateral (coarse BS's B/L), Rales, Wheezes - Cardiovascular Exam Cardiovascular Exam: REGULAR RHYTHM, +S1, +S2. absent: Murmur - GI/Abdominal Exam GI & Abdominal Exam: Soft, Normal Bowel Sounds. absent: Tenderness - Extremities Exam Extremities Exam: Normal Inspection, Pedal Edema. absent: Calf Tenderness - Neurological Exam Neurological Exam: Alert, Awake, Oriented x3 - Psychiatric Exam Psychiatric exam: Normal Affect, Normal Mood - Skin Skin Exam: Normal Color, Warm Assessment and Plan - Assessment and Plan (Free Text) Assessment: 87 year old man with COPD exacerbation on solumdedrol, bronchodilators, abx Echo done: images reviewed by me: Normal LVEF, stage 1 DD, mild MR, TR, PI, mild LVH, normal wall motion, Mild with Vmax 1.9 m/s. > Continue supportive care for COPD bronchitis: clinically improved still conge sted with reduced BS at base > Inc lasix to 20mg IV BID for better diuresis > NSVT: Mg was low replace and re-eval, continue metoprolol : ----> Keep Mg .2.0 > Low K+: replace and re-eval > No additional cardiac w/u needed at present, other than medical therapy. > GI w/u , GI prophylaxis > CT chest results suggest patchy opacities LAI: ?PNA > VZV rash on back Supportive care
--- NOTE | 2018-04-23 14:57 | CP.PCM.PN ---
Subjective - Date & Time of Evaluation Date of Evaluation: 04/23/18 Time of Evaluation: 14:55 - Subjective Subjective: Patient is seen and examined No events overnight CT chest reviewed Objective - Vital Signs/Intake and Output Vital Signs (last 24 hours): Temp Pulse Resp BP Pulse Ox 97.8 F 73 20 115/67 95 04/23/18 07:05 04/23/18 08:40 04/23/18 07:05 04/23/18 09:15 04/23/18 07:05 Intake and Output: 04/23/18 04/23/18 06:59 18:59 Intake Total 120 Output Total 200 Balance 120 -200 - Medications Medications: Current Medications Acetaminophen (Tylenol 325mg Tab) 650 mg PO Q6 PRN PRN Reason: Headache Last Admin: 04/22/18 15:14 Dose: 650 mg Acyclovir (Zovirax) 800 mg PO 5XD [place]; Protocol Last Admin: 04/23/18 14:45 Dose: 800 mg Albuterol/Ipratropium (Duoneb 3 Mg/0.5 Mg (3 Ml) Ud) 3 ml INH RQ4 [place] Last Admin: 04/23/18 11:25 Dose: 3 ml Bisacodyl (Dulcolax) 10 mg PO DAILY [place] Last Admin: 04/23/18 09:16 Dose: 10 mg Fluticasone/Vilanterol (Breo Ellipta 200-25 [facility]g Inh) 1 puff INH RQD [place] Last Admin: 04/23/18 07:58 Dose: Not Given Furosemide (Lasix) 20 mg IVP BID [place] Last Admin: 04/23/18 09:15 Dose: 20 mg Hydrocortisone (Cortizone 0.5% Cream) 1 applic TOP BID [facility] Last Admin: 04/23/18 10:25 Dose: 1 applic Metronidazole (Flagyl) 500 mg in 100 mls @ 100 mls/hr IVPB Q8H [place]; Protocol Last Admin: 04/23/18 14:45 Dose: 100 mls/hr Ceftriaxone Sodium 1 gm/ (Sodium Chloride) 100 mls @ 100 mls/hr IVPB DAILY [place]; Protocol Last Admin: 04/23/18 09:14 Dose: 100 mls/hr Azithromycin 500 mg/ Sodium (Chloride) 250 mls @ 250 mls/hr IVPB DAILY@1800 [place]; Protocol Last Admin: 04/22/18 17:33 Dose: 250 mls/hr Methylprednisolone (Solu-Medrol) 40 mg IVP DAILY [facility] Last Admin: 04/23/18 09:15 Dose: 40 mg Metoclopramide HCl (Reglan) 5 mg IVPB Q6H [facility] Last Admin: 04/23/18 14:45 Dose: 5 mg Metoprolol Tartrate (Lopressor) 25 mg PO BID [facility] Last Admin: 04/23/18 09:15 Dose: 25 mg Montelukast Sodium (Singulair) 10 mg PO HS [facility] Last Admin: 04/22/18 21:08 Dose: 10 mg Pantoprazole Sodium (Protonix Inj) 40 mg IVP Q12H [facility] Last Admin: 04/23/18 14:45 Dose: 40 mg - Labs Labs: 04/21/18 11:04 04/23/18 07:00 PT 12.3 SECONDS (9.7-12.2) H 04/19/18 11:54 INR 1.1 04/19/18 11:54 APTT 28 SECONDS (21-34) D 04/19/18 11:54 - Head Exam Head Exam: NORMAL INSPECTION - Eye Exam Eye Exam: Normal appearance - ENT Exam ENT Exam: Mucous Membranes Moist - Respiratory Exam Respiratory Exam: Clear to Ausculation Bilateral - Cardiovascular Exam Cardiovascular Exam: REGULAR RHYTHM, +S1, +S2 - GI/Abdominal Exam GI & Abdominal Exam: Soft, Normal Bowel Sounds - Extremities Exam Extremities Exam: Normal Inspection - Neurological Exam Neurological Exam: Alert, Oriented x3 - Psychiatric Exam Psychiatric exam: Normal Affect, Normal Mood Assessment and Plan (1) COPD exacerbation Status: Acute (2) Pneumonia Status: Acute - Assessment and Plan (Free Text) Plan: Breo Ellipta 200/25 mcg 1 puff daily Bronchodilators Antibiotics Solu-Medrol Lasix DVT/GI prophylaxis
--- NOTE | 2018-04-23 16:30 | CP.PCM.PN ---
Subjective - Date & Time of Evaluation Date of Evaluation: 04/23/18 Time of Evaluation: 15:30 - Subjective Subjective: dictated Objective - Vital Signs/Intake and Output Vital Signs (last 24 hours): Temp Pulse Resp BP Pulse Ox 97.4 F L 74 20 126/83 97 04/23/18 15:35 04/23/18 15:35 04/23/18 15:35 04/23/18 15:35 04/23/18 15:35 Intake and Output: 04/23/18 04/23/18 06:59 18:59 Intake Total 120 Output Total 200 Balance 120 -200 - Medications Medications: Current Medications Acetaminophen (Tylenol 325mg Tab) 650 mg PO Q6 PRN PRN Reason: Headache Last Admin: 04/22/18 15:14 Dose: 650 mg Acyclovir (Zovirax) 800 mg PO 5XD [place]; Protocol Last Admin: 04/23/18 14:45 Dose: 800 mg Albuterol/Ipratropium (Duoneb 3 Mg/0.5 Mg (3 Ml) Ud) 3 ml INH RQ4 [place] Last Admin: 04/23/18 16:08 Dose: 3 ml Bisacodyl (Dulcolax) 10 mg PO DAILY [place] Last Admin: 04/23/18 09:16 Dose: 10 mg Fluticasone/Vilanterol (Breo Ellipta 200-25 [facility] In[facility]) 1 puff INH RQD [place] Last Admin: 04/23/18 07:58 Dose: Not Given Furosemide (Lasix) 20 mg IVP BID [facility] Last Admin: 04/23/18 09:15 Dose: 20 mg Hydrocortisone (Cortizone 0.5% Cream) 1 applic TOP BID [facility] Last Admin: 04/23/18 10:25 Dose: 1 applic Metronidazole (Flagyl) 500 mg in 100 mls @ 100 mls/hr IVPB Q8H [place]; Protocol Last Admin: 04/23/18 14:45 Dose: 100 mls/hr Ceftriaxone Sodium 1 gm/ (Sodium Chloride) 100 mls @ 100 mls/hr IVPB DAILY [facility]; Protocol Last Admin: 04/23/18 09:14 Dose: 100 mls/hr Azithromycin 500 mg/ Sodium (Chloride) 250 mls @ 250 mls/hr IVPB DAILY@1800 [place]; Protocol Last Admin: 04/22/18 17:33 Dose: 250 mls/hr Methylprednisolone (Solu-Medrol) 40 mg IVP DAILY [facility] Last Admin: 04/23/18 09:15 Dose: 40 mg Metoclopramide HCl (Reglan) 5 mg IVPB Q6H [facility] Last Admin: 04/23/18 14:45 Dose: 5 mg Metoprolol Tartrate (Lopressor) 25 mg PO BID [facility] Last Admin: 04/23/18 09:15 Dose: 25 mg Montelukast Sodium (Singulair) 10 mg PO HS [facility] Last Admin: 04/22/18 21:08 Dose: 10 mg Pantoprazole Sodium (Protonix Inj) 40 mg IVP Q12H [facility] Last Admin: 04/23/18 14:45 Dose: 40 mg - Labs Labs: 04/21/18 11:04 04/23/18 07:00 PT 12.3 SECONDS (9.7-12.2) H 04/19/18 11:54 INR 1.1 04/19/18 11:54 APTT 28 SECONDS (21-34) D 04/19/18 11:54
--- NOTE | 2018-04-23 16:39 | CP.PCM.CON ---
History of Present Illness - History of Present Illness History of Present Illness: dictated Past Patient History - Infectious Disease Hx of Infectious Diseases: None - Past Medical History & Family History Past Medical History?: Yes - Past Social History Smoking Status: Never Smoked - CARDIAC Hx Hypertension: Yes - PULMONARY Hx Asthma: Yes - NEUROLOGICAL Hx Neurological Disorder: No - HEENT Hx HEENT Problems: No - RENAL Hx Chronic Kidney Disease: No - ENDOCRINE/METABOLIC Hx Endocrine Disorders: No - HEMATOLOGICAL/ONCOLOGICAL Hx Blood Disorders: No - INTEGUMENTARY Hx Dermatological Problems: No - MUSCULOSKELETAL/RHEUMATOLOGICAL Hx Falls: No - GASTROINTESTINAL Hx Constipation: Yes - GENITOURINARY/GYNECOLOGICAL Hx Genitourinary Disorders: No - PSYCHIATRIC Hx Substance Use: No - SURGICAL HISTORY Hx Coronary Stent: Yes - ANESTHESIA Hx Anesthesia: Yes Hx Anesthesia Reactions: No Meds Allergies/Adverse Reactions: Allergies Allergy/AdvReac Type Severity Reaction Status Date / Time No Known Allergies Allergy Unverified 04/18/18 02:43 - Medications Medications: Current Medications Acetaminophen (Tylenol 325mg Tab) 650 mg PO Q6 PRN PRN Reason: Headache Last Admin: 04/22/18 15:14 Dose: 650 mg Albuterol/Ipratropium (Duoneb 3 Mg/0.5 Mg (3 Ml) Ud) 3 ml INH RQ4 [facility] Last Admin: 04/23/18 16:08 Dose: 3 ml Bisacodyl (Dulcolax) 10 mg PO DAILY [facility] Last Admin: 04/23/18 09:16 Dose: 10 mg Fluticasone/Vilanterol (Breo Ellipta 200-25 Mcg Inh) 1 puff INH RQD [facility] Last Admin: 04/23/18 07:58 Dose: Not Given Furosemide (Lasix) 20 mg IVP BID [facility] Last Admin: 04/23/18 09:15 Dose: 20 mg Hydrocortisone (Cortizone 0.5% Cream) 1 applic TOP BID [facility] Last Admin: 04/23/18 10:25 Dose: 1 applic Metronidazole (Flagyl) 500 mg in 100 mls @ 100 mls/hr IVPB Q8H [facility]; Protocol Last Admin: 04/23/18 14:45 Dose: 100 mls/hr Ceftriaxone Sodium 1 gm/ (Sodium Chloride) 100 mls @ 100 mls/hr IVPB DAILY [facility]; Protocol Last Admin: 04/23/18 09:14 Dose: 100 mls/hr Azithromycin 500 mg/ Sodium (Chloride) 250 mls @ 250 mls/hr IVPB DAILY@1800 [place]; Protocol Last Admin: 04/22/18 17:33 Dose: 250 mls/hr Methylprednisolone (Solu-Medrol) 40 mg IVP DAILY [facility] Last Admin: 04/23/18 09:15 Dose: 40 mg Metoclopramide HCl (Reglan) 5 mg IVPB Q6H [facility] Last Admin: 04/23/18 14:45 Dose: 5 mg Metoprolol Tartrate (Lopressor) 25 mg PO BID [facility] Last Admin: 04/23/18 09:15 Dose: 25 mg Montelukast Sodium (Singulair) 10 mg PO HS [facility] Last Admin: 04/22/18 21:08 Dose: 10 mg Pantoprazole Sodium (Protonix Inj) 40 mg IVP Q12H [facility] Last Admin: 04/23/18 14:45 Dose: 40 mg Valacyclovir HCl (Valtrex) 500 mg PO TID [facility]; Protocol Results - Vital Signs Recent Vital Signs: Last Vital Signs Temp 97.4 F L 04/23/18 15:35 Pulse 74 04/23/18 15:35 Resp 20 04/23/18 15:35 BP 126/83 04/23/18 15:35 Pulse Ox 97 04/23/18 15:35 - Labs Result Diagrams: 04/21/18 11:04 04/23/18 07:00 Labs: Laboratory Results - last 24 hr 04/22/18 04/23/18 13:45 07:00 Sodium 132 Potassium 3.5 L Chloride 94 L Carbon Dioxide 33 H Anion Gap 8 L BUN 15 Creatinine 0.9 Est GFR ( Amer) > 60 Est GFR (Non-Af Amer) > 60 Random Glucose 91 D Calcium 8.2 L VZV IgG Antibody Positive
--- NOTE | 2018-04-23 17:46 | CP.PCM.PN ---
Subjective - Date & Time of Evaluation Date of Evaluation: 04/23/18 Time of Evaluation: 17:44 - Subjective Subjective: No vomiting, tolerating diet. Complains of loose, black stool. Having trouble with breathing. Objective - Vital Signs/Intake and Output Vital Signs (last 24 hours): Temp Pulse Resp BP Pulse Ox 97.4 F L 76 20 126/83 97 04/23/18 15:35 04/23/18 16:00 04/23/18 15:35 04/23/18 15:35 04/23/18 15:35 Intake and Output: 04/23/18 04/23/18 06:59 18:59 Intake Total 120 Output Total 200 Balance 120 -200 - Medications Medications: Current Medications Acetaminophen (Tylenol 325mg Tab) 650 mg PO Q6 PRN PRN Reason: Headache Last Admin: 04/22/18 15:14 Dose: 650 mg Albuterol/Ipratropium (Duoneb 3 Mg/0.5 Mg (3 Ml) Ud) 3 ml INH RQ4 [facility] Last Admin: 04/23/18 16:08 Dose: 3 ml Bisacodyl (Dulcolax) 10 mg PO DAILY [facility] Last Admin: 04/23/18 09:16 Dose: 10 mg Fluticasone/Vilanterol (Breo Ellipta 200-25 Mcg Inh) 1 puff INH RQD [place] Last Admin: 04/23/18 07:58 Dose: Not Given Furosemide (Lasix) 20 mg IVP BID [facility] Last Admin: 04/23/18 09:15 Dose: 20 mg Hydrocortisone (Cortizone 0.5% Cream) 1 applic TOP BID [facility] Last Admin: 04/23/18 10:25 Dose: 1 applic Metronidazole (Flagyl) 500 mg in 100 mls @ 100 mls/hr IVPB Q8H [place]; Protocol Last Admin: 04/23/18 14:45 Dose: 100 mls/hr Ceftriaxone Sodium 1 gm/ (Sodium Chloride) 100 mls @ 100 mls/hr IVPB DAILY [facility]; Protocol Last Admin: 04/23/18 09:14 Dose: 100 mls/hr Azithromycin 500 mg/ Sodium (Chloride) 250 mls @ 250 mls/hr IVPB DAILY@1800 [place]; Protocol Last Admin: 04/22/18 17:33 Dose: 250 mls/hr Methylprednisolone (Solu-Medrol) 40 mg IVP DAILY [facility] Last Admin: 04/23/18 09:15 Dose: 40 mg Metoclopramide HCl (Reglan) 5 mg IVPB Q6H [facility] Last Admin: 04/23/18 14:45 Dose: 5 mg Metoprolol Tartrate (Lopressor) 25 mg PO BID [facility] Last Admin: 04/23/18 09:15 Dose: 25 mg Montelukast Sodium (Singulair) 10 mg PO HS [facility] Last Admin: 04/22/18 21:08 Dose: 10 mg Pantoprazole Sodium (Protonix Inj) 40 mg IVP Q12H [facility] Last Admin: 04/23/18 14:45 Dose: 40 mg Valacyclovir HCl (Valtrex) 500 mg PO TID [facility]; Protocol - Labs Labs: 04/21/18 11:04 04/23/18 07:00 PT 12.3 SECONDS (9.7-12.2) H 04/19/18 11:54 INR 1.1 04/19/18 11:54 APTT 28 SECONDS (21-34) D 04/19/18 11:54 - Constitutional Appears: Non-toxic, No Acute Distress - Head Exam Head Exam: ATRAUMATIC, NORMAL INSPECTION - Eye Exam Eye Exam: EOMI, Normal appearance - Respiratory Exam Respiratory Exam: Clear to Ausculation Bilateral, NORMAL BREATHING PATTERN - Cardiovascular Exam Cardiovascular Exam: REGULAR RHYTHM, +S1, +S2 - GI/Abdominal Exam GI & Abdominal Exam: Soft, Normal Bowel Sounds. absent: Tenderness - Psychiatric Exam Psychiatric exam: Normal Affect, Normal Mood - Skin Skin Exam: Dry, Normal Color Assessment and Plan - Assessment and Plan (Free Text) Assessment: #Large hiatal hernia, likely type III, symptomatic #Vomiting, resolved #Esophagitis, gastritis, duodenitis #Diarrhea PLAN: -Continue liquid diet, tolerating. -I advised to avoid meats or tough/chewy foods (spinach, muscles). Only liquids and soft food (applesauce, mashed potatoes, yogurt) -Continue PPI daily for GERD management. -Monitor Hb. No obvious active bleeding. -No planned endoscopic procedures at that time. -Check c.diff for water diarrhea. Case discussed with Dr. Whyte, see attestation.
--- NOTE | 2018-04-23 18:18 | CP.PCM.PN ---
Subjective - Date & Time of Evaluation Date of Evaluation: 04/23/18 Time of Evaluation: 18:15 - Subjective Subjective: p-t has less cough has rash back possible h zoster ct chest positive infiltrate pnumonia atelectasis Objective - Vital Signs/Intake and Output Vital Signs (last 24 hours): Temp Pulse Resp BP Pulse Ox 97.4 F L 76 20 126/83 97 04/23/18 15:35 04/23/18 16:00 04/23/18 15:35 04/23/18 15:35 04/23/18 15:35 Intake and Output: 04/23/18 04/23/18 06:59 18:59 Intake Total 120 Output Total 200 Balance 120 -200 - Medications Medications: Current Medications Acetaminophen (Tylenol 325mg Tab) 650 mg PO Q6 PRN PRN Reason: Headache Last Admin: 04/22/18 15:14 Dose: 650 mg Albuterol/Ipratropium (Duoneb 3 Mg/0.5 Mg (3 Ml) Ud) 3 ml INH RQ4 [facility] Last Admin: 04/23/18 16:08 Dose: 3 ml Bisacodyl (Dulcolax) 10 mg PO DAILY [facility] Last Admin: 04/23/18 09:16 Dose: 10 mg Fluticasone/Vilanterol (Breo Ellipta 200-25 [facility]g Inh) 1 puff INH RQD [facility] Last Admin: 04/23/18 07:58 Dose: Not Given Furosemide (Lasix) 20 mg IVP BID [facility] Last Admin: 04/23/18 09:15 Dose: 20 mg Hydrocortisone (Cortizone 0.5% Cream) 1 applic TOP BID [facility] Last Admin: 04/23/18 10:25 Dose: 1 applic Metronidazole (Flagyl) 500 mg in 100 mls @ 100 mls/hr IVPB Q8H [facility]; Protocol Last Admin: 04/23/18 14:45 Dose: 100 mls/hr Ceftriaxone Sodium 1 gm/ (Sodium Chloride) 100 mls @ 100 mls/hr IVPB DAILY [facility]; Protocol Last Admin: 04/23/18 09:14 Dose: 100 mls/hr Azithromycin 500 mg/ Sodium (Chloride) 250 mls @ 250 mls/hr IVPB DAILY@1800 [facility]; Protocol Last Admin: 04/22/18 17:33 Dose: 250 mls/hr Methylprednisolone (Solu-Medrol) 40 mg IVP DAILY [facility] Last Admin: 04/23/18 09:15 Dose: 40 mg Metoclopramide HCl (Reglan) 5 mg IVPB Q6H [facility] Last Admin: 04/23/18 14:45 Dose: 5 mg Metoprolol Tartrate (Lopressor) 25 mg PO BID [facility] Last Admin: 04/23/18 09:15 Dose: 25 mg Montelukast Sodium (Singulair) 10 mg PO HS [facility] Last Admin: 04/22/18 21:08 Dose: 10 mg Pantoprazole Sodium (Protonix Inj) 40 mg IVP Q12H [facility] Last Admin: 04/23/18 14:45 Dose: 40 mg Valacyclovir HCl (Valtrex) 500 mg PO TID [facility]; Protocol - Labs Labs: 04/21/18 11:04 04/23/18 07:00 PT 12.3 SECONDS (9.7-12.2) H 04/19/18 11:54 INR 1.1 04/19/18 11:54 APTT 28 SECONDS (21-34) D 04/19/18 11:54 - Constitutional Appears: Non-toxic - Head Exam Head Exam: ATRAUMATIC - Eye Exam Eye Exam: Normal appearance Pupil Exam: NORMAL ACCOMODATION - ENT Exam ENT Exam: Mucous Membranes Moist - Neck Exam Neck Exam: Full ROM - Respiratory Exam Respiratory Exam: Decreased Breath Sounds - Cardiovascular Exam Cardiovascular Exam: REGULAR RHYTHM - GI/Abdominal Exam GI & Abdominal Exam: Normal Bowel Sounds - Rectal Exam Additional comments: rash buttock - Extremities Exam Extremities Exam: Normal Inspection - Back Exam Back Exam: NORMAL INSPECTION - Neurological Exam Neurological Exam: Normal Gait - Psychiatric Exam Psychiatric exam: Normal Affect - Skin Skin Exam: Normal Color Assessment and Plan - Assessment and Plan (Free Text) Assessment: rash buttock pnumonia atlectasis Plan: as ordered
[2018-04-23] MEDS: Azithromycin 500 MG in Sodium Chloride 0.9% 250 ML IVPB SCH (18:25)
[2018-04-24] MEDS: metroNIDAZOLE IV 500 mg/100 ml 500 MG/100 ML BAG IVPB SCH ×2 (00:25→06:40)
[2018-04-24] MEDS: Albuterol-Ipratrop 3 mg / 0.5 (3 ml) UD INH SCH ×5 (03:15→19:14)
--- NOTE | 2018-04-24 04:55 | CON ---
DATE: 04/23/2018 INFECTIOUS DISEASE CONSULTATION REQUESTED BY: Comfort Ramires MD HISTORY OF PRESENT ILLNESS: This patient I am asked to see because he is positive for zoster, varicella, IgM came out positive and he has lesions on his buttock. He was placed in isolation. He is on droplet as well as contact isolation at this time. The patient also tells me that he was here before. He went back to home and then came back the same day. He suffers from respiratory issues, having COPD with GI bleed. Has been having dyspnea and wheezing and has intermittent dyspnea, cough, chest tightness and wheezing. He is being treated for that with IV antibiotics, and he is feeling little better but still coughing. He has no fever, no chills. He does have a rash on his back. He does not remember how long he has had it. He is not allergic to any medicine. He also was found to have a hiatal hernia. MEDICATIONS: Include at the present time, the BULB TESTER had put him on acyclovir, but I decreased the dose and put him on Valtrex. He is on Tylenol, albuterol, DuoNeb. He is on Zithromax. He is on Colace, Rocephin, fluticasone inhaler, furosemide, hydrocortisone application, methylprednisolone 40 mg IV push, metoclopramide, montelukast, pantoprazole (Protonix). We just started valacyclovir. PAST MEDICAL HISTORY: Cardiac gomez, he has hypertension. Pulmonary, he has asthma. No neurological problems. No HEENT problems. No history of fall. He does have history of constipation. PAST SURGICAL HISTORY: Coronary stents. ALLERGIES: HE IS NOT ALLERGIC TO ANY MEDICINE. SOCIAL HISTORY: He denies any smoking history. Denies any substance abuse. REVIEW OF SYSTEMS: He says he is feeling a little better and less cough. He has a rash which is herpes zoster. He still has a CT chest done which was positive for infiltrate, pneumonia and atelectasis. We will review his old chart and see what is happening with him. PHYSICAL EXAMINATION: VITAL SIGNS: Now, I find a temperature of 97.4, pulse 74, blood pressure is 126/83, respirations are 20. GENERAL: He is alert, awake and oriented. HEENT: Head is atraumatic, normocephalic. Pupils are reacting to light and normal accommodation. Tongue is moist. NECK: Supple. JVP is flat at this time. LUNGS: There are decreased breath sounds bilaterally, occasional rhonchi, otherwise clear. HEART: S1 and S2 are regular. No murmurs appreciated. ABDOMEN: Soft, nontender. No guarding. No rigidity present. SKIN: In the buttock area, he has a rash present which is vesicular which has now matted together. He may have scratched it. LABORATORY DATA: Labs show white count is 5.5, hemoglobin 12.4, hematocrit 37.9, platelet count is 175. Sodium is 132, potassium 3.5, chloride 94, CO2 is 33, BUN is 15, creatinine 0.9. Legionella is negative. VZ IgG came out positive. ASSESSMENT AND PLAN: He does have a rash on the buttock, so we will give him Valtrex for seven days. He had a CT chest. CT chest shows no evidence of thoracic aortic aneurysm, cardiomegaly, coronary artery calcification. No pericardial effusion, main pulmonary artery unremarkable. No vascular congestion. No lymphadenopathy. Multifocal patchy opacity in the left upper lobe, possibly early pneumonia, large hiatal hernia, left lower segmental atelectasis secondary to hiatal hernia. No other acute abnormality. Since he is in isolation and has left upper lobe opacity, I would just check for Gold QuantiFERON test and see what the pulmonary evaluation. Continues antibiotics at this time; however since he is elderly male and if he does not show any improvement, we may change the antibiotics in few days. Rah Goff MD
[2018-04-24 07:33] LABS: HEMOGLOBIN 10.8 g/dL (12.0-18.0); MEAN CORPUSCULAR HEMOGLOBIN 29.7 pg (27.0-31.0); MEAN CORPUSCULAR HGB CONC 33.4 g/dL (33.0-37.0); MEAN PLATELET VOLUME 7.8 fL (7.2-11.7); RBC 3.65 Mil/uL (4.40-5.90); RED CELL DISTRIBUTION WIDTH 15.4 % (11.5-14.5); WHITE BLOOD COUNT 6.4 K/uL (4.8-10.8)
[2018-04-24 07:55] LABS: ALB/GLOB RATIO 1.2 (1.0-2.1); ALBUMIN 2.9 g/dL (3.5-5.0); ALT/SGPT 26 U/L (21-72); AST/SGOT 20 U/L (17-59); BLOOD UREA NITROGEN 16 mg/dL (9-20); CALCIUM 7.9 mg/dl (8.6-10.4); GFR NON-AFRICAN AMERICAN > 60
[2018-04-24] MEDS: Bisacodyl 5mg EC Tab PO SCH (09:57)
[2018-04-24] MEDS: Potassium Chloride 20 mEq ER Tab PO SCH ×2 (09:58→18:12)
[2018-04-24] MEDS: MethylPREDNISolone 40 mg Vial IVP SCH (09:58)
[2018-04-24] MEDS: Fluticasone-Vilanterol 200/25mcg Diskus INH SCH (11:17)
--- NOTE | 2018-04-24 11:28 | CP.PCM.PN ---
Subjective - Date & Time of Evaluation Date of Evaluation: 04/24/18 Time of Evaluation: 11:25 - Subjective Subjective: comfortable no cough still has rash buttock no pain Objective - Vital Signs/Intake and Output Vital Signs (last 24 hours): Temp Pulse Resp BP Pulse Ox 97.0 F L 90 20 138/47 L 94 L 04/24/18 07:00 04/24/18 08:00 04/24/18 07:00 04/24/18 10:00 04/24/18 07:00 Intake and Output: 04/24/18 04/24/18 06:59 18:59 Intake Total 920 Balance 920 - Medications Medications: Current Medications Acetaminophen (Tylenol 325mg Tab) 650 mg PO Q6 PRN PRN Reason: Headache Last Admin: 04/22/18 15:14 Dose: 650 mg Albuterol/Ipratropium (Duoneb 3 Mg/0.5 Mg (3 Ml) Ud) 3 ml INH RQ4 [facility] Last Admin: 04/24/18 11:18 Dose: 3 ml Bisacodyl (Dulcolax) 10 mg PO DAILY [facility] Last Admin: 04/24/18 09:57 Dose: Not Given Fluticasone/Vilanterol (Breo Ellipta 200-25 Mcg Inh) 1 puff INH RQD [facility] Last Admin: 04/24/18 11:17 Dose: Not Given Furosemide (Lasix) 20 mg IVP BID [facility] Last Admin: 04/24/18 10:00 Dose: 20 mg Hydrocortisone (Cortizone 0.5% Cream) 1 applic TOP BID [facility] Last Admin: 04/24/18 10:02 Dose: 1 applic Azithromycin 500 mg/ Sodium (Chloride) 250 mls @ 250 mls/hr IVPB DAILY@1800 [place]; Protocol Last Admin: 04/23/18 18:25 Dose: 250 mls/hr Methylprednisolone (Solu-Medrol) 40 mg IVP DAILY [facility] Last Admin: 04/24/18 09:58 Dose: 40 mg Metoclopramide HCl (Reglan) 5 mg IVPB Q6H [facility] Last Admin: 04/24/18 08:38 Dose: 5 mg Metoprolol Tartrate (Lopressor) 25 mg PO BID [facility] Last Admin: 04/24/18 09:58 Dose: 25 mg Montelukast Sodium (Singulair) 10 mg PO HS [facility] Last Admin: 04/23/18 21:47 Dose: 10 mg Pantoprazole Sodium (Protonix Inj) 40 mg IVP Q12H [place] Last Admin: 04/24/18 02:05 Dose: 40 mg Potassium Chloride (K-Dur 20 Meq Er Tab) 40 meq PO BID [place] Stop: 04/24/18 18:01 Last Admin: 04/24/18 09:58 Dose: 40 meq Valacyclovir HCl (Valtrex) 500 mg PO TID [facility]; Protocol Last Admin: 04/24/18 09:58 Dose: 500 mg - Labs Labs: 04/24/18 07:27 04/24/18 07:27 PT 12.3 SECONDS (9.7-12.2) H 04/19/18 11:54 INR 1.1 04/19/18 11:54 APTT 28 SECONDS (21-34) D 04/19/18 11:54 - Constitutional Appears: Non-toxic - Head Exam Head Exam: ATRAUMATIC - Eye Exam Eye Exam: Normal appearance Pupil Exam: NORMAL ACCOMODATION - ENT Exam ENT Exam: Mucous Membranes Moist - Neck Exam Neck Exam: Full ROM - Respiratory Exam Respiratory Exam: Decreased Breath Sounds - Cardiovascular Exam Cardiovascular Exam: REGULAR RHYTHM - GI/Abdominal Exam GI & Abdominal Exam: Normal Bowel Sounds - Rectal Exam Additional comments: rash buttocks - Extremities Exam Extremities Exam: Normal Inspection - Back Exam Back Exam: NORMAL INSPECTION Additional comments: rash - Neurological Exam Neurological Exam: Alert, Awake, Normal Gait, Oriented x3 - Psychiatric Exam Psychiatric exam: Normal Mood - Skin Skin Exam: Normal Color Assessment and Plan - Assessment and Plan (Free Text) Assessment: ac pnumonia improved ac raskh buttochs possble herpes zoster Plan: awaite infectios diease consult
--- NOTE | 2018-04-24 14:42 | CP.PCM.PN ---
Subjective - Date & Time of Evaluation Date of Evaluation: 04/24/18 Time of Evaluation: 14:42 - Subjective Subjective: No new complaints Objective - Vital Signs/Intake and Output Vital Signs (last 24 hours): Temp Pulse Resp BP Pulse Ox 97.0 F L 90 20 138/47 L 94 L 04/24/18 07:00 04/24/18 08:00 04/24/18 07:00 04/24/18 10:00 04/24/18 07:00 Intake and Output: 04/24/18 04/24/18 06:59 18:59 Intake Total 920 Balance 920 - Medications Medications: Current Medications Acetaminophen (Tylenol 325mg Tab) 650 mg PO Q6 PRN PRN Reason: Headache Last Admin: 04/22/18 15:14 Dose: 650 mg Albuterol/Ipratropium (Duoneb 3 Mg/0.5 Mg (3 Ml) Ud) 3 ml INH RQ4 [facility] Last Admin: 04/24/18 11:18 Dose: 3 ml Fluticasone/Vilanterol (Breo Ellipta 200-25 Mcg Inh) 1 puff INH RQD [facility] Last Admin: 04/24/18 11:17 Dose: Not Given Furosemide (Lasix) 20 mg IVP BID [facility] Last Admin: 04/24/18 10:00 Dose: 20 mg Hydrocortisone (Cortizone 0.5% Cream) 1 applic TOP BID [facility] Last Admin: 04/24/18 10:02 Dose: 1 applic Azithromycin 500 mg/ Sodium (Chloride) 250 mls @ 250 mls/hr IVPB DAILY@1800 [place]; Protocol Last Admin: 04/23/18 18:25 Dose: 250 mls/hr Methylprednisolone (Solu-Medrol) 40 mg IVP DAILY [facility] Last Admin: 04/24/18 09:58 Dose: 40 mg Metoprolol Tartrate (Lopressor) 25 mg PO BID [facility] Last Admin: 04/24/18 09:58 Dose: 25 mg Montelukast Sodium (Singulair) 10 mg PO HS [facility] Last Admin: 04/23/18 21:47 Dose: 10 mg Pantoprazole Sodium (Protonix Inj) 40 mg IVP Q12H [facility] Last Admin: 04/24/18 14:14 Dose: 40 mg Potassium Chloride (K-Dur 20 Meq Er Tab) 40 meq PO BID [facility] Stop: 04/24/18 18:01 Last Admin: 04/24/18 09:58 Dose: 40 meq Valacyclovir HCl (Valtrex) 500 mg PO TID [facility]; Protocol Last Admin: 04/24/18 14:14 Dose: 500 mg - Labs Labs: 04/24/18 07:27 04/24/18 07:27 PT 12.3 SECONDS (9.7-12.2) H 04/19/18 11:54 INR 1.1 04/19/18 11:54 APTT 28 SECONDS (21-34) D 04/19/18 11:54 - Constitutional Appears: No Acute Distress - Head Exam Head Exam: ATRAUMATIC, NORMAL INSPECTION, NORMOCEPHALIC - Eye Exam Eye Exam: EOMI, Normal appearance. absent: Scleral icterus - ENT Exam ENT Exam: Mucous Membranes Moist - Neck Exam Neck Exam: Full ROM, Normal Inspection. absent: Thyromegaly - Respiratory Exam Respiratory Exam: Rhonchi, NORMAL BREATHING PATTERN. absent: Wheezes, Respiratory Distress - Cardiovascular Exam Cardiovascular Exam: REGULAR RHYTHM, +S1, +S2. absent: Murmur - GI/Abdominal Exam GI & Abdominal Exam: Soft, Normal Bowel Sounds. absent: Tenderness - Neurological Exam Neurological Exam: Alert, Awake, Oriented x3 - Psychiatric Exam Psychiatric exam: Normal Affect, Normal Mood - Skin Skin Exam: Warm Assessment and Plan - Assessment and Plan (Free Text) Assessment: 87 year old man with COPD exacerbation on solumdedrol, bronchodilators, abx Echo done: images reviewed by me: Normal LVEF, stage 1 DD, mild MR, TR, PI, mild LVH, normal wall motion, Mild with Vmax 1.9 m/s. > Continue supportive care for COPD bronchitis: clinically improved still congested with reduced BS at base > Inc lasix to 20mg IV BID for better diuresis > NSVT: Mg was low replace and re-eval, continue metoprolol : ----> Keep Mg .2.0 > Low K+: replace and re-eval > No additional cardiac w/u needed at present, other than medical therapy. > GI w/u , GI prophylaxis > CT chest results suggest patchy opacities LAI: ?PNA > VZV rash on back Supportive care/ID eval/ABX
--- NOTE | 2018-04-24 15:09 | CP.PCM.PN ---
Subjective - Date & Time of Evaluation Date of Evaluation: 04/24/18 Time of Evaluation: 15:00 - Subjective Subjective: dictated Objective - Vital Signs/Intake and Output Vital Signs (last 24 hours): Temp Pulse Resp BP Pulse Ox 97.0 F L 90 20 138/47 L 94 L 04/24/18 07:00 04/24/18 08:00 04/24/18 07:00 04/24/18 10:00 04/24/18 07:00 Intake and Output: 04/24/18 04/24/18 06:59 18:59 Intake Total 920 Balance 920 - Medications Medications: Current Medications Acetaminophen (Tylenol 325mg Tab) 650 mg PO Q6 PRN PRN Reason: Headache Last Admin: 04/22/18 15:14 Dose: 650 mg Albuterol/Ipratropium (Duoneb 3 Mg/0.5 Mg (3 Ml) Ud) 3 ml INH RQ4 [facility] Last Admin: 04/24/18 11:18 Dose: 3 ml Fluticasone/Vilanterol (Breo Ellipta 200-25 Mcg Inh) 1 puff INH RQD [facility] Last Admin: 04/24/18 11:17 Dose: Not Given Furosemide (Lasix) 20 mg IVP BID [facility] Last Admin: 04/24/18 10:00 Dose: 20 mg Hydrocortisone (Cortizone 0.5% Cream) 1 applic TOP BID [facility] Last Admin: 04/24/18 10:02 Dose: 1 applic Azithromycin 500 mg/ Sodium (Chloride) 250 mls @ 250 mls/hr IVPB DAILY@1800 [place]; Protocol Last Admin: 04/23/18 18:25 Dose: 250 mls/hr Methylprednisolone (Solu-Medrol) 40 mg IVP DAILY [facility] Last Admin: 04/24/18 09:58 Dose: 40 mg Metoprolol Tartrate (Lopressor) 25 mg PO BID [facility] Last Admin: 04/24/18 09:58 Dose: 25 mg Montelukast Sodium (Singulair) 10 mg PO HS [facility] Last Admin: 04/23/18 21:47 Dose: 10 mg Pantoprazole Sodium (Protonix Inj) 40 mg IVP Q12H [facility] Last Admin: 04/24/18 14:14 Dose: 40 mg Potassium Chloride (K-Dur 20 Meq Er Tab) 40 meq PO BID [facility] Stop: 04/24/18 18:01 Last Admin: 04/24/18 09:58 Dose: 40 meq Valacyclovir HCl (Valtrex) 500 mg PO TID [facility]; Protocol Last Admin: 04/24/18 14:14 Dose: 500 mg - Labs Labs: 04/24/18 07:27 04/24/18 07:27 PT 12.3 SECONDS (9.7-12.2) H 04/19/18 11:54 INR 1.1 04/19/18 11:54 APTT 28 SECONDS (21-34) D 04/19/18 11:54
--- NOTE | 2018-04-24 17:48 | CP.PCM.PN ---
Subjective - Date & Time of Evaluation Date of Evaluation: 04/24/18 Time of Evaluation: 17:46 - Subjective Subjective: Pt is seen and examined Denies cough or SOB Objective - Vital Signs/Intake and Output Vital Signs (last 24 hours): Temp Pulse Resp BP Pulse Ox 97.5 F L 70 20 137/84 96 04/24/18 15:50 04/24/18 15:50 04/24/18 15:50 04/24/18 15:50 04/24/18 15:50 Intake and Output: 04/24/18 04/24/18 06:59 18:59 Intake Total 920 Balance 920 - Medications Medications: Current Medications Acetaminophen (Tylenol 325mg Tab) 650 mg PO Q6 PRN PRN Reason: Headache Last Admin: 04/22/18 15:14 Dose: 650 mg Albuterol/Ipratropium (Duoneb 3 Mg/0.5 Mg (3 Ml) Ud) 3 ml INH RQ4 [facility] Last Admin: 04/24/18 11:18 Dose: 3 ml Fluticasone/Vilanterol (Breo Ellipta 200-25 Mcg Inh) 1 puff INH RQD [facility] Last Admin: 04/24/18 11:17 Dose: Not Given Furosemide (Lasix) 20 mg IVP BID [facility] Last Admin: 04/24/18 10:00 Dose: 20 mg Hydrocortisone (Cortizone 0.5% Cream) 1 applic TOP BID [facility] Last Admin: 04/24/18 10:02 Dose: 1 applic Azithromycin 500 mg/ Sodium (Chloride) 250 mls @ 250 mls/hr IVPB DAILY@1800 [place]; Protocol Last Admin: 04/23/18 18:25 Dose: 250 mls/hr Methylprednisolone (Solu-Medrol) 40 mg IVP DAILY [facility] Last Admin: 04/24/18 09:58 Dose: 40 mg Metoprolol Tartrate (Lopressor) 25 mg PO BID [facility] Last Admin: 04/24/18 09:58 Dose: 25 mg Montelukast Sodium (Singulair) 10 mg PO HS [facility] Last Admin: 04/23/18 21:47 Dose: 10 mg Pantoprazole Sodium (Protonix Inj) 40 mg IVP Q12H [facility] Last Admin: 04/24/18 14:14 Dose: 40 mg Potassium Chloride (K-Dur 20 Meq Er Tab) 40 meq PO BID [facility] Stop: 04/24/18 18:01 Last Admin: 04/24/18 09:58 Dose: 40 meq Valacyclovir HCl (Valtrex) 500 mg PO TID [place]; Protocol Last Admin: 04/24/18 14:14 Dose: 500 mg - Labs Labs: 04/24/18 07:27 04/24/18 07:27 PT 12.3 SECONDS (9.7-12.2) H 04/19/18 11:54 INR 1.1 04/19/18 11:54 APTT 28 SECONDS (21-34) D 04/19/18 11:54 - Head Exam Head Exam: NORMAL INSPECTION - Eye Exam Eye Exam: Normal appearance - ENT Exam ENT Exam: Mucous Membranes Moist - Respiratory Exam Respiratory Exam: Clear to Ausculation Bilateral - Cardiovascular Exam Cardiovascular Exam: REGULAR RHYTHM, +S1, +S2 - GI/Abdominal Exam GI & Abdominal Exam: Soft, Normal Bowel Sounds - Neurological Exam Neurological Exam: Alert, Oriented x3 Assessment and Plan (1) COPD exacerbation Status: Acute (2) Pneumonia Status: Acute - Assessment and Plan (Free Text) Plan: Continue Abx Breo Ellipta Bronchodilators DVT/GI prophalaxis
[2018-04-24] MEDS: Azithromycin 500 MG in Sodium Chloride 0.9% 250 ML IVPB SCH (18:15)
--- NOTE | 2018-04-24 20:13 | CP.PCM.CON ---
History of Present Illness - History of Present Illness History of Present Illness: asked to see patient by PMD Has Zoster left lumbosacral area c/o cough and congestion - Hx COPD growing gram neg in sputum Cefepime added consider increasing Valtrex to 1g tid Review of Systems - Review of Systems All systems: reviewed and no additional remarkable complaints except - Constitutional Constitutional: As Per HPI - EENT Eyes: absent: As Per HPI, Blind Spots, Blurred Vision, Change in Vision, Decreased Night Vision, Diplopia, Discharge, Dry Eye, Exophthalmos, Floaters, Ir ritation, Itchy Eyes, Loss of Peripheral Vision, Pain, Photophobia, Requires Corrective Lenses, Sees Flashes, Spots in Vision, Tunnel Vision, Other Visual Disturbances, Loss of Vision, Other Ears: absent: As Per HPI, Decreased Hearing, Ear Discharge, Ear Pain, Tinnitus, Abnormal Hearing, Disequilibrium, Dizziness, Other Nose/Mouth/Throat: absent: As Per HPI, Epistaxis, Nasal Congestion, Nasal Discharge, Nasal Obstruction, Nasal Trauma, Nose Pain, Post Nasal Drip, Sinus Pain, Sinus Pressure, Bleeding Gums, Change in Voice, Dental Pain, Dry Mouth, Dysphagia, Halitosis, Hoarsness, Lip Swelling, Mouth Lesions, Mouth Pain, Odynophagia, Sore Throat, Throat Swelling, Tongue Swelling, Facial Pain, Neck Pain, Neck Mass, Other - Cardiovascular Cardiovascular: As Per HPI. absent: Acrocyanosis, Chest Pain, Chest Pain at Rest, Chest Pain with Activity, Claudication, Diaphoresis, Dyspnea, Dyspnea on Exertion, Edema, Irregular Heart Rhythm, Pain Radiating to Arm/Neck/Jaw, Leg Edema, Leg Ulcers, Lightheadedness, Orthopnea, Palpitations, Paroxysmal Nocturnal Dyspnea, Pedal Edema, Radiating Pain, Rapid Heart Rate, Slow Heart Rate, Syncope, Other - Respiratory Respiratory: As Per HPI, Cough, Dyspnea. absent: Hemoptysis - Gastrointestinal Gastrointestinal: absent: As Per HPI, Abdominal Pain, Belching, Bloating, Change in Bowel Habits, Change in Stool Character, Coffee Ground Emesis, Constipation, Cramping, Diarrhea, Dyspepsia, Dysphagia, Early Satiety, Excessive Flatus, Fecal Incontinence, Heartburn, Hematemesis, Hematochezia, Loose Stools, Melena, Nausea, Odynophagia, Temesmus, Vomiting, Other - Genitourinary Genitourinary: absent: As Per HPI, Change in Urinary Stream, Difficulty Ur inating, Dysuria, Flank Pain, Hematuria, Pyuria, Nocturia, Urinary Incontinence, Urinary Frequency, Urinary Hesitance, Urinary Urgency, Voiding Freq/Small Amts, Freq UTI, Hx Renal/Bladder Calculi, Hx /Renal Surgery, Bladder Distension, Other - Musculoskeletal Musculoskeletal: absent: As Per HPI, Abnormal Gait, Arthralgias, Atrophy, Back Pain, Deformity, Joint Swelling, Limited Range of Motion, Loss of Height, Muscle Cramps, Muscle Weakness, Myalgias, Neck Pain, Numbness, Radiating Pain into Limb, Stiffness, Tingling, Other - Integumentary Integumentary: As Per HPI - Neurological Neurological: As Per HPI - Psychiatric Psychiatric: absent: As Per HPI, Abnormal Sleep Pattern, Anhedonia, Anxiety, Auditory Hallucinations, Behavioral Changes, Change in Appetite, Change in Libido, Confusion, Depression, Difficulty Concentrating, Hallucinations, Homicidal Ideation, Hopelessness, Irritability, Memory Loss, Mood Swings, Panic Attacks, Paranoia, Suicidal Ideation, Visual Hallucinations, Tactile Hallucinations, Other - Endocrine Endocrine: absent: As Per HPI, Change in Body Appearance, Change in Libido, Cold Intolorance, Deepening of Voice, Excessive Sweating, Fatigue, Flushing, Heat Intolorance, Increase in Ring/Shoe/Hat Size, Palpitations, Polydipsia, Polyphagia, Polyuria, Other - Hematologic/Lymphatic Hematologic: absent: As Per HPI, Easy Bleeding, Easy Bruising, Lymphadenopathy, Other Past Patient History - Infectious Disease Hx of Infectious Diseases: None - Past Medical History & Family History Past Medical History?: Yes - Past Social History Smoking Status: Never Smoked - CARDIAC Hx Hypertension: Yes - PULMONARY Hx Asthma: Yes - NEUROLOGICAL Hx Neurological Disorder: No - HEENT Hx HEENT Problems: No - RENAL Hx Chronic Kidney Disease: No - ENDOCRINE/METABOLIC Hx Endocrine Disorders: No - HEMATOLOGICAL/ONCOLOGICAL Hx Blood Disorders: No - INTEGUMENTARY Hx Dermatological Problems: No - MUSCULOSKELETAL/RHEUMATOLOGICAL Hx Falls: No - GASTROINTESTINAL Hx Constipation: Yes - GENITOURINARY/GYNECOLOGICAL Hx Genitourinary Disorders: No - PSYCHIATRIC Hx Substance Use: No - SURGICAL HISTORY Hx Coronary Stent: Yes - ANESTHESIA Hx Anesthesia: Yes Hx Anesthesia Reactions: No Meds Home Medications: Home Medication List Medication Instructions Recorded Confirmed Type Furosemide [Lasix] 20 mg PO BID 10 Days tab 04/25/18 Rx Methylprednisolone [Medrol Dose 4 mg PO DAILY #21 mg 04/25/18 Rx Pack (21 tabs)] RX: Ciprofloxacin [Cipro] 500 mg PO Q12H 7 Days tab 04/25/18 Rx RX: Fluticasone/Vilanterol 200/25 1 puff INH RQD #1 unit 04/25/18 Rx [Breo Ellipta 200-25 Mcg INH] RX: valACYclovir [Valtrex] 1,000 mg PO TID 7 Days tab 04/25/18 Rx Allergies/Adverse Reactions: Allergies Allergy/AdvReac Type Severity Reaction Status Date / Time No Known Allergies Allergy Unverified 04/18/18 02:43 - Medications Medications: Current Medications Acetaminophen (Tylenol 325mg Tab) 650 mg PO Q6 PRN PRN Reason: Headache Last Admin: 04/24/18 18:13 Dose: 650 mg Albuterol/Ipratropium (Duoneb 3 Mg/0.5 Mg (3 Ml) Ud) 3 ml INH RQ4 [place] Last Admin: 04/24/18 19:14 Dose: 3 ml Fluticasone/Vilanterol (Breo Ellipta 200-25 Mcg Inh) 1 puff INH RQD [place] Last Admin: 04/24/18 11:17 Dose: Not Given Furosemide (Lasix) 20 mg IVP BID [facility] Hydrocortisone (Cortizone 0.5% Cream) 1 applic TOP BID [facility] Last Admin: 04/24/18 18:12 Dose: 1 applic Azithromycin 500 mg/ Sodium (Chloride) 250 mls @ 250 mls/hr IVPB DAILY@1800 [place]; Protocol Last Admin: 04/24/18 18:15 Dose: 250 mls/hr Cefepime HCl (Maxipime Iv 1 Gm Premix) 1 gm in 50 mls @ 100 mls/hr IVPB Q12H [place]; Protocol Methylprednisolone (Solu-Medrol) 40 mg IVP DAILY [facility] Last Admin: 04/24/18 09:58 Dose: 40 mg Metoprolol Tartrate (Lopressor) 25 mg PO BID [facility] Last Admin: 04/24/18 18:13 Dose: 25 mg Montelukast Sodium (Singulair) 10 mg PO HS [facility] Last Admin: 04/23/18 21:47 Dose: 10 mg Pantoprazole Sodium (Protonix Inj) 40 mg IVP Q12H [facility] Last Admin: 04/24/18 14:14 Dose: 40 mg Valacyclovir HCl (Valtrex) 500 mg PO TID [facility]; Protocol Last Admin: 04/24/18 18:12 Dose: 500 mg Physical Exam - Constitutional Appears: Non-toxic, Chronically Ill - Head Exam Head Exam: NORMOCEPHALIC - Eye Exam Eye Exam: PERRL. absent: Scleral icterus - ENT Exam ENT Exam: Mucous Membranes Dry, Normal External Ear Exam - Neck Exam Neck exam: Negative for: Lymphadenopathy - Respiratory Exam Respiratory Exam: Decreased Breath Sounds - Cardiovascular Exam Cardiovascular Exam: REGULAR RHYTHM - GI/Abdominal Exam GI & Abdominal Exam: Diminished Bowel Sounds, Soft. absent: Tenderness - Rectal Exam Rectal Exam: Deferred - Exam Exam: NORMAL INSPECTION - Extremities Exam Extremities exam: Negative for: pedal edema - Back Exam Back exam: absent: CVA tenderness (L), CVA tenderness (R), paraspinal tenderness - Neurological Exam Neurological exam: Alert, CN II-XII Intact, Oriented x3, Reflexes Normal - Psychiatric Exam Psychiatric exam: Normal Mood - Skin Skin Exam: Erythema, Rash Results - Vital Signs Recent Vital Signs: Last Vital Signs Temp 97.5 F L 04/24/18 15:50 Pulse 70 04/24/18 15:50 Resp 20 04/24/18 15:50 BP 137/84 04/24/18 18:13 Pulse Ox 96 04/24/18 15:50 - Labs Result Diagrams: 04/25/18 08:00 04/25/18 08:00 Labs: Laboratory Results - last 24 hr 04/22/18 04/23/18 04/24/18 13:45 20:08 07:27 WBC 6.4 RBC 3.65 L Hgb 10.8 L Hct 32.5 L MCV 89.0 D MCH 29.7 MCHC 33.4 RDW 15.4 H Plt Count 337 D MPV 7.8 Sodium Potassium Chloride Carbon Dioxide Anion Gap BUN Creatinine Est GFR ( Amer) Est GFR (Non-Af Amer) Random Glucose Calcium Total Bilirubin AST ALT Alkaline Phosphatase Total Protein Albumin Globulin Albumin/Globulin Ratio Carcinoembryonic Ag CA 19-9 Antigen Ur L.pneumophila Ag Negative VZV IgM Antibody <=0.90 01/25/19 01/25/19 07:27 18:57 WBC RBC Hgb Hct MCV MCH MCHC RDW Plt Count MPV Sodium 133 Potassium 2.9 L Chloride 96 L Carbon Dioxide 31 H Anion Gap 9 L BUN 16 Creatinine 0.8 Est GFR ( Amer) > 60 Est GFR (Non-Af Amer) > 60 Random Glucose 97 Calcium 7.9 L Total Bilirubin 0.4 AST 20 ALT 26 Alkaline Phosphatase 60 Total Protein 5.2 L Albumin 2.9 L D Globulin 2.3 Albumin/Globulin Ratio 1.2 Carcinoembryonic Ag 2.0 CA 19-9 Antigen 29.8 Ur L.pneumophila Ag VZV IgM Antibody Assessment & Plan (1) Zoster Status: Acute (2) COPD exacerbation Status: Acute (3) Chronic congestive heart failure Status: Acute (4) Pneumonia Status: Acute - Assessment and Plan (Free Text) Assessment: add antibiotics- cipro on d/c cont valtrex 1g tid
[2018-04-24] MEDS: Cefepime IV 1 gm in Dextrose 1 GM/50 ML BAG IVPB SCH (22:00)
--- NOTE | 2018-04-24 22:34 | PN ---
DATE: 04/24/2018 LOCATION: 667, bed B. SUBJECTIVE: This is an 87-year-old male seen and examined in rounds without significant clinical changes but intermittent periods of mild abdominal discomfort postprandial, with intermittent periods of shortness of breath. The entire chart is reviewed including but not limited to most recent lab results today which showed hemoglobin of 10.8, hematocrit 32.5. PHYSICAL EXAMINATION: GENERAL: An 87-year-old male, awake, alert. VITAL SIGNS: Afebrile with pulse of 74, respiratory rate 20 to 22, blood pressure 130/82. HEENT: Showed pale dry oral mucous membrane. Nonicteric sclerae. LUNGS: Few scattered crepitation. Decreased air entry at bases. HEART: Positive S1 and S2. ABDOMEN: Soft with mild generalized tenderness. No mass or organomegaly. No rebound tenderness or guarding. EXTREMITIES: Without significant clubbing, cyanosis, or edema. IMPRESSION: 1. Re-exacerbation of peptic ulcer disease. 2. Recurrent hematemesis, coffee-ground material, subsided. 3. Known history of hypertension, bronchial asthma, coronary artery disease with status post coronary stent insertion. SUGGESTIONS: 1. Continue current management. 2. Blood transfusion as needed to keep hemoglobin around 10 gram percent. Cancer markers including CEA and PSA. 3. No aggressive GI workup in the meantime for now until the patient is more stable clinically and as needed and if there is subsequent drop of hemoglobin and hematocrit. 4. Further recommendations to follow. Johann Guerra MD
[2018-04-25] MEDS: Albuterol-Ipratrop 3 mg / 0.5 (3 ml) UD INH SCH ×5 (01:35→16:36)
[2018-04-25] MEDS: Fluticasone-Vilanterol 200/25mcg Diskus INH SCH (07:54)
[2018-04-25 08:20] LABS: BASO % 0.1 % (0.0-2.0); EOS % 0.2 % (0.0-4.0); HEMOGLOBIN 11.3 g/dL (12.0-18.0); LYMPH % 14.5 % (20.0-40.0); MEAN CELL VOLUME 88.8 fL (80.0-94.0); MEAN CORPUSCULAR HEMOGLOBIN 29.5 pg (27.0-31.0); MEAN CORPUSCULAR HGB CONC 33.2 g/dL (33.0-37.0); MEAN PLATELET VOLUME 7.8 fL (7.2-11.7); MONO # 0.7 K/uL (0.0-0.8); MONO % 10.4 % (0.0-10.0); NEUT # 4.9 K/uL (1.8-7.0); NEUT % 74.8 % (50.0-75.0); RBC 3.82 Mil/uL (4.40-5.90); WHITE BLOOD COUNT 6.6 K/uL (4.8-10.8)
--- NOTE | 2018-04-25 08:35 | CP.PCM.PN ---
Subjective - Date & Time of Evaluation Date of Evaluation: 04/25/18 Time of Evaluation: 08:33 - Subjective Subjective: Events reviewed. Objective - Vital Signs/Intake and Output Vital Signs (last 24 hours): Temp Pulse Resp BP Pulse Ox 97.4 F L 71 20 111/72 96 04/24/18 23:20 04/24/18 23:20 04/24/18 23:20 04/24/18 23:20 04/24/18 23:20 Intake and Output: 04/25/18 04/25/18 06:59 18:59 Intake Total 420 Balance 420 - Medications Medications: Current Medications Acetaminophen (Tylenol 325mg Tab) 650 mg PO Q6 PRN PRN Reason: Headache Last Admin: 04/24/18 18:13 Dose: 650 mg Albuterol/Ipratropium (Duoneb 3 Mg/0.5 Mg (3 Ml) Ud) 3 ml INH RQ4 [facility] Last Admin: 04/25/18 07:54 Dose: 3 ml Fluticasone/Vilanterol (Breo Ellipta 200-25 Mcg Inh) 1 puff INH RQD [facility] Last Admin: 04/25/18 07:54 Dose: 1 puff Furosemide (Lasix) 20 mg IVP BID [facility] Last Admin: 04/24/18 21:08 Dose: 20 mg Hydrocortisone (Cortizone 0.5% Cream) 1 applic TOP BID [facility] Last Admin: 04/24/18 18:12 Dose: 1 applic Azithromycin 500 mg/ Sodium (Chloride) 250 mls @ 250 mls/hr IVPB DAILY@1800 [place]; Protocol Last Admin: 04/24/18 18:15 Dose: 250 mls/hr Cefepime HCl (Maxipime Iv 1 Gm Premix) 1 gm in 50 mls @ 100 mls/hr IVPB Q12H [facility]; Protocol Last Admin: 04/24/18 22:00 Dose: 100 mls/hr Methylprednisolone (Solu-Medrol) 40 mg IVP DAILY [facility] Last Admin: 04/24/18 09:58 Dose: 40 mg Metoprolol Tartrate (Lopressor) 25 mg PO BID [facility] Last Admin: 04/24/18 18:13 Dose: 25 mg Montelukast Sodium (Singulair) 10 mg PO HS [facility] Last Admin: 04/24/18 22:19 Dose: 10 mg Pantoprazole Sodium (Protonix Inj) 40 mg IVP Q12H [facility] Last Admin: 04/25/18 02:08 Dose: 40 mg Valacyclovir HCl (Valtrex) 1,000 mg PO TID [facility]; Protocol - Labs Labs: 04/25/18 08:00 04/24/18 07:27 PT 12.3 SECONDS (9.7-12.2) H 04/19/18 11:54 INR 1.1 04/19/18 11:54 APTT 28 SECONDS (21-34) D 04/19/18 11:54 Assessment and Plan - Assessment and Plan (Free Text) Assessment: - Constitutional Appears: No Acute Distress - Head Exam Head Exam: ATRAUMATIC, NORMAL INSPECTION, NORMOCEPHALIC - Eye Exam Eye Exam: EOMI, Normal appearance. absent: Scleral icterus - ENT Exam ENT Exam: Mucous Membranes Moist - Neck Exam Neck Exam: Full ROM, Normal Inspection. absent: Thyromegaly - Respiratory Exam Respiratory Exam: Rhonchi, NORMAL BREATHING PATTERN. absent: Wheezes, Respiratory Distress - Cardiovascular Exam Cardiovascular Exam: REGULAR RHYTHM, +S1, +S2. absent: Murmur - GI/Abdominal Exam GI & Abdominal Exam: Soft, Normal Bowel Sounds. absent: Tenderness - Neurological Exam Neurological Exam: Alert, Awake, Oriented x3 - Psychiatric Exam Psychiatric exam: Normal Affect, Normal Mood - Skin Skin Exam: Warm Assessment and Plan - Assessment and Plan (Free Text) Assessment: 87 year old man with COPD exacerbation on solumdedrol, bronchodilators, abx Echo done: images reviewed by me: Normal LVEF, stage 1 DD, mild MR, TR, PI, mild LVH, normal wall motion, Mild with Vmax 1.9 m/s. > Continue supportive care for COPD bronchitis: clinically improved still congested with reduced BS at base > Inc lasix to 20mg IV BID for better diuresis > NSVT: Mg was low replace and re-eval, continue metoprolol : ----> Keep Mg .2.0 > Low K+: replace and re-eval > No additional cardiac w/u needed at present, other than medical therapy. > GI w/u , GI prophylaxis > CT chest results suggest patchy opacities LAI: ?PNA > VZV rash on back Supportive care/ID eval/ABX
[2018-04-25 08:37] LABS: ALB/GLOB RATIO 1.2 (1.0-2.1); ALBUMIN 3.1 g/dL (3.5-5.0); ALT/SGPT 25 U/L (21-72); AST/SGOT 20 U/L (17-59); BLOOD UREA NITROGEN 21 mg/dL (9-20); CALCIUM 8.2 mg/dl (8.6-10.4); GFR NON-AFRICAN AMERICAN 57
[2018-04-25 08:42] VITALS: BP 142/87; PULSE 68; TEMP 97.3; O2SAT 97
[2018-04-25] MEDS: Cefepime IV 1 gm in Dextrose 1 GM/50 ML BAG IVPB SCH (10:46)
--- NOTE | 2018-04-25 10:46 | PN ---
DATE: 04/25/2018 LOCATION: 667, bed B. SUBJECTIVE: This is an 87-year-old male seen and examined in rounds, appears to be somewhat awake and alert without any reported active bleeding, but intermittent period of mild shortness of breath. No chest pain or palpitation. No chills or fever. The entire chart is reviewed and the most recent lab results showed hemoglobin 11.3, hematocrit 33.9 with CO2 content of 34 indicative of respiratory alkalosis, BUN 21 with normal creatinine, calcium 8.2, albumin 3.1, total protein 5.7 with normal cancer markers. PHYSICAL EXAMINATION: GENERAL: An 87-year-old male. Denied any evidence of active GI bleeding. VITAL SIGNS: Afebrile with pulse of 64, respiratory rate 20-22, blood pressure of 136/74. HEENT: Pale and dry mucous membrane. Nonicteric sclerae. LUNGS: Few scattered crepitation. Decreased air entry at bases. HEART: Positive S1 and S2. ABDOMEN: Soft with mild generalized tenderness with mild distention. No mass or organomegaly. No rebound tenderness or guarding. EXTREMITIES: Without significant clubbing, cyanosis or edema. NEUROLOGIC: No reported new neurological deficits, sensory or motor. IMPRESSION: 1. 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 2. Re-exacerbation of chronic obstructive pulmonary disease. 3. Recurrent episode of hematemesis of coffee-ground material, subsided. 4. Known history of hypertension, coronary artery disease status post coronary stent insertion. 5. Pneumonia by recent history. SUGGESTIONS: 1. Continue current management. 2. Repeat stool for occult blood due to the patient's anemia. 3. Due to the malnutrition with hypoalbuminemia and hypoproteinemia, peripheral hyperalimentation to be considered. 4. Further recommendation to follow. Johann Guerra MD
[2018-04-25] MEDS: MethylPREDNISolone 40 mg Vial IVP SCH (10:47)
--- NOTE | 2018-04-25 11:35 | CP.PCM.PN ---
Subjective - Date & Time of Evaluation Date of Evaluation: 04/25/18 Time of Evaluation: 11:21 - Subjective Subjective: pt feels good no no cough or sob back rash possible johnson stated on medications already Objective - Vital Signs/Intake and Output Vital Signs (last 24 hours): Temp Pulse Resp BP Pulse Ox 97.3 F L 68 20 142/87 97 04/25/18 08:41 04/25/18 08:41 04/25/18 08:41 04/25/18 10:47 04/25/18 08:41 Intake and Output: 04/25/18 04/25/18 06:59 18:59 Intake Total 420 Balance 420 - Medications Medications: Current Medications Acetaminophen (Tylenol 325mg Tab) 650 mg PO Q6 PRN PRN Reason: Headache Last Admin: 04/24/18 18:13 Dose: 650 mg Albuterol/Ipratropium (Duoneb 3 Mg/0.5 Mg (3 Ml) Ud) 3 ml INH RQ4 [facility] Last Admin: 04/25/18 07:54 Dose: 3 ml Fluticasone/Vilanterol (Breo Ellipta 200-25 Mcg Inh) 1 puff INH RQD [place] Last Admin: 04/25/18 07:54 Dose: 1 puff Furosemide (Lasix) 20 mg IVP BID [facility] Last Admin: 04/25/18 10:47 Dose: 20 mg Hydrocortisone (Cortizone 0.5% Cream) 1 applic TOP BID [facility] Last Admin: 04/25/18 10:48 Dose: 1 applic Azithromycin 500 mg/ Sodium (Chloride) 250 mls @ 250 mls/hr IVPB DAILY@1800 [place]; Protocol Last Admin: 04/24/18 18:15 Dose: 250 mls/hr Cefepime HCl (Maxipime Iv 1 Gm Premix) 1 gm in 50 mls @ 100 mls/hr IVPB Q12H [facility]; Protocol Last Admin: 04/25/18 10:46 Dose: 100 mls/hr Methylprednisolone (Solu-Medrol) 40 mg IVP DAILY [facility] Last Admin: 04/25/18 10:47 Dose: 40 mg Metoprolol Tartrate (Lopressor) 25 mg PO BID [facility] Last Admin: 04/25/18 10:47 Dose: 25 mg Montelukast Sodium (Singulair) 10 mg PO HS [facility] Last Admin: 04/24/18 22:19 Dose: 10 mg Pantoprazole Sodium (Protonix Inj) 40 mg IVP Q12H [facility] Last Admin: 04/25/18 02:08 Dose: 40 mg Valacyclovir HCl (Valtrex) 1,000 mg PO TID [facility]; Protocol Last Admin: 04/25/18 10:46 Dose: 1,000 mg - Labs Labs: 04/25/18 08:00 04/25/18 08:00 PT 12.3 SECONDS (9.7-12.2) H 04/19/18 11:54 INR 1.1 04/19/18 11:54 APTT 28 SECONDS (21-34) D 04/19/18 11:54 - Constitutional Appears: Non-toxic - Head Exam Head Exam: ATRAUMATIC - Eye Exam Eye Exam: Normal appearance Pupil Exam: NORMAL ACCOMODATION - ENT Exam ENT Exam: Mucous Membranes Moist - Neck Exam Neck Exam: Normal Inspection - Respiratory Exam Respiratory Exam: Clear to Ausculation Bilateral - Cardiovascular Exam Cardiovascular Exam: REGULAR RHYTHM - GI/Abdominal Exam GI & Abdominal Exam: Normal Bowel Sounds - Rectal Exam Rectal Exam: NORMAL INSPECTION - Exam Exam: NORMAL INSPECTION - Extremities Exam Extremities Exam: Normal Inspection - Back Exam Back Exam: NORMAL INSPECTION - Neurological Exam Neurological Exam: Alert, Awake, Normal Gait, Oriented x3 - Psychiatric Exam Psychiatric exam: Normal Affect - Skin Skin Exam: Normal Color Assessment and Plan - Assessment and Plan (Free Text) Assessment: s/p pnumonia s/p exacerbation of copd ac herpes zoster Plan: will disch today to [facility] on cipro and valtex and order neb at home
--- NOTE | 2018-04-25 12:04 | CP.PCM.PN ---
Subjective - Date & Time of Evaluation Date of Evaluation: 04/25/18 Time of Evaluation: 12:04 - Subjective Subjective: PATIENT SEEN AND EXAMINED AT THE BEDSIDE Objective - Vital Signs/Intake and Output Vital Signs (last 24 hours): Temp Pulse Resp BP Pulse Ox 97.3 F L 68 20 142/87 97 04/25/18 08:41 04/25/18 08:41 04/25/18 08:41 04/25/18 10:47 04/25/18 08:41 Intake and Output: 04/25/18 04/25/18 06:59 18:59 Intake Total 420 Balance 420 - Medications Medications: Current Medications Acetaminophen (Tylenol 325mg Tab) 650 mg PO Q6 PRN PRN Reason: Headache Last Admin: 04/24/18 18:13 Dose: 650 mg Albuterol/Ipratropium (Duoneb 3 Mg/0.5 Mg (3 Ml) Ud) 3 ml INH RQ4 [facility] Last Admin: 04/25/18 11:35 Dose: 3 ml Fluticasone/Vilanterol (Breo Ellipta 200-25 Mcg Inh) 1 puff INH RQD [place] Last Admin: 04/25/18 07:54 Dose: 1 puff Furosemide (Lasix) 20 mg IVP BID [facility] Last Admin: 04/25/18 10:47 Dose: 20 mg Hydrocortisone (Cortizone 0.5% Cream) 1 applic TOP BID [facility] Last Admin: 04/25/18 10:48 Dose: 1 applic Azithromycin 500 mg/ Sodium (Chloride) 250 mls @ 250 mls/hr IVPB DAILY@1800 [place]; Protocol Last Admin: 04/24/18 18:15 Dose: 250 mls/hr Cefepime HCl (Maxipime Iv 1 Gm Premix) 1 gm in 50 mls @ 100 mls/hr IVPB Q12H [place]; Protocol Last Admin: 04/25/18 10:46 Dose: 100 mls/hr Methylprednisolone (Solu-Medrol) 40 mg IVP DAILY [facility] Last Admin: 04/25/18 10:47 Dose: 40 mg Metoprolol Tartrate (Lopressor) 25 mg PO BID [place] Last Admin: 04/25/18 10:47 Dose: 25 mg Montelukast Sodium (Singulair) 10 mg PO HS [facility] Last Admin: 04/24/18 22:19 Dose: 10 mg Pantoprazole Sodium (Protonix Inj) 40 mg IVP Q12H [place] Last Admin: 04/25/18 02:08 Dose: 40 mg Valacyclovir HCl (Valtrex) 1,000 mg PO TID [place]; Protocol Last Admin: 04/25/18 10:46 Dose: 1,000 mg - Labs Labs: 04/25/18 08:00 04/25/18 08:00 PT 12.3 SECONDS (9.7-12.2) H 04/19/18 11:54 INR 1.1 04/19/18 11:54 APTT 28 SECONDS (21-34) D 04/19/18 11:54 Assessment and Plan - Assessment and Plan (Free Text) Assessment: FOLLOW UP WITH DR LUTHER IN HER OFFICE ON FRIDAY (04/28/2018) -----CALL FOR APPOINTMENT FOLLOW UP WITH DR ROLLE IN HIS OFFICE -----CALL FOR APPOITNEMT CONTINUE HOME MEDICATION NEW PRESCRIPTION GIVEN VALTEX 1000MG PO TID FOR 7 DAYS CIPRO 500 MG PO Q12H FOR 7 DAYS BREO 1 PUFF DAILY MEDROL DOSE PACK DIRECTED LASIX 20 MG BID PO FOR 10 DAYS HAVE A BANANA EVERY OTHER ACTIVITY TOLERATED CALL DR UGARTE OR GO THE EMERGENCY ROOM IF SYMPTOM RETURN OR WORSENING
[2018-04-25 20:09] LABS: N MENINGITIS ACY/W135 NEGATIVE (NEGATIVE); N MENINGITIS B/ECOLI K1 NEGATIVE (NEGATIVE); STREP PNEUMONIAE NEGATIVE (NEGATIVE); STREPTOCOCCUS B NEGATIVE (NEGATIVE)
== END 2018-04-25 16:55 | disposition home or self-care (01) | DRG 190 ==
LOC: C.ER 02:23 → C.9E 06:01 → C.6T 14:32 → OBSVTOIN 04-20 16:38 → C.6T 04-22 23:01
PROVIDERS: ADMIT Internal Medicine; ATTEND Internal Medicine
DX: J44.1 Chronic obstructive pulmonary disease with (acute) exacerbation (principal); I50.31 Acute diastolic (congestive) heart failure; J18.9 Pneumonia, unspecified organism; K27.4 Chronic or unspecified peptic ulcer, site unspecified, with hemorrhage; E46 Unspecified protein-calorie malnutrition; J45.901 Unspecified asthma with (acute) exacerbation; E87.4 Mixed disorder of acid-base balance; I47.2 Ventricular tachycardia; J44.0 Chronic obstructive pulmonary disease with (acute) lower respiratory infection; D64.9 Anemia, unspecified; I11.0 Hypertensive heart disease with heart failure; I25.10 Atherosclerotic heart disease of native coronary artery without angina pectoris; Z95.5 Presence of coronary angioplasty implant and graft; B02.9 Zoster without complications; K44.9 Diaphragmatic hernia without obstruction or gangrene; E88.09 Other disorders of plasma-protein metabolism, not elsewhere classified; E77.8 Other disorders of glycoprotein metabolism; E83.42 Hypomagnesemia; E87.6 Hypokalemia; K29.80 Duodenitis without bleeding; K29.70 Gastritis, unspecified, without bleeding; K20.9 Esophagitis, unspecified; R19.7 Diarrhea, unspecified